=== PATIENT | male | born 1960 | race Caucasian/White ===

== ENCOUNTER 2022-07-14 12:38 | Inpatient (IN) | payer MEDICAID, SELFPAY ==
[2022-07-14] VITALS (8 sets, daily range): BP systolic 160–200; BP diastolic 90–100; PULSE 78–85; RESP 14–22; TEMP 36.6–37; O2SAT 95–99; BMI 20.5; BMI 20.4
--- NOTE | 2022-07-14 13:25 | ECG_ITS ---
APPROVED REPORT Exam: Resting ECG HR:82 bpm ECG Measurements Heart Rate 82 AXES IN 143 P 62 QRSd 93 QRS 63 QT 387 T 64 QTc 425 Conclusion SINUS RHYTHM WITH OCCASIONAL SUPRAVENTRICULAR PREMATURE COMPLEXES POSSIBLE RIGHT VENTRICULAR CONDUCTION DELAY [RSR (QR) IN V1/V2] BORDERLINE ECG UNCONFIRMED REPORT Electronically signed by : Jarett Nguyen MD 07/16/2022 19:59:10
--- NOTE | 2022-07-14 13:25 | ECG_ITS ---
APPROVED REPORT Exam: Resting ECG HR:67 bpm ECG Measurements Heart Rate 67 AXES KS 132 P 18 QRSd 93 QRS 76 QT 414 T 75 QTc 430 Conclusion SINUS RHYTHM NORMAL ECG UNCONFIRMED REPORT Electronically signed by : Jarett Nguyen MD 07/15/2022 20:05:04
--- NOTE | 2022-07-14 13:37 | CT_ITS ---
PROCEDURE INFORMATION: Exam: CTA Abdominal Aorta and Bilateral Lower Extremities (Run-off) With Contrast Exam date and time: 07/14/2022 2:10 PM Age: 61 years old Clinical indication: Edema and swelling, leg or foot; Location not specified; Patient HX: PT has right lower leg ischemia and swelling-- [facility] and he was without it for 8-10 days -- has pain swelling and discoloration of right lower leg calf area down; Additional info: Right lower extremity ischemia TECHNIQUE: Imaging protocol: Computed tomographic angiography of the of the abdominal aorta, pelvis and bilateral lower extremities with contrast. 3D rendering (Not supervised by radiologist): MIP and/or 3D reconstructed images were created by the technologist. Radiation optimization: All CT scans at this facility use at least one of these dose optimization techniques: automated exposure control; mA and/or kV adjustment per patient size (includes targeted exams where dose is matched to clinical indication); or iterative reconstruction. Contrast material: ISOVUE; Contrast volume: 120 ml; Contrast route: IV; COMPARISON: No relevant prior studies available. FINDINGS: Aorta: No aortic aneurysm. No aortic dissection. Celiac trunk and mesenteric arteries: No occlusion or significant stenosis. Renal arteries: No occlusion or significant stenosis. 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 Vascular stent noted in the right femoral artery. No flow evident within the right popliteal artery or three-vessel below the knee runoff. Right infrapopliteal arteries: See Right femoral/popliteal arteries finding. Left iliac arteries: Short-segment stenoses within the left common iliac artery and distal external iliac artery. Left femoral/popliteal arteries: Intermittent flow noted within the left common femoral and femoral arteries, with multiple segments of dense calcification noted. Flow noted in the left popliteal artery, with 3 vessel below the knee runoff to the level of the ankle. Left infrapopliteal arteries: No occlusion or significant stenosis. Liver: No mass. Gallbladder and bile ducts: Unremarkable. No calcified stones. No ductal dilation. Pancreas: Unremarkable. No mass. No ductal dilation. Spleen: Normal. No splenomegaly. Adrenal glands: Normal. No mass. Kidneys and ureters: Normal. No mass. Stomach and bowel: Unremarkable. No obstruction. No mucosal thickening. Appendix: No evidence of appendicitis. Urinary bladder: Unremarkable. No mass. Reproductive: Unremarkable as visualized. Intraperitoneal space: Unremarkable. No free air. No significant fluid collection. Lymph nodes: No lymphadenopathy. Bones/joints: No acute fracture. No dislocation. Soft tissues: Subcutaneous edema within the right lower leg and foot. Other findings: Extensive vascular calcification within the abdomen. IMPRESSION: 1. 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 2. Short-segment stenoses within the left common iliac artery and distal external iliac artery. 3. 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 Vascular stent noted in the right femoral artery. No flow evident within the right popliteal artery or three-vessel below the knee runoff. 4. Subcutaneous edema within the right lower leg and foot. 5. Intermittent flow noted within the left common femoral and femoral arteries, with multiple segments of dense calcification noted. Flow noted in the left
--- NOTE | 2022-07-14 13:45 | PC.NURSE ---
spoke with raj in pharmacy for heparin drip
[2022-07-14 13:48] LABS: Chloride 94 mmol/L (98-107)
[2022-07-14 13:49] LABS: Potassium 3.3 mmoL/L (3.5-5.1); Sodium 132 mmol/L (136-145)
[2022-07-14 13:51] LABS: Alanine Aminotransferase 113 U/L (12-78); Aspartate Amino Transferase 169 U/L (17-59); Blood Urea Nitrogen 11 mg/dl (9-20); Creatinine Clearance Estimated 64 mL/min (50-200); Estimated Glomerular Filt Rate 168 ml/min (>60); GFR (African American) 203 ML/MIN (>60)
--- NOTE | 2022-07-14 13:51 | HMH.EDGENADL ---
Discharge Plan Disposition Patient Disposition: Xfer Other Condition: Serious Clinical Impressions Clinical Impression: Critical limb ischemia of right lower extremity Discharge ED Provider: Lisa Sandoval Adult HPI General Chief complaint: PAIN Stated complaint: pain in Rt leg Time Seen by Provider: 07/14/22 12:43 Mode of Arrival: Wheelchair Source of Information: Patient Limitations: No Limitations Description of Symptoms (Recalled from ER Triage Doc. by RN): to ed per pvt car with c/o pain, swelling rt lower leg and foot. pt states hx of pvd with graft taking coumadin states was off meds x 7 days around lab[place] currently taking now. states seen at ct for same and they told me it needs to come off pt rt foot cold to touch, unable to obtain a pedal pulse with doppler on fritz extremities. swelling to rt lower leg c/o increasing pain unable to sleep at night. History of Present Illness HPI narrative: 61-year-old male presenting to the emergency department with right foot and leg pain. Symptoms started about 1 week ago, progressively getting worse. His right foot is painful, swollen, cool to the touch. Pain is constant, crampy, achy. The pain radiates into the calf and the upper leg. He has a history of vascular disease, has a stent that he calls, a cadaver graft in his thigh. He takes warfarin. Unfortunately, was out of his medication for about 1 week. Goal INR between 2 and 3. Says he has bad circulation, but has never been told that he has a DVT or PE. Current tobacco smoker Related Data Home Medications Medication Instructions Recorded Confirmed aspirin 81 mg chewable tablet 81 mg PO DAILY Heart disease 07/14/22 07/14/22 atorvastatin 80 mg tablet 80 mg PO DAILY Cholesterol 07/14/22 07/14/22 warfarin 10 mg tablet 10 mg PO DIRECTED Blood thinner 07/14/22 07/14/22 warfarin 7.5 mg tablet 7.5 mg PO DIRECTED Blood thinner 07/14/22 07/14/22 Allergies Allergy/AdvReac Type Severity Reaction Status Date / Time No Known Allergies Allergy Unverified 09/30/17 14:33 PFSH PFS Social History Smoking Status: Current every day smoker alcohol intake: never current occupational status: unemployed Travel in the last 8 weeks: None ROS Obtained: Yes All systems reviewed & no additional complaints except as documented Constitutional Constitutional: Reports body ache, Denies chills, Denies fever(s), Denies headache(s) and Reports weakness Eyes Eyes: Denies blurry vision and Denies loss of vision ENT Ears, Nose, Mouth, and Throat: Denies headache(s) Cardiovascular Cardiovascular: Reports acrocyanosis, Denies chest pain, Reports edema (right foot), Denies irregular heart rhythm, Denies palpitations and Reports pedal edema Respiratory Respiratory: Denies chest congestion, Denies cough and Denies pain with breathing Gastrointestinal Gastrointestingal: Denies abdominal pain, nausea or vomiting Musculoskeletal Musculoskeletal: Reports atrophy, Denies back pain, Denies joint swelling, Reports muscle cramps, Reports muscle weakness, Reports myalgias, Reports numbness and Denies tingling Integumentary/Breasts Skin/Breast: Reports change in pigmentation, Denies redness and Reports skin pain Neurologic Neurologic: Denies headache(s), Denies loss of vision, Reports numbness, Denies tingling and Reports weakness Endocrine Endocrine: Denies palpitations Hematologic/Lymphatic Henatologic/Lymphatic: Denies easy bleeding and Denies easy bruising Physical Exam General General appearance: alert and in no apparent distress Head Head exam: atraumatic and normocephalic Eye Eye exam: Present normal appearance and EOMI; Absent scleral icterus ENT ENT exam: Present normal exam and normal oropharynx Neck Neck exam: Present normal inspection Respiratory Respiratory exam: Present normal lung sounds bilaterally; Absent respiratory distress or wheezes Cardiovascular Cardiovascular exam: Present regular rate, normal rhythm
[2022-07-14 13:52] LABS: Albumin Level 3.9 g/dl (3.5-5.0); Albumin/Globulin Ratio 1.6 (1.1-1.8); Alkaline Phosphatase 151 U/L (38-126); Anion Gap 10.3 mEq/L (5-15); Bilirubin,Total 0.4 mg/dl (0.2-1.3); Calcium 8.8 mg/dl (8.4-10.2); Carbon Dioxide 31 mmol/L (22.0-30.0); Globulin 2.5 g/dL (1.3-3.2); Glucose 103 mg/dl (74-100); Total Protein,Serum 6.4 g/dl (6.3-8.2)
[2022-07-14 13:54] LABS: Activated Partial Thrombo Time 37.4 seconds (22.8-30.6); INR 3.23 (0.9-1.1); Prothrombin Time 32.6 seconds (10.1-12.5)
[2022-07-14 14:03] LABS: Basophils # 0.1 K/mm3 (0-0.2); Basophils % 0.4 % (0.1-2.0); Eosinophils # 0.1 K/mm3 (0.0-0.4); Eosinophils % 0.6 % (0.1-12.0); Hemoglobin 15.2 g/dL (14.1-18.0); Lymphocytes # 1.4 K/mm3 (0.7-4.5); Mean Corpuscular Hemoglobin 30.9 pg (27.0-31.2); Mean Corpuscular Volume 93.7 fl (80-94); Mean Platelet Volume 8.1 fl (7.4-10.4); Monocytes % 6.4 % (1.7-9.3); Neutrophils % 83.7 % (37.0-80.0); Platelet Count 336 K/mm3 (142-424); Red Cell Distribution Width 13.9 % (11.5-17.5); White Blood Count 15.5 K/mm3 (4.8-10.8)
[2022-07-14 14:06] LABS: MANUAL DIFFERENTIAL MANUAL DIFFERENTIAL (MANUAL DIFF)
--- NOTE | 2022-07-14 14:11 | PC.NURSE ---
pt to ct at this time
[2022-07-14 14:19] LABS: Lymphocytes % 11 % (10-50); Monocytes % 11 % (2-9); Neutrophils % 78 % (42-76); Platelet Estimate Normal; RBC Morphology Normal; Total Cells Counted 100
[2022-07-14 15:28] LABS: Coronavirus 19, PCR Not Detected (NotDetected); Influenza A, PCR Not Detected (NotDetected); Influenza B, PCR Not Detected (NotDetected)
--- NOTE | 2022-07-14 16:11 | PC.NURSE ---
placed call to [facility], Dr Marie speaking with Dr Jauregui
--- NOTE | 2022-07-14 16:18 | PC.NURSE ---
Dr Sandoval spoke with Dr aguayo, pt accepted awaiting call from hospitalist and transfer knitter
--- NOTE | 2022-07-14 17:11 | PC.NURSE ---
pt talking with on phone
--- NOTE | 2022-07-14 17:17 | PC.NURSE ---
[facility] was called for follow up, pt agrees to go to [facility], they will call hospitalist and to be advised that there are no immediate beds at this time but they will work on it.
--- NOTE | 2022-07-14 17:38 | PC.NURSE ---
urine output 1500cc
--- NOTE | 2022-07-14 18:01 | PC.NURSE ---
DR BOURNE SPEAKING WITH [facility]
--- NOTE | 2022-07-14 18:04 | PC.NURSE ---
Admitted per dr villa, still awaiting a bed
--- NOTE | 2022-07-14 18:12 | PC.NURSE ---
paged service doc
--- NOTE | 2022-07-14 18:12 | PC.NURSE ---
DR CANTOR SPOKE WITH DR SHARPE SAID IF WE ADMIT HERE HE WILL CONSULT
--- NOTE | 2022-07-14 18:40 | PC.NURSE ---
report called to floor
--- NOTE | 2022-07-14 20:21 | PC.NURSE ---
pt arrived to floor via stretcher at 20:10
[2022-07-14 20:51] LABS: PTT Heparin (inpatient only) 74.9 Seconds (23.6-34.0)
--- NOTE | 2022-07-14 20:55 | PC.NURSE ---
Spoke with Hellen at nightwatch. Notified of ptt 74.9. States to keep Heparin drip at 20ml/hr.
[2022-07-15] VITALS (23 sets, daily range): BP systolic 133–203; BP diastolic 71–113; PULSE 60–83; RESP 16–20; TEMP 36.6–37.3; O2SAT 90–99
--- NOTE | 2022-07-15 | IR_ITS ---
APPROVED REPORT Patient Location: Inpatient PROCEDURES Attempted left femoral artery access INDICATION Peripheral artery disease with limb threatening ischemia Informed consent was obtained prior to the procedure. COMPLICATIONS None Estimated Blood Loss: Less than 10 mls TECHNIQUE 1% lidocaine used to anesthetize the left femoral groin. Multiple attempts were made to cannulate the left femoral artery. The left femoral artery was small calcified and after several attempts it was decided even with cannulation the small vessel would probably not except a 6 Lebanese interventional sheath. It was decided the risk of the procedure outweighed the potential benefits as it was unlikely the right leg could be percutaneously revascularized and cannulating the small left femoral artery with a large sheath could potentially create limb threat ischemia to the left leg IMPRESSION Attempted left femoral artery access which was aborted PLAN 1. Transfer patient to vascular surgery for consideration of amputation in [place] Electronically signed by : Jenaro Alcala MD 07/25/2022 14:30:17
--- NOTE | 2022-07-15 00:11 | PC.NURSE ---
Pt bed scale does not work, pt is nonweight bearing, pt verbalized weight
--- NOTE | 2022-07-15 00:12 | PC.NURSE ---
Updated [facility] on pt status and care. No beds available at this time.
[2022-07-15 03:16] LABS: Basophils # 0.1 K/mm3 (0-0.2); Basophils % 0.5 % (0.1-2.0); Eosinophils # 0.1 K/mm3 (0.0-0.4); Eosinophils % 0.7 % (0.1-12.0); Hematocrit 47.2 % (42.0-52.0); Hemoglobin 15.1 g/dL (14.1-18.0); Lymphocytes # 1.3 K/mm3 (0.7-4.5); Lymphocytes % 8.4 % (10-50); Mean Corpuscular HGB Conc 32.1 g/dL (31.8-35.4); Mean Corpuscular Hemoglobin 29.8 pg (27.0-31.2); Mean Corpuscular Volume 93.1 fl (80-94); Mean Platelet Volume 8.3 fl (7.4-10.4); Monocytes # 0.9 K/mm3 (0.1-1.0); Monocytes % 5.4 % (1.7-9.3); Neutrophils # 13.5 K/mm3 (1.8-7.8); Neutrophils % 85.1 % (37.0-80.0); Platelet Count 323 K/mm3 (142-424); Red Blood Count 5.07 M/mm3 (4.60-6.20); Red Cell Distribution Width 13.8 % (11.5-17.5); White Blood Count 15.9 K/mm3 (4.8-10.8)
[2022-07-15 03:17] LABS: MANUAL DIFFERENTIAL MANUAL DIFFERENTIAL (MANUAL DIFF)
[2022-07-15 03:25] LABS: Anion Gap 10.2 mEq/L (5-15); Blood Urea Nitrogen 10 mg/dl (9-20); Calcium 8.5 mg/dl (8.4-10.2); Carbon Dioxide 31 mmol/L (22.0-30.0); Chloride 94 mmol/L (98-107); Creatinine Clearance Estimated 63 mL/min (50-200); Estimated Glomerular Filt Rate 168 ml/min (>60); GFR (African American) 203 ML/MIN (>60); Glucose 106 mg/dl (74-100); Potassium 3.2 mmoL/L (3.5-5.1); Sodium 132 mmol/L (136-145)
[2022-07-15 03:34] LABS: Lymphocytes % 10 % (10-50); Monocytes % 3 % (2-9); Neutrophils % 82 % (42-76); Platelet Estimate Normal; RBC Morphology Normal; Total Cells Counted 100
[2022-07-15 03:55] LABS: PTT Heparin (inpatient only) 72.8 Seconds (23.6-34.0)
--- NOTE | 2022-07-15 03:55 | PC.NURSE ---
Lab called with PTT 72.8 results given to patient nurse Yumiko.
--- NOTE | 2022-07-15 04:00 | PC.NURSE ---
Spoke with Hellen at night watch results 72.8 given. Stated no change in rate, next PTT 07/16/22 at 6 am. Repeated and Verified. Information relayed to Mary Carmen REICH.
--- NOTE | 2022-07-15 04:35 | PC.WOUNDNOTE ---
Line drawn where leg starts to feel cooler. No pulse felt in right foot (MD aware). Pallor and cyanosis noted below right calf.
--- NOTE | 2022-07-15 04:48 | PC.NURSE ---
Updated [facility] on pt status and care. No beds available at this time.
--- NOTE | 2022-07-15 04:53 | PC.NURSE ---
Pt drinks taken away at 0300. Pt notified of NPO status. Has been NPO since 299. Will pass along in report.
--- NOTE | 2022-07-15 04:56 | PC.NURSE ---
Shift summary: Pt AOx4. Pt has c/o pain in RLE multiple times t/o shift. PRN Morphine administered per MAR with favorable results. Pt BP was elevated at beginning of shift. MD production foreman made aware. Pt BP now WNL after pain management, Metoprolol tartrate 50mg once and Amlodipine 10mg once. Pt RLE swollen, pallor, cyanotic, pulseless, cool to the touch. Leg has became warmer through the night but it still cool compared to left. Photo consent obtained, see nurse wound note. Heparin drip is running at 20ml/hr. NPO since 07/15 300. No other c/o voiced to staff. Call light within reach.
--- NOTE | 2022-07-15 05:18 | INFXCTL.NOTE ---
Shift summary: Pt AOx4. Pt has c/o pain in RLE multiple times t/o shift. PRN Morphine administered per MAR with favorable results. Pt BP was elevated at beginning of shift. MD market research consultant made aware. Pt BP now WNL after pain management, Lisinopril 10mg once and Amlodipine 10mg once. Pt RLE swollen, pallor, cyanotic, pulseless, cool to the touch. Leg has became warmer through the night but it still cool compared to left. Photo consent obtained, see nurse wound note. Heparin drip is running at 20ml/hr. NPO since 07/15 300. No other c/o voiced to staff. Call light within reach.
--- NOTE | 2022-07-15 05:33 | PC.NURSE ---
Shift summary: Pt AOx4. Pt has c/o pain in RLE multiple times t/o shift. PRN Morphine administered per MAR with favorable results. Pt BP was elevated at beginning of shift. MD senior receptionist made aware. Pt BP now WNL after pain management, lisinopril 10mg PO once and Amlodipine 10mg once. Pt RLE swollen, pallor, cyanotic, pulseless, cool to the touch. Leg has became warmer through the night but it still cool compared to left. Photo consent obtained, see nurse wound note. Heparin drip is running at 20ml/hr. NPO since 07/15 300. No other c/o voiced to staff. Call light within reach.
--- NOTE | 2022-07-15 06:46 | PC.NURSE ---
Pt states it is ok to update friend, Kael Tolbert, on pt status.
--- NOTE | 2022-07-15 07:19 | EXP.PHA.VTE ---
[facility] Pharmacy VTE Monitoring Patient Demographics Admission date: 07/14/22 Report Date: 07/15/22 Time: 07:19 Patient Allergies No Known Allergies Allergy (Unverified 09/30/17 14:33) Height: 1.7 m Weight: 58.967 kg Current Active Problems (Updated 07/14/22 @ 20:31 by Mary Carmen Lam RN) Critical limb ischemia of right lower extremity (Acute) VTE Risk Labs: VTE Related Lab Results Hgb 15.1 g/dL (14.1-18.0) 07/15/22 03:10 Hct 47.2 % (42.0-52.0) 07/15/22 03:10 Plt Count 323 K/mm3 (142-424) 07/15/22 03:10 PT 32.6 seconds (10.1-12.5) H 07/14/22 13:35 INR 3.23 (0.9-1.1) H 07/14/22 13:35 APTT 72.8 Seconds (23.6-34.0) H* 07/15/22 03:10 BUN 10 mg/dl (9-20) 07/15/22 03:10 Creatinine 0.50 mg/dl (0.66-1.25) L 07/15/22 03:10 Estimated Creat Clear 63 mL/min (50-200) 07/15/22 03:10 Prophylaxis VTE Prophylaxis Ordered?: Yes Types of VTE Prophylaxis: Pharmacological Pharmacologic Type: Heparin
--- NOTE | 2022-07-15 07:42 | HMH.PHAHEP ---
[facility] Pharmacy Heparin Dosing Demographic Data Admission date:: 07/14/22 Date: 07/15/22 Time: 07:42 Allergies Allergy/AdvReac Type Severity Reaction Status Date / Time No Known Allergies Allergy Unverified 09/30/17 14:33 Height: 1.7 m Weight: 59.4 kg Indication Medication therapy:: Heparin Current Active Problems (Updated 07/20/22 @ 00:00 by Background Daemon) HTN (hypertension) (Acute) Current smoker (Acute) PAD (peripheral artery disease) (Acute) Critical limb ischemia of right lower extremity (Acute) CVA?: No Bleeding problem?: No Kidney disease?: No SD?: No Desired PTT range:: 50-75 seconds Labs Anticoagulation Lab Results:: 07/14/22 07/15/22 13:35 03:10 Hgb 15.2 15.1 Hct 46.0 47.2 Plt Count 336 323 Monitoring Dose Monitor 1: Date: 07/14/22 Time: 14:00 PTT Result:: 37.4 Infusion Rate:: 1,000 UNITS/HR Comment:: 4,700 UNIT BOLUS Dose Monitor 2: Date: 07/14/22 Time: 20:15 PTT Result:: 74.9 Infusion Rate:: 1,000 UNITS/HR Dose Monitor 3: Date: 07/15/22 Time: 03:10 PTT Result:: 72.8 Infusion Rate:: 1,000 UNITS/HR Dose Monitor 4: Date: 07/15/22 Time: 08:45 PTT Result:: 65.1 Infusion Rate:: 1,000 UNITS/HR Dose Monitor 5: Date: 07/15/22 Time: 14:53 PTT Result:: 54.9 Infusion Rate:: 1,000 UNITS/HR Dose Monitor 6: Date: 07/16/22 Time: 06:04 PTT Result:: 48.1 Infusion Rate:: INCREASE RATE TO 1,100 UNITS/HR Comment:: 3,000 UNIT BOLUS Dose Monitor 7: Date: 07/16/22 Time: 12:01 PTT Result:: 61.5 Infusion Rate:: 1,100 UNITS/HR Dose Monitor 8: Date: 07/16/22 Time: 18:00 Comment:: HEPARIN DRIP STOPPED Core Measures Is INR > or = 2 at discharge?: No Most Recent Labs:: Laboratory Results - last 24 hr 07/14/22 13:35: WBC 15.5 H, RBC 4.90, Hgb 15.2, Hct 46.0, MCV 93.7, MCH 30.9, MCHC 33.0, RDW 13.9, Plt Count 336, MPV 8.1, Neut % (Auto) 83.7 H, Lymph % (Auto) 9.0 L, [place] % (Auto) 6.4, Eos % (Auto) 0.6, Baso % (Auto) 0.4, Neut # (Auto) 13.0 H, Lymph # (Auto) 1.4, [place] # (Auto) 1.0, Eos # (Auto) 0.1, Baso # (Auto) 0.1, Total Counted 100, Neutrophils % (Manual) 78 H, Lymphocytes % (Manual) 11, Monocytes % (Manual) 11 H, Platelet Estimate Normal, RBC Morphology Normal 07/14/22 13:35: PT 32.6 H, INR 3.23 H, APTT 37.4 H 07/14/22 13:35: Sodium 132 L, Potassium 3.3 L, Chloride 94 L, Carbon Dioxide 31 H, Anion Gap 10.3, BUN 11, Creatinine 0.50 L, Estimated Creat Clear 64, Estimated GFR 168, Est GFR ( Amer) 203, Glucose 103 H, Calcium 8.8, Total Bilirubin 0.4, AST 169 H, ALT 113 H, Alkaline Phosphatase 151 H, Total Protein 6.4, Albumin 3.9, Globulin 2.5, Albumin/Globulin Ratio 1.6 07/14/22 15:21: SARS-CoV-2 (PCR) Not detected, Influenza A Untype (PCR) Not detected, Influenza Type B (PCR) Not detected 07/14/22 20:15: APTT 74.9 H* 07/15/22 03:10: APTT 72.8 H* 07/15/22 03:10: WBC 15.9 H, RBC 5.07, Hgb 15.1, Hct 47.2, MCV 93.1, MCH 29.8, MCHC 32.1, RDW 13.8, Plt Count 323, MPV 8.3, Neut % (Auto) 85.1 H, Lymph % (Auto) 8.4 L, [place] % (Auto) 5.4, Eos % (Auto) 0.7, Baso % (Auto) 0.5, Neut # (Auto) 13.5 H, Lymph # (Auto) 1.3, [place] # (Auto) 0.9, Eos # (Auto) 0.1, Baso # (Auto) 0.1, Total Counted 100, Neutrophils % (Manual) 82 H, Band Neutrophils % 5.0, Lymphocytes % (Manual) 10, Monocytes % (Manual) 3, Platelet Estimate Normal, RBC Morphology Normal 07/15/22 03:10: Sodium 132 L, Potassium 3.2 L, Chloride 94 L, Carbon Dioxide 31 H, Anion Gap 10.2, BUN 10, Creatinine 0.50 L, Estimated Creat Clear 63, Estimated GFR 168, Est GFR ( Amer) 203, Glucose 106 H, Calcium 8.5 Were Heparin and Warfarin started on the same day?: No If not, why?: TRANSITION FROM HEPARIN BACK TO WARFARIN
--- NOTE | 2022-07-15 09:12 | EXP.CARD.CON ---
History of Present Illness History of Present Illness Consult date: 07/15/22 Requesting physician: Bjorn Flor Chief complaint: Leg pain, ischemic limb Additional Medical History:: PAD s/p vascular intervention to right leg at [place] Coumadin use HLD Former drinker Current 2 ppd smoker History of present illness: 61 year old white male presented to ED with complaint of right leg/foot pain x 1 week. Reports prior vascular procedure done at [facility] with cadaver graft placed but is unsure of timeline. Patient takes Coumadin but states around day he missed about 8 doses because [facility]. Pain started then but got significantly worse the past week. Upon presentation to ER no DP pulses were palpable or dopplerable on the right side. A CTA of the abdomen with run off showed complete occlusion to the right common femoral artery with no three vessel flow and interittent flow within the left common femoral and femoral arteries with flow noted to the left popliteal aretery with 3 vessel below the knee run off to the level of the ankles. Labs showed slight leukocytosis, renal function was adequate and PT/INR was 3.2. Patient was counseled on need for urgent vascular intervention and was placed on transfer [facility] but no beds were available. Patient was started on Heparin drip and admitted for cardiology consult. This morning, patient is resting, reports has numbness to right leg. still smokes 2 ppd. Denies chest pain or soa. [facility] Medical History (Updated 07/15/22 @ 09:44 by Lisa Horan APRN) Hyperlipidemia Social History (Updated 07/14/22 @ 20:33 by Mary Carmen Lam RN) Smoking Status: Current every day smoker years smoked: 40 alcohol intake: never current occupational status: unemployed Travel in the last 8 weeks: None Review of Systems Constitutional Constitutional: Denies headache(s) and Reports weakness Eyes Eyes: Denies loss of vision ENT Ears, Nose, Mouth, and Throat: Denies headache(s) *Cardiovascular Cardiovascular: Denies chest pain *Musculoskeletal Musculoskeletal: Reports numbness and Denies tingling *Neurologic Neurologic: Denies headache(s), Denies loss of vision, Reports numbness, Denies tingling and Reports weakness Exam Data for Last 24 hours Vital signs and Labs for Last 24 Hours: Temp Pulse Resp BP Pulse Ox 98.9 F 72 67 H 154/80 H 98 07/15/22 08:00 07/15/22 04:00 07/15/22 08:00 07/15/22 08:00 07/15/22 08:00 Laboratory Results - last 24 hr 07/14/22 13:35: WBC 15.5 H, RBC 4.90, Hgb 15.2, Hct 46.0, MCV 93.7, MCH 30.9, MCHC 33.0, RDW 13.9, Plt Count 336, MPV 8.1, Neut % (Auto) 83.7 H, Lymph % (Auto) 9.0 L, [place] % (Auto) 6.4, Eos % (Auto) 0.6, Baso % (Auto) 0.4, Neut # (Auto) 13.0 H, Lymph # (Auto) 1.4, [place] # (Auto) 1.0, Eos # (Auto) 0.1, Baso # (Auto) 0.1, Total Counted 100, Neutrophils % (Manual) 78 H, Lymphocytes % (Manual) 11, Monocytes % (Manual) 11 H, Platelet Estimate Normal, RBC Morphology Normal 07/14/22 13:35: PT 32.6 H, INR 3.23 H, APTT 37.4 H 07/14/22 13:35: Sodium 132 L, Potassium 3.3 L, Chloride 94 L, Carbon Dioxide 31 H, Anion Gap 10.3, BUN 11, Creatinine 0.50 L, Estimated Creat Clear 64, Estimated GFR 168, Est GFR ( Amer) 203, Glucose 103 H, Calcium 8.8, Total Bilirubin 0.4, AST 169 H, ALT 113 H, Alkaline Phosphatase 151 H, Total Protein 6.4, Albumin 3.9, Globulin 2.5, Albumin/Globulin Ratio 1.6 07/14/22 15:21: SARS-CoV-2 (PCR) Not detected, Influenza A Untype (PCR) Not detected, Influenza Type B (PCR) Not detected 07/14/22 20:15: APTT 74.9 H* 07/15/22 03:10: APTT 72.8 H* 07/15/22 03:10: WBC 15.9 H, RBC 5.07, Hgb 15.1, Hct 47.2, MCV 93.1, MCH 29.8, MCHC 32.1, RDW 13.8, Plt Count 323, MPV 8.3, Neut % (Auto) 85.1 H, Lymph % (Auto) 8.4 L, [place] % (Auto) 5.4, Eos % (Auto) 0.7, Baso % (Auto) 0.5, Neut # (Auto) 13.5 H, Lymph # (Auto) 1.3, [place] # (Auto) 0.9, Eos # (Auto) 0.1, Baso # (Auto) 0.1, Total Counted 100, Neutrophils % (Manual) 82
[2022-07-15 09:30] LABS: Prothrombin Time 22.7 seconds (10.1-12.5)
[2022-07-15 09:34] LABS: PTT Heparin (inpatient only) 65.1 Seconds (23.6-34.0)
--- NOTE | 2022-07-15 09:42 | PC.NURSE ---
[facility] called, update given; no beds available at this time
--- NOTE | 2022-07-15 09:45 | PC.NURSE ---
pt off floor with manufacturing lab technician rn's
--- NOTE | 2022-07-15 09:48 | PC.NURSE ---
Notified pharmacy of critical ppt
--- NOTE | 2022-07-15 10:53 | PC.NURSE ---
pt arrived back to the floor via Selena Bernstein RN; left femoral bandage is clean, dry and intact
--- NOTE | 2022-07-15 12:54 | EXP.HP ---
History of Present Illness *Admission Date: 07/14/22 *Reason for visit:: Right leg pain *History of present illness: 61-year-old white male, normally attends the [facility] for his health care, who has a long history of vascular disease and has been on warfarin therapy-compliant with this-but remains a heavy smoker. Came to the emergency department with a 3-day history of pain in his right foot. Foot was found to have significant evidence of vascular compromise with pain, pallor, pulselessness, and CTA showed evidence of blockage without runoff visible in the femoral-popliteal area near where the patient had a bypass previously. Patient declined transfer to the [facility], and patient was placed on the wait list at [facility] for transfer for vascular surgery however admitted to our hospital for pain control and fluids and cardiology evaluation for possible percutaneous intervention if amenable. This morning patient feels much better after IV fluids, heparinization and pain control. His main concern seems to be when he can eat breakfast this morning [facility] Medical History (Updated 07/15/22 @ 09:44 by Lisa Horan APRN) Hyperlipidemia Social History (Updated 07/14/22 @ 20:33 by Mary Carmen Lam RN) Smoking Status: Current every day smoker years smoked: 40 alcohol intake: never current occupational status: unemployed Travel in the last 8 weeks: None Review of Systems Review of Systems Review of systems (narrative): Other than his leg pain patient's really without complaints, during the exam he fixates on when he can eat breakfast. Constitutional Constitutional: Denies headache(s) and Reports weakness Eyes Eyes: Denies loss of vision ENT Ears, Nose, Mouth, and Throat: Denies headache(s) *Musculoskeletal Musculoskeletal: Reports numbness and Denies tingling *Neurologic Neurologic: Denies headache(s), Denies loss of vision, Reports numbness, Denies tingling and Reports weakness Meds Home Medications and Allergies Home Medications Medication Instructions Recorded Confirmed Type aspirin 81 mg chewable tablet 81 mg PO DAILY Heart disease 07/14/22 07/14/22 History atorvastatin 80 mg tablet 80 mg PO DAILY Cholesterol 07/14/22 07/14/22 History warfarin 10 mg tablet 10 mg PO DIRECTED Blood thinner 07/14/22 07/14/22 History warfarin 7.5 mg tablet 7.5 mg PO DIRECTED Blood thinner 07/14/22 07/14/22 History New Prescriptions to Start Prescriptions: Allergies Allergy/AdvReac Type Severity Reaction Status Date / Time No Known Allergies Allergy Unverified 09/30/17 14:33 Exam Data for Last 24 hours Vital signs and Labs for Last 24 Hours: Temp Pulse Resp BP Pulse Ox 99.1 F 71 16 158/84 H 98 07/15/22 10:55 07/15/22 12:10 07/15/22 12:10 07/15/22 12:10 07/15/22 12:10 Laboratory Results - last 24 hr 07/14/22 13:35: WBC 15.5 H, RBC 4.90, Hgb 15.2, Hct 46.0, MCV 93.7, MCH 30.9, MCHC 33.0, RDW 13.9, Plt Count 336, MPV 8.1, Neut % (Auto) 83.7 H, Lymph % (Auto) 9.0 L, [place] % (Auto) 6.4, Eos % (Auto) 0.6, Baso % (Auto) 0.4, Neut # (Auto) 13.0 H, Lymph # (Auto) 1.4, [place] # (Auto) 1.0, Eos # (Auto) 0.1, Baso # (Auto) 0.1, Total Counted 100, Neutrophils % (Manual) 78 H, Lymphocytes % (Manual) 11, Monocytes % (Manual) 11 H, Platelet Estimate Normal, RBC Morphology Normal 07/14/22 13:35: PT 32.6 H, INR 3.23 H, APTT 37.4 H 07/14/22 13:35: Sodium 132 L, Potassium 3.3 L, Chloride 94 L, Carbon Dioxide 31 H, Anion Gap 10.3, BUN 11, Creatinine 0.50 L, Estimated Creat Clear 64, Estimated GFR 168, Est GFR ( Amer) 203, Glucose 103 H, Calcium 8.8, Total Bilirubin 0.4, AST 169 H, ALT 113 H, Alkaline Phosphatase 151 H, Total Protein 6.4, Albumin 3.9, Globulin 2.5, Albumin/Globulin Ratio 1.6 07/14/22 15:21: SARS-CoV-2 (PCR) Not detected, Influenza A Untype (PCR) Not detected, Influenza Type B (PCR) Not detected 07/14/22 20:15: APTT 74.9 H* 07/15/22 03:10: APTT 72.8 H* 07/15/22 03:10: WBC 15.9
--- NOTE | 2022-07-15 13:01 | HMH.PHAINT1 ---
Pharmacy Intervention Comments: Home medication reconciliation complete using [facility] pharmacy list ([facility]) and patient interview.
[2022-07-15 15:14] LABS: PTT Heparin (inpatient only) 54.9 Seconds (23.6-34.0)
--- NOTE | 2022-07-15 15:24 | PC.NURSE ---
notified pharmacy of pt's ptt result
--- NOTE | 2022-07-15 15:27 | PC.NURSE ---
Pt is alert and oriented x4. RLE is pale and cool to the touch. Pulses are not palpable or able to be dopplered. He has complained of pain in the right foot that's been treated with prn pain meds. Some relief noted on reassessment but he still reported pain. A SASKIA Horan notified and new order of 1mg dilaudid IV q4-6hrs prn ordered. 1 dose has been administered at this time and will reassess effectiveness. Dressing to left femoral site has gauze and tegaderm in place. It is clean, dry and intact. Appetite has been good. Pt's only complaint has been pain in the rle. Bed is locked and in the lowest position, call light is within reach.
--- NOTE | 2022-07-15 18:24 | PC.NURSE ---
[facility] called for update, no beds available at this time
--- NOTE | 2022-07-15 23:42 | PC.NURSE ---
karen with pt access at [facility] called for updated vital signs and status, states no bed available at this time but will update us when available
[2022-07-16] VITALS: BP 169/91; PULSE 62; PULSE 80; RESP 16; TEMP 37.2; O2SAT 98
[2022-07-16 04:00] VITALS: BP 197/93; PULSE 75; PULSE 76; RESP 16; TEMP 36.9; O2SAT 95
[2022-07-16 04:09] VITALS: BMI 20.5
[2022-07-16 04:35] VITALS: BP 176/86
--- NOTE | 2022-07-16 05:02 | PC.NURSE ---
no changes in previous assessment, no acute distress, V/S noted with elevated b/p SBP 149-197; maps have trended over 100, edema noted to RLE, redness and absent pedal pulse noted, pt with pain rated 10, pt is requiring dilaudid as prescribed every 4 hours, and soft non-tender, active bowel sounds, but states last BM was friday, hep gtt remains at 1000units/hr, pt is alert and oriented x4, skin dry and scaly, still awaiting bed at [facility], telemetry reveals NSR with occasional PVC's, no other issues noted at this time.
--- NOTE | 2022-07-16 05:17 | PC.NURSE ---
[facility] called with update on pt, states they should have a bed today for him and is working on getting one available and will keep us updated.
[2022-07-16 06:14] LABS: Basophils # 0.2 K/mm3 (0-0.2); Basophils % 1.6 % (0.1-2.0); Eosinophils # 0.1 K/mm3 (0.0-0.4); Eosinophils % 1.1 % (0.1-12.0); Hemoglobin 15.8 g/dL (14.1-18.0); Lymphocytes # 1.2 K/mm3 (0.7-4.5); Lymphocytes % 9.8 % (10-50); Mean Corpuscular HGB Conc 32.9 g/dL (31.8-35.4); Mean Corpuscular Volume 94.2 fl (80-94); Mean Platelet Volume 7.3 fl (7.4-10.4); Monocytes # 0.7 K/mm3 (0.1-1.0); Monocytes % 5.3 % (1.7-9.3); Neutrophils # 10.3 K/mm3 (1.8-7.8); Neutrophils % 82.1 % (37.0-80.0); Platelet Count 325 K/mm3 (142-424); White Blood Count 12.6 K/mm3 (4.8-10.8)
[2022-07-16 06:24] LABS: PTT Heparin (inpatient only) 48.1 Seconds (23.6-34.0)
--- NOTE | 2022-07-16 06:37 | HMH.PHAINT ---
0637 ptt called to fam maki, 48.1, note new orders to give 3000 unit bolus, increase hep gtt to 1100 units/hr, verified with tatyana barnes rn
[2022-07-16 07:56] VITALS: BP 189/79; PULSE 74; RESP 18; TEMP 37; O2SAT 96
--- NOTE | 2022-07-16 07:59 | PC.NURSE ---
RN aware of elevated bp.
[2022-07-16 08:00] VITALS: PULSE 80
--- NOTE | 2022-07-16 08:42 | EXP.PN ---
Subjective *Date: 07/16/22 *Time: 08:42 Interval history: Patient feels pretty good, his leg is painless unless he moves it around and put stress on the musculature and then he has fairly significant pain. Unfortunately interventional cardiology procedure was unsuccessful secondary to access problems given patient's significant vascular disease. Exam Data for Last 24 hours Vital signs and Labs for Last 24 Hours: Temp Pulse Resp BP Pulse Ox 98.6 F 74 18 189/79 H 96 07/16/22 07:56 07/16/22 07:56 07/16/22 07:56 07/16/22 07:56 07/16/22 07:56 Laboratory Results - last 24 hr 07/15/22 08:59: APTT 65.1 H* 07/15/22 08:59: PT 22.7 H, INR 2.20 H 07/15/22 14:53: APTT 54.9 H* 07/16/22 06:04: WBC 12.6 H, RBC 5.10, Hgb 15.8, Hct 48.0, MCV 94.2 H, MCH 31.0, MCHC 32.9, RDW 14.0, Plt Count 325, MPV 7.3 L, Neut % (Auto) 82.1 H, Lymph % (Auto) 9.8 L, [place] % (Auto) 5.3, Eos % (Auto) 1.1, Baso % (Auto) 1.6, Neut # (Auto) 10.3 H, Lymph # (Auto) 1.2, [place] # (Auto) 0.7, Eos # (Auto) 0.1, Baso # (Auto) 0.2 07/16/22 06:04: APTT 48.1 H I & O for Last 24 hours: Intake & Output 07/13/22 07/14/22 07/15/22 07/16/22 11:59 11:59 11:59 11:59 Intake Total 332 / 332 1296 / 1296 Output Total 1450 / 1450 2650 / 2650 Balance -1118 / -1118 -1354 / -1354 Weight 130 lb 15.273 oz 130 lb 11.922 oz Constitutional Comments: Patient's pleasant, chronically ill-appearing, lungs have good air movement with smokers rhonchi, heart rate regular. Abdomen soft, poor circulation as previously noted, pale and cold right foot with significant pain in the calf whenever it is moved. Assessment and Plan *Assessment and plan (1) Critical limb ischemia of right lower extremity: Status: Acute Category: Medical Code(s): I70.221 - Atherosclerosis of [place] arteries of extremities with rest pain, right leg Plan Plan will be to try to have vascular surgery see him, were currently trying to engage multiple facilities to try to find a bed for appropriate transfer.
--- NOTE | 2022-07-16 09:09 | P.PN_ITS ---
Subjective Subjective Date: 07/16/22 Time: 08:00 Principal diagnosis: ischemic RLE Interval history: Patient still waiting on transfer to higher level of care. Remains on Hep drip. BP elevated at 189/79, will plan to increase meds today. Leg remains cool to touch, pale in color. Patient denies leg pain unless moves extremity. Exam Data for Last 24 hours Vital signs and Labs for Last 24 Hours: Temp Pulse Resp BP Pulse Ox 98.6 F 74 18 189/79 H 96 07/16/22 07:56 07/16/22 07:56 07/16/22 07:56 07/16/22 07:56 07/16/22 07:56 Laboratory Results - last 24 hr 07/15/22 08:59: APTT 65.1 H* 07/15/22 08:59: PT 22.7 H, INR 2.20 H 07/15/22 14:53: APTT 54.9 H* 07/16/22 06:04: WBC 12.6 H, RBC 5.10, Hgb 15.8, Hct 48.0, MCV 94.2 H, MCH 31.0, MCHC 32.9, RDW 14.0, Plt Count 325, MPV 7.3 L, Neut % (Auto) 82.1 H, Lymph % (Auto) 9.8 L, [place] % (Auto) 5.3, Eos % (Auto) 1.1, Baso % (Auto) 1.6, Neut # (Auto) 10.3 H, Lymph # (Auto) 1.2, [place] # (Auto) 0.7, Eos # (Auto) 0.1, Baso # ( Auto) 0.2 07/16/22 06:04: APTT 48.1 H I & O for Last 24 hours: Intake & Output 07/13/22 07/14/22 07/15/22 07/16/22 23:59 23:59 23:59 23:59 Intake Total 1383 / 1383 245 / 245 Output Total 200 / 450 2000 / 2300 1900 / 1900 Balance -200 / -450 -617 / -917 -1655 / -1655 Weight 130 lb 130 lb 15.273 oz 130 lb 11.922 oz Constitutional Constitutional: no acute distress *Routine Respiratory Exam Respiratory: Present CTA bilaterally and symmetric chest movement *Routine Cardiovascular Exam Cardiovascular: Present RRR, Normal S1 and Normal S2 *Routine Abdominal Exam Abdominal: Present soft and normoactive bowel sounds; Absent tenderness *Routine Extremities Exam Extremities: Absent edema Comments: Right leg remains pale, cool to touch, no palpable pulses. *Routine Skin Exam Skin: Present intact, dry and warm Detailed Neck Exam: Thyroids Thyroid: Absent bruit Progress Note: A&P Assessment and plan (1) Critical limb ischemia of right lower extremity: Status: Acute Assessment and Plan Assessment and Plan for All Diagnoses:: Critical Limb ischemia-Right -Currently on Hep drip -No beds available for transfer to [facility] at this time. Patient is agreeable to runoff with possible intervention by Dr. Alcala at this facility. Discussed risks vs. benefits with patient. He agrees 07/16- s/p failed attempt at runoff yesterday. Remains on hep drip awaiting transfer to vascular facility Hx of PAD -[facility] -Continue statin. Trend elevated LFTs Tobacco use-Current 2 ppd smoker -Discussed smoking cession with patient HTN -Start Losartan 07/16- Remains elevated. Increased losartan. CV stable: continue hep drip, awaiting transfer to vascular facility.
--- NOTE | 2022-07-16 10:40 | PC.NURSE ---
Spoke with [facility] who states that no beds are available at this time but will notify me if one becomes available
[2022-07-16 11:50] VITALS: BP 154/98; PULSE 77; RESP 16; TEMP 36.9; O2SAT 98
[2022-07-16 12:34] LABS: PTT Heparin (inpatient only) 61.5 Seconds (23.6-34.0)
--- NOTE | 2022-07-16 12:49 | PC.NURSE ---
notified pharmacy of ptt results, no changes to heparin drip
--- NOTE | 2022-07-16 15:35 | EXP.DC.SUM ---
General Admission date:: 07/14/22 Discharge date: 07/16/22 HPI HPI HPI: 61-year-old white male, normally attends the [facility] for his health care, who has a long history of vascular disease and has been on warfarin therapy-compliant with this-but remains a heavy smoker. Came to the emergency department with a 3-day history of pain in his right foot. Foot was found to have significant evidence of vascular compromise with pain, pallor, pulselessness, and CTA showed evidence of blockage without runoff visible in the femoral-popliteal area near where the patient had a bypass previously. Patient declined transfer to the [place], and patient was placed on the wait list at [facility] for transfer for vascular surgery however admitted to our hospital for pain control and fluids and cardiology evaluation for possible percutaneous intervention if amenable. This morning patient feels much better after IV fluids, heparinization and pain control. His main concern seems to be when he can eat breakfast this morning Hospital Course Hospital Course Hospital Course: Patient was admitted, heparinize, felt better, IV fluids and pain control were given because of his critical limb ischemia based on clinical exam as well as the CT finding of occluded femoral-popliteal graft. No bed was available [place] for vascular surgery evaluation, and patient was evaluated by her local cardiology service for possible interventional procedures but unfortunately because of his vascular issues they were unable to have access adequate to assess the situation in the lower extremity circulation. Please see their op notes for details. The patient was continued heparinization and pain control and a bed was available this afternoon at the [facility] so that he can have definitive vascular surgery evaluation for possible bypass revascularization versus other surgical options. He will be transferred there today. Exam Data for Last 24 hours Vital signs and Labs for Last 24 Hours: Temp Pulse Resp BP Pulse Ox 98.4 F 77 16 154/98 H 98 07/16/22 11:50 07/16/22 11:50 07/16/22 11:50 07/16/22 11:50 07/16/22 11:50 Laboratory Results - last 24 hr 07/16/22 06:04: WBC 12.6 H, RBC 5.10, Hgb 15.8, Hct 48.0, MCV 94.2 H, MCH 31.0, MCHC 32.9, RDW 14.0, Plt Count 325, MPV 7.3 L, Neut % (Auto) 82.1 H, Lymph % (Auto) 9.8 L, [place] % (Auto) 5.3, Eos % (Auto) 1.1, Baso % (Auto) 1.6, Neut # (Auto) 10.3 H, Lymph # (Auto) 1.2, [place] # (Auto) 0.7, Eos # (Auto) 0.1, Baso # (Auto) 0.2 07/16/22 06:04: APTT 48.1 H 07/16/22 12:01: APTT 61.5 H* I & O for Last 24 hours: Intake & Output 07/14/22 07/15/22 07/16/22 07/17/22 11:59 11:59 11:59 11:59 Intake Total 332 / 332 1776 / 1776 480 / 480 Output Total 1450 / 1450 3250 / 3250 400 / 400 Balance -1118 / -1118 -1474 / -1474 80 / 80 Weight 130 lb 15.273 oz 130 lb 11.922 oz Constitutional Constitutional: no acute distress, thin, cachectic and chronically ill appearing *Routine HEENT Exam Head: Present normocephalic Eye: Present EOMI and PERRL ENT: Present mucous membranes moist *Routine Neck Exam Neck: Present supple; Absent lymphadenopathy *Routine Respiratory Exam Respiratory: Present CTA bilaterally *Routine Cardiovascular Exam Cardiovascular: Present RRR *Routine Abdominal Exam Abdominal: Present soft and normoactive bowel sounds; Absent tenderness *Routine Extremities Exam Extremities: Absent cyanosis, clubbing or edema Comments: Left lower extremity is noted to have no edema but diminished but present pulses. Right lower extremity is cold, calf swelling, intense pain with movement of the lower extremity musculature. No pulses palpable in the foot. *Routine Skin Exam Skin: Present warm; Absent rash *Routine Neurological Exam Neurological: Present alert and oriented X3 Results Data Completed and Pending Labs on day of discharge: Labs from last 24 hours 07/16/22 07/16/22 07/16/22
--- NOTE | 2022-07-16 15:40 | PC.NURSE ---
attempted to call report to [facility] but got no answer
[2022-07-16 15:54] VITALS: BMI 20.4
== END 2022-07-16 16:32 | disposition short-term general hospital (02) | DRG 301 ==
LOC: ER 17:26 → 2ND 18:28
PROVIDERS: Internal Medicine; Admitting Provider Internal Medicine Adolescent Medicine; Emergency Provider Emergency Medicine; Visit Provider Internal Medicine Adolescent Medicine
DX: I70.221 Atherosclerosis of native arteries of extremities with rest pain, right leg (principal); F17.210 Nicotine dependence, cigarettes, uncomplicated; Z79.01 Long term (current) use of anticoagulants; I10 Essential (primary) hypertension
CPT/HCPCS: 17250; 36415; 73701; 80048; 80053; 85007; 85025; 85610; 85730; 93005; 99152; 99291; C1725; C1769; C1894; C9803; J1644; Q9967; U0003; U0005

== ENCOUNTER 2023-03-21 08:00 | Outpatient (RCR) | payer MEDICAID, SELFPAY | END 2023-03-21 11:05 | disposition home or self-care (01) | LOC: PT 08:00 | PROVIDERS: Visit Provider Surgery Vascular Surgery | DX: Z89.611 Acquired absence of right leg above knee (principal); I99.8 Other disorder of circulatory system; E78.00 Pure hypercholesterolemia, unspecified; F17.210 Nicotine dependence, cigarettes, uncomplicated; I70.221 Atherosclerosis of native arteries of extremities with rest pain, right leg | CPT/HCPCS: 97110; 97112; 97116; 97163; 97164; 97530; 97535 ==

== ENCOUNTER → 2023-06-10 13:32 | Outpatient (CLI) | payer MEDICAID, SELFPAY ==
--- NOTE | 2023-06-10 | CT_ITS ---
FINAL REPORT TECHNIQUE: Axial CT images of the chest were obtained without contrast. Low-dose protocol was utilized. This study was performed with techniques to keep radiation doses as low as reasonably achievable (ALARA). Individualized dose reduction techniques using automated exposure control or adjustment of mA and/or kV according to the patient's size were employed. CLINICAL HISTORY: SMOKER SMOKES 1/2 PK PER DAY X 50 YRS COMPARISON: None FINDINGS: CT CHEST WITHOUT, LOW DOSE SCREENING CT Di Vol: 2.90 mGy DLP: 121.16 mGy*cm There is no axillary, mediastinal, or hilar adenopathy. The heart size is normal. There is no pleural or pericardial effusion. The lung windows show a 2 mm nodule in the periphery of the left upper lobe seen on image 27 of series 4. There is also a pleural-based nodule at the periphery of the right base measuring 5 mm best seen on image 63 of series 4. Limited images of the upper abdomen demonstrate no acute findings. IMPRESSION: LR Category 2: 12 month follow-up low-dose chest CT is recommended. Reviewed, Interpreted and Dictated by Adam Richardson MD Transcribed by Preethi Bowers Authenticated and [facility]
== END ==
PROVIDERS: Visit Provider Nurse Practitioner Family
DX: Z87.891 Personal history of nicotine dependence (principal); Z12.2 Encounter for screening for malignant neoplasm of respiratory organs
CPT/HCPCS: 71271

== ENCOUNTER 2023-08-07 09:00 | Outpatient (RCR) | payer MEDICAID, SELFPAY ==
--- NOTE | 2023-06-05 13:33 | HMH.PTOPEV ---
PT Outpatient Evaluation Rehab PT Outpatient Evaluation Start: 06/05/23 10:54 Freq: Status: Active Protocol: Document 06/05/23 10:55 MENDEZ (Rec: 06/05/23 13:32 MENDEZ [id number]) E-signed By Dolores James, PT Outpatient Therapy Subjective History Subjective History Pt is a 62 y/o male who reports to initial PT evaluation due to a ground- level fall last week. Pt reports he fell while ambulating into the hospital with his quad cane. Pt reports when he advanced his right leg the prosthetic knee folded up on him and he fell straight down. Pt denies injuries from the fall. Pt reports he was able to stand back up with minimal assistance from his and use of his cane. 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 Pt was treated by this PT ~4 months ago for gait training; however, admitted non- compliance with wear time of his prosthetis. Pt reports he was discouraged because he couldn't use his walking stick and had to use his rollator for safe gait so he quit attending PT. Pt reports he still only wears his prosthesis on Sundays to with use of a quad cane and now uses a power wheelchair for his main form of mobility. Pt reports he has not continued performing his HEP. Pt reports he has difficulty swinging the prosthetic limb during swing phase of gait and walks peg legged when he uses his quad cane. Pt reports he has difficulty navigating stairs and ramps with his quad cane as well. Pt reports he had a check-up with his surge
--- NOTE | 2023-07-07 10:58 | HMH.RHREAS ---
Rehab Reassessment Rehab OP Re-assessment Start: 06/05/23 10:54 Freq: Status: Active Protocol: Document 07/07/23 08:55 MENDEZ (Rec: 07/07/23 10:57 MENDEZ [id number]) E-signed By Dolores James PT Rehab Re-assessment Subjective Subjective Pt reports this is this the 5th day in a row he has worn his prosthesis for about an hour or so each day. Pt reports he has been compliant with his HEP with the prosthesis doffed which includes stretching and hip strengthening. Pt denies falls since starting PT. Pt reports his endurance and strength have improved overall. Objective Objective Notes Inspection: no open wounds visible Endurance: able to perform 15 minutes in NuStep with RPE 4/ 10 RLE MMT: 5/5 grossly with exception of hip extension and add 4+/5 R hip AROM: 8 degrees of hip extension Gait: step through pattern with quad cane, left trunk lean noted with increased WB through LUE on quad cane, able to correct with verbal cueing Assessment Progress Assessment Progressing as Expected Assessment Notes Pt has attended 10 PT visits consisting of aerobic exercise , LE stretching/strengthening, balance/proprioception and gait training with good tolerance. Pt demonstrated improved LE strength, endurance and gait this date compared to the initial evaluation. Pt demonstrated improved performance with control during sit to stand transfers and improved ability to shift weight onto the RLE and lock the prosthesis for safety. Pt continues to require maximal encouragement for compliance with prosthesis
--- NOTE | 2023-08-07 11:21 | HMH.RHREAS ---
Rehab Reassessment Rehab OP Re-assessment Start: 06/05/23 10:54 Freq: Status: Active Protocol: Document 08/07/23 08:59 MENDEZ (Rec: 08/07/23 11:21 MENDEZ [id number]) E-signed By Dolores James PT Rehab Re-assessment Subjective Subjective Pt reports he feels 90-100% improved since starting PT. Pt denies residual limb pain, red spots or numbness/tingling . Pt reports only brief phantom limb pain due to trying to wean off of Gabapentin. Pt reports compliance with his HEP and increased wear time of prosthesis within the last couple weeks to 5/7 days of the week. Pt reports he has been practicing ambulating with a SPC at home and is now able to traverse his ramp with his cane and a handrail. Pt denies recent falls. Pt reports he is interested in working with a service trainer at the [facility] wellness center upon discharge. Objective Objective Notes Girth at distal femur: 44 cm Hip extension AROM: 14 RLE MMT: 02/14 Gait: Step through pattern with SPC, requires occasional cues when fatigued for proper trunk alignment to assist with proper prosthesis mechanics Able to traverse a ramp and stairs with SPC and HR Assessment Progress Assessment Progressing as Expected Assessment Notes Pt has attended 18 PT visits consisting of aerobic exercise , LE stretching/strengthening, balance/proprioception and gait training with good tolerance. Pt met all PT goals and is appropriate to discharge to independent [facility]. Pt was encouraged and voiced interest in working with a service trainer at [facility] wellness center following discharge. Patient goals met ST/5
== END 2023-08-07 09:05 | disposition home or self-care (01) ==
LOC: PT 09:00
PROVIDERS: Visit Provider Nurse Practitioner Family
DX: Z89.611 Acquired absence of right leg above knee (principal); W19.XXXA Unspecified fall, initial encounter
CPT/HCPCS: 97110; 97116; 97163; 97164; 97530

== ENCOUNTER 2024-09-16 14:19 | Outpatient (CLI) | payer MEDICAID, SELFPAY ==
--- NOTE | 2024-09-16 | CT_ITS ---
FINAL REPORT TECHNIQUE: Axial images were obtained from the lung apex to the mid abdomen by computed tomography. This study was performed with techniques to keep radiation doses as low as reasonably achievable (ALARA). Individualized dose reduction techniques using automated exposure control or adjustment of mA and/or kV according to the patient's size were employed. CLINICAL HISTORY: HX OF TOBACCO current smoker 1ppd x50 years COMPARISON: 06/10/2023 FINDINGS: CHEST CT LOW DOSE CTDI vol (mGy): 2.90 DLP (mGy-cm): 115.16 There is no axillary adenopathy. There is no hilar or mediastinal adenopathy. There is severe coronary artery calcification. The heart is normal in size. There is no pericardial or pleural effusion. Lung window images demonstrate numerous nodules throughout both lungs measuring up to approximately 15 mm. Differential diagnosis would include metastatic disease or possibly mycobacterial/fungal disease. Limited images of the upper abdomen are unremarkable. IMPRESSION: Numerous nodules throughout both lungs, may represent metastatic disease or possibly mycobacterial/fungal disease. Lung RADS category 4B. Recommend PET/CT and biopsy. Findings were reported to Aliyah Lyles, nurse practitioner on 09/16/2024 at 3:55 PM Reviewed, Interpreted and Dictated by Salinas Stearns III, MD Transcribed by Michelle Almaguer Authenticated and . [facility]
== END 2024-09-16 23:59 | disposition home or self-care (01) ==
LOC: RAD 14:21
PROVIDERS: PCP Nurse Practitioner Family; Visit Provider Nurse Practitioner Family
DX: Z87.891 Personal history of nicotine dependence (principal)
CPT/HCPCS: 71271

== ENCOUNTER 2024-10-25 09:59 | Outpatient (RCR) | payer MEDICARE, MEDICAID, SELFPAY ==
--- NOTE | 2024-10-25 11:00 | HMH.PTOPEV ---
PT Outpatient Evaluation Rehab PT Outpatient Evaluation Start: 10/25/24 10:53 Freq: Status: Active Protocol: Document 10/25/24 10:53 JAHAIRA (Rec: 10/25/24 11:00 JAHAIRA [id number]) E-signed By Burak Figueroa, PT Outpatient Therapy Subjective History Subjective History The pt is a 63 yom who presents to [facility] outpatient Physical Therapy for a wheelchair evaluation. 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 He reports that he does have a prosthetic limb that he does not use and is otherwise non-ambulatory. No other medical conditions noted . New diagnosis of cancer in past 12 No months? Chief Complaint Weakness Symptoms Relieved By Nothing Prior Functional Limitations Lifting,Dressing,Standing, Squatting,Walking,Stairs, Balance,Bending/Stooping Current Functional Limitations Lifting,Housework,Dressing, Desk Work/Reading,Driving, Sleeping,Standing,Squatting, Recreation Activity,Walking, Stairs,Balance Symptom Description Intermittent Level of pain today (0-10) 0 Pain scale - at its best (0-10) 0 Pain scale - at its worst (0-10) 5 Miscellaneous Dx PT Eval Objective Objective LLE Strength: 5/5 globally RLE Strength: 2/5 into hip flexion, hip abd/add and hip extension. UE Strength: 5/5 globally Standing balance: Poor Intact Sensation. Outpatient Therapy Assessment Impairments Problems/Impairmments Impaired Transfers,Impaired Walking,Impaired Dressing Prognosis Rehab Potential Innapropriate for Skilled Therapy Comment The pt would benefit from the use of a power wheelchair. Skilled PT is not indicated for this pt, presently. Outpatient Therapy Plan of Care Frequency Times per week 1 Addendums This patient is a candidate for social No or vocational rehab? Patient/Guardian verbally acknowledges Yes understanding of treatment program and consents to further treatment? Patient/Guardian verbally acknowledges Yes understanding of diagnosis, prognosis and goals for treatment? Eval Complexity PT Charges 59823 - High Complexity Shoulder/Elbow Eval Shoulder Objective Measurements Elbow Objective Measurements PHYSICIAN CERTIFICATION: I certify the specified therapy services for Juventino Gipson are required, authorized, and reviewed every 30 days.
== END 2024-10-25 23:59 | disposition home or self-care (01) ==
LOC: PT 09:59
PROVIDERS: Visit Provider Nurse Practitioner Family
DX: Z89.611 Acquired absence of right leg above knee (principal)
CPT/HCPCS: 97163

== ENCOUNTER 2025-03-17 12:57 | Outpatient (CLI) | payer MEDICARE, MEDICAID, SELFPAY ==
--- NOTE | 2025-03-17 13:01 | CT_ITS ---
FINAL REPORT TECHNIQUE: Thin section axial images were obtained from the thoracic inlet through the upper abdomen after intravenous contrast injection. Reconstruction images were obtained from the axial data. Exam was performed using dose reduction technique. CLINICAL HISTORY: ABNORMAL LUNG CT, LUNG NODULE COMPARISON: 09/15/2024 CT low-dose FINDINGS: There is no axillary lymphadenopathy. Small AP window lymph nodes appear stable. Mildly enlarged subcarinal lymph node has increased in size. There is no right hilar lymphadenopathy. There is no pleural or pericardial effusion. There has been interval increase in size of all pulmonary nodule seen on the previous exam. Many of these are now confluent masses. Large confluent left lower lobe mass measures 7.3 x 6.0 cm. Confluent mass in the right lower lobe on image 61 measures 3.8 x 3.2 cm. These are almost certainly metastatic disease. Limited evaluation of the upper abdomen demonstrates subcentimeter hypodense lesion at the dome of the liver which is indeterminate and too small to accurately characterize. Confluent lymphadenopathy encases the celiac axis, not seen on the previous exam. On axial image 81 this measures 4.0 x 2.9 cm. No acute osseous abnormality. IMPRESSION: Interval increase in size and number of innumerable pulmonary nodules, many of which are now confluent masses. This is considered malignancy until proven otherwise. Recommend biopsy. Confluent soft tissue encasing the celiac axis, also likely metastatic disease. Reviewed, Interpreted and Dictated by Jazz Freedman MD Transcribed by Preethi Bowers Authenticated and [facility]
[2025-03-17 13:25] LABS: Blood Urea Nitrogen 7 mg/dl (9-20); Estimated Glomerular Filt Rate 166 ml/min (>60); GFR (African American) 201 ML/MIN (>60)
[2025-03-17] MEDS: SODIUM CHLORIDE 0.9% 10ML SYR (RAD ONLY) 10 ML IV (13:59)
[2025-03-17] MEDS: IOPAMIDOL-370 (76%);100ML BOTTLE 75 ML IV (13:59)
== END 2025-03-17 23:59 | disposition home or self-care (01) ==
LOC: RAD 12:58
PROVIDERS: PCP Nurse Practitioner Family; Visit Provider Nurse Practitioner Family
DX: C34.90 Malignant neoplasm of unspecified part of unspecified bronchus or lung (principal); R91.8 Other nonspecific abnormal finding of lung field
CPT/HCPCS: 36415; 71260; 82565; 84520; Q9967

== ENCOUNTER 2025-04-05 13:43 | Outpatient (CLI) | payer MEDICARE, MEDICAID, SELFPAY ==
--- NOTE | 2025-04-05 13:49 | CT_ITS ---
FINAL REPORT TECHNIQUE: Multiple axial CT sections were performed from the foramen magnum to the vertex. Coronal reformatted images were also obtained. Precontrast and postcontrast injection images were obtained. This study was performed with technique to keep radiation doses as low as reasonably achievable, (ALARA). Individualized dose reduction techniques using automated exposure control or adjustment of mA and/or kV according to the patient size were employed. CLINICAL HISTORY: lung mass - looking to see if it has spread anywhere else FINDINGS: The ventricles are normal in size. There is no evidence of hemorrhage. No masses are identified. No extra-axial fluid collection is seen. Left maxillary sinusitis is noted. No osseous abnormality is seen on the bone window images. Postcontrast images demonstrate no abnormal enhancement. IMPRESSION: Unremarkable CT of the head with and without contrast. Reviewed, Interpreted and Dictated by Tracy Overton MD Transcribed by Hiwot Stanley Authenticated and [facility]
--- NOTE | 2025-04-05 13:49 | CT_ITS ---
FINAL REPORT TECHNIQUE: Axial CT of the abdomen and pelvis, without and with IV contrast. This study was performed with techniques to keep radiation doses as low as reasonably achievable, (ALARA). Individualized dose reduction techniques using automated exposure control or adjustment of mA and/or kV according to the patient''s size were employed. CLINICAL HISTORY: lung mass - looking to see if it has spread anywhere else COMPARISON: 03/17/2025 FINDINGS: Abdomen: Innumerable pulmonary nodules are seen at the lung bases consistent with widespread metastatic disease. There is left lower lobe consolidation which could be neoplastic or infectious. A small cyst is seen in the central liver without obvious liver metastasis. Remaining solid abdominal organs and gallbladder are unremarkable. There is fluid-filled large and small bowel. Left colon is decompressed. Findings could represent ileus. Although, colonic obstruction at the splenic flexure is not entirely excluded. If further evaluation is needed. Recommend CT with oral contrast and delayed imaging by 3-6 hours or Gastrografin enema. Pelvis: There is fluid-filled borderline distended small bowel. No free fluid is seen. There is no pelvic adenopathy. 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 There is also an occluded femoral bypass graft. IMPRESSION: Extensive pulmonary metastasis at the lung bases. No evidence of metastatic disease to the liver or adrenal glands. Fluid-filled, mildly distended large and small bowel, favor ileus. Although, obstruction of the distal colon not excluded. This can be further evaluated with CT of the abdomen pelvis with oral contrast and delayed imaging or Gastrografin enema. Reviewed, Interpreted and Dictated by Tracy Overton MD Transcribed by Hiwot Stanley Authenticated and . [facility]
--- OUTSIDE RECORDS SUMMARY | 2025-04-05 13:49 | XMS_ITS | Clinical Summary ---
Author Organization [facility] Address [address] [place] [address] Phone Care Team Providers Care Harmonica Maker Name Role Phone En Raines MD [facility] [phone] Conditions or Problems No information available. Medications No information available. Medications Administered No information available. Allergies, Adverse Reactions, Alerts No information available. Results No information available. Plan of Care No information available. Procedures No information available. Vital Signs No information available. Immunizations No information available. Advance Directives No information available.
--- OUTSIDE RECORDS SUMMARY | 2025-04-05 13:50 | XMS_ITS | Clinical Summary ---
Author Organization [facility] Address [address] [place] [address] Care Team Providers Care Animal Rehabilitator Name Role Phone Unavailable Primary Care Provider Unavailabl e Allergies No known active allergies Social History Tobacco Use Types Packs/Day Years Used Date Smoking Tobacco: Never Assessed Interpersonal Safety Answer Date Record ed Family or friends hurt you Not on file 10/23 Family or friends insult you Not on file 08/2024 Family or friends threaten you Not on file 0 10/23/2023 Family or friends scream or curse at you Not on file 10/23/2023 Housing Stability Answer Date Recorded Living situation today Not on file Living situation problems Not on file 2023 Family and Community Support Answer Dimitris e Recorded Help with Day to Day Activities Not on file 10/23/2023 Feeling Lonely or Isolated Not on file 10/23 Educational Attainment Answer Date Yuriy rded Speak language other than Romanian at home Not on file 10/23/2023 Want help with school or training Not on file 10/23/2023 Depression Answer Date Recorded PHQ-2 Risk Not on file 10/23/2023 Disabilities Answer Date Recorded Difficulty concentrating Not on file 024 Difficulty doing errands alone Not on file 0 10/23/2023 Substance Use Answer Date Recorded Used prescription meds for non-medical reasons N ot on file 10/23/2023 Used illegal drugs past 12 months Not on file 10/23/2023 Sex and Gender Information Value Date Recorded Sex Assigned at Not on file Legal Sex Male 4:23 PM CDT Gender Identity Not on file Sexual Orientation Not on file Plan of Treatment Health Maintenance Due Date Last Done Comments CT Colonography 1958 Colonoscopy 1958 Colorectal Cancer Screening 1958 FOBT/FIT 1958 Fit-DNA (Cologuard) 1958 Sigmoidoscopy 1958 Depression Screening (12+) 1970 Tobacco Cessation Counseling and Screening (12+) 12/21 Hepatitis C Screening 1976 DTAP/TDAP/TD VACCINES (1 - Tdap) 1977 Pneumococcal 50+ years (1 of 1 - PCV) 2008 Shingles Vaccine (Zoster) (1 of 2) 2008 COVID-19 VACCINE (1 - season) 2024 Falls Risk Screening 10/13/2024 Influenza Vaccine (Season Ended) 2025 Respiratory Syncytial Virus (RSV) Adult or (1 - 1-dose 75+ series) 2033 Medical Devices Implanted Type Area Flat Knitter Device Identifier Shelf Expiration Date Model / Serial / Lot Grft Eptfe-Heparin Rng [id number] - [id number] Implanted:Qty : 1 on 07/18/2022 by Roly Savage at [facility] IMPLANTS N/A: Aleks YATES GORE & ASSC:MED PRDT 09/17/2025 [id number] / [id number] / Stnt Vbx Blln Endo [id number] - [id number] Implanted:Qty : 1 on 07/18/2022 by Roly Savage at [facility] IMPLANTS N/A: Aleks YATES GORE & ASSC:MED PRDT 01/16/2025 [id number] / [id number] / Cath [id number] - [id number] Implanted:Qty : 1 on 07/18/2022 by Roly Savage at [facility] IMPLANTS N/A: Aleks YATES GORE & ASSC:MED PRDT 05/11/2023 [id number] / [id number] / Insurance [facility] MEDICAID [facility]
--- OUTSIDE RECORDS SUMMARY | 2025-04-05 13:50 | XMS_ITS | Referral Summary ---
Author Organization [facility] Address [address] [place] [address] Care Team Providers Care Business Continuity Specialist Name Role Phone Unavailable Primary Care Provider [...] Date Yuriy rded Speak language other than Chadian at home Not on file 10/23/2023 Want [...] Orientation Not on file Plan of Treatment Not on file Medical Devices Implanted Type Area Fish Farm Manager Device Identifier Shelf Expiration Date Model / Serial / Lot Grft Eptfe-Heparin Rng [id number] - [id number] Implanted:Qty : 1 on 07/18/2022 by Roly Savage at [facility] IMPLANTS N/A: Groin WL GORE & ASSC:MED PRDT 09/17/2025 [id number] / [id number] / Stnt Vbx Blln Endo [id number] - [id number] Implanted:Qty : 1 on 07/18/2022 by Roly Savage at [facility] IMPLANTS N/A: Groin WL GORE & ASSC:MED PRDT 01/16/2025 [id number] / [id number] / Cath [id number] - [id number] Implanted:Qty : 1 on 07/18/2022 by Roly Savage at [facility] IMPLANTS N/A: Groin WL GORE & ASSC:MED PRDT 05/11/2023 [id number] / [id number] / Insurance [facility] MEDICAID [facility]
--- OUTSIDE RECORDS SUMMARY | 2025-04-05 13:50 | XMS_ITS | Clinical Summary ---
Author Organization [facility] Address [address] [place] [address] Care Team Providers Care Medical Underwriter Name Role Phone Unavailable Primary Care Provider Unavailabl e Social History Tobacco Use Types Packs/Day Years Used Date Smoking Tobacco: Never Assessed Sex and Gender Information Value Date Recorded Sex Assigned at Not on file Legal Sex Male 6:21 PM EDT Gender Identity Not on file Sexual Orientation Not on file Plan of Treatment Health Maintenance Due Date Last Done Comments [facility]-Depression Screening 1958 [facility]-/Child/Adol SDOH Screenings 1958 [facility]- SDOH Screenings 1976 [facility]-Adult SDOH Screenings 1976 [facility]-DTaP,Tdap,and Td Vaccine s (1 - Tdap) 1977 CT Colonography 12/22/2003 Colonoscopy 12/22/2003 FIT-DNA 12/22/2003 FIT 12/22/2003 FOBT 12/22/2003 Sigmoidoscopy 12/22/2003 [facility]-Colorectal Cancer Screening 12/22/2003 [facility]-Pneumococcal Vaccine: 50 + Years (1 of 1 - PCV) 2008 [facility]-Zoster Vaccines (1 of 2) 2008 [id number] Vaccine (1 - 20 24-25 season) 2024 [facility]-Influenza Vaccine (Seaso n Ended) 2025 [facility]-RSV Vaccine: 60+ Years o r (1 - 1-dose 75+ series) 2033 HPV Vaccines Aged Out No longer eligi ble based on patient's age to complete this topic [facility]-HIB Vaccines Aged Out No longer e ligible based on patient's age to complete this topic [facility]-Hepatitis A Vaccines Aged Out No longer eligible based on patient's age to complete this topic [facility]-IPV Vaccines Aged Out No longer e ligible based on patient's age to complete this topic [facility]-Rotavirus Vaccines Aged Out No lo nger eligible based on patient's age to complete this topic
[2025-04-05] MEDS: SODIUM CHLORIDE 0.9% 10ML SYR (RAD ONLY) 10 ML IV (14:30)
[2025-04-05] MEDS: IOPAMIDOL-370 (76%);100ML BOTTLE 175 ML IV (14:30)
== END 2025-04-05 23:59 | disposition home or self-care (01) ==
LOC: RAD 13:46
PROVIDERS: PCP Internal Medicine Adolescent Medicine; Visit Provider Internal Medicine Adolescent Medicine
DX: C80.1 Malignant (primary) neoplasm, unspecified (principal); C78.02 Secondary malignant neoplasm of left lung; C78.01 Secondary malignant neoplasm of right lung; K63.89 Other specified diseases of intestine
CPT/HCPCS: 70470; 74178; Q9967

== ENCOUNTER 2025-04-07 13:58 | Outpatient (CLI) | payer MEDICARE, SELFPAY ==
--- OUTSIDE RECORDS SUMMARY | 2025-04-07 14:02 | XMS_ITS | Clinical Summary ---
Author Organization [facility] Address [address] [place] [address] Care Team Providers Care Movie Machine Operator Name Role Phone Unavailable Primary Care Provider [...] Date Yuriy rded Speak language other than Congolese at home Not on file 10/23/2023 Want [...] series) 2033 Medical Devices Implanted Type Area Special Collections Librarian Device Identifier Shelf Expiration Date Model / Serial / Lot Grft Eptfe-Heparin Rng [id number] - [id number] Implanted:Qty : 1 on 07/18/2022 by Roly Savage at [facility] IMPLANTS N/A: Aleks YATES GORE & ASSC:MED PRDT 09/17/2025 [id number] / [id number] / Stnt Vbx Blln Endo [id number] - [id number] Implanted:Qty : 1 on 07/18/2022 by Roly Savage at [facility] IMPLANTS N/A: Aleks YATES GORE & ASSC:MED PRDT 01/16/2025 [id number] / [id number] / Cath [id number] - [id number] Implanted:Qty : 1 on 07/18/2022 by Roly Savage at [facility] IMPLANTS N/A: Aleks YATES GORE & ASSC:MED PRDT 05/11/2023 [id number] / [id number] / Insurance [facility] MEDICAID [facility]
--- OUTSIDE RECORDS SUMMARY | 2025-04-07 14:02 | XMS_ITS | Referral Summary ---
Author Organization [facility] Address [address] [place] [address] Care Team Providers Care Cooker Cleaner Name Role Phone Unavailable Primary Care Provider [...] Date Yuriy rded Speak language other than Togolese at home Not on file 10/23/2023 Want [...] on file Medical Devices Implanted Type Area Cosmetic Assembler Device Identifier Shelf Expiration Date Model / Serial / Lot Grft Eptfe-Heparin Rng [id number] - [id number] Implanted:Qty : 1 on 07/18/2022 by Roly Savage at [facility] IMPLANTS N/A: Groin WL GORE & ASSC:MED PRDT 09/17/2025 [id number] / [id number] 19 / Stnt Vbx Blln Endo [id number] - [id number] Implanted:Qty : 1 on 07/18/2022 by Roly Savage at [facility] IMPLANTS N/A: Groin WL GORE & ASSC:MED PRDT 01/16/2025 [id number] / [id number] / Cath [id number] - [id number] Implanted:Qty : 1 on 07/18/2022 by Roly Savage at [facility] IMPLANTS N/A: Groin WL GORE & ASSC:MED PRDT 05/11/2023 [id number] / [id number] / Insurance [facility] MEDICAID [facility]MIN[facility]
--- OUTSIDE RECORDS SUMMARY | 2025-04-07 14:02 | XMS_ITS | Clinical Summary ---
Author Organization [facility] Address [address] [facility] [address] [place] [address] Phone Care Team Providers Care Sheet Metal Mechanic Name Role Phone En Raines MD [facility] [phone] Conditions or Problems No information available. Medications No information available. Medications Administered No information available. Allergies, Adverse Reactions, Alerts No information available. Results No information available. Plan of Care No information available. Procedures No information available. Vital Signs No information available. Immunizations No information available. Advance Directives No information available.
--- OUTSIDE RECORDS SUMMARY | 2025-04-07 14:02 | XMS_ITS | Clinical Summary ---
Author Organization [facility] Address [address] [place] [address] Care Team Providers Care Telecommunicator Name Role Phone Unavailable Primary Care Provider [...] 2008 UKY-Zoster Vaccines (1 of 2) 2008 [id number] Vaccine (1 - 20 24-25 season) 2024 [...]
[2025-04-10 12:09] LABS: Aspergillus flavus Negative (Neg:<1:1); Aspergillus fumigatus Negative (Neg:<1:1); Aspergillus niger Negative (Neg:<1:1); Blastomyces Antibody Negative (Neg:<1:1)
== END 2025-04-07 23:59 | disposition home or self-care (01) ==
LOC: LAB 14:01
PROVIDERS: PCP Nurse Practitioner Family; Visit Provider Internal Medicine Pulmonary Disease
DX: K63.89 Other specified diseases of intestine (principal); R91.8 Other nonspecific abnormal finding of lung field; J98.4 Other disorders of lung
CPT/HCPCS: 36415; 82378; 86606; 86612

== ENCOUNTER 2025-04-13 13:19 | Outpatient (CLI) | payer MEDICARE, MEDICAID, SELFPAY ==
--- OUTSIDE RECORDS SUMMARY | 2025-04-12 10:20 | XMS_ITS | Encounter Summary ---
Author Organization [employer] ([place], [place], [place], [place]) Address [address] [place] [address] Care Team Providers Care Street Contractor Name Role Phone Unavailable Primary Care Provider Unavailabl e Reason for Referral * CAT Scan (Routine) - Pending Review Specialty Diagnoses / Procedures Referred By Contac t Referred To Contact Radiology Diagnoses Lung nodule Procedures PET/CT Skull Base-Mid Thigh (Whole Body) Maddison Pena MD [address] [place] [employer] [address] [place] [address] Phone: tel: fax: Referral ID Status Reason Start Date Expiration Date V isits Requested Visits Authorized [id number] Pending Review 04/08/2025 04/08/2026 1 1 Reason for Visit * CAT Scan (Routine) - Pending Review Specialty Diagnoses / Procedures Referred By Contac t Referred To Contact Radiology Diagnoses Lung nodule Procedures PET/CT Skull Base-Mid Thigh (Whole Body) Maddison Pena MD [address] [place] [address] Phone: tel: fax: Referral ID Status Reason Start Date Expiration Date V isits Requested Visits Authorized [id number] Pending Review 04/08/2025 04/08/2026 1 1 Encounter Details Date Type Department Care Team (Latest Contact Info) Description 04/12/2025 10:20 AM EDT - 04/12/2025 11:59 PM EDT Hospital Encounter [facility] PET CT - [address] [place] [address] Maddison Pena MD [address] [place] [address] [address] Lung nodule Discharge Disposition: Home or Self Care Social History Tobacco Use Types Packs/Day Years Used Date Smoking Tobacco: Never Assessed Family and Community Support Answer Dimitris e Recorded Help with Day to Day Activities Not on file 10/23/2023 Feeling Lonely or Isolated Not on file 10/23 Educational Attainment Answer Date Yuriy rded Speak language other than Nepali at home Not on file 10/23/2023 Want [...]
--- OUTSIDE RECORDS SUMMARY | 2025-04-13 13:25 | XMS_ITS | Clinical Summary ---
Author Organization [facility] Address [address] [facility] [address] [place] [address] Phone Care Team Providers Care Hydraulic Repairer Name Role Phone En Raines MD [facility] [phone] Conditions or Problems No information available. Medications No information available. Medications Administered No information available. Allergies, Adverse Reactions, Alerts No information available. Results No information available. Plan of Care No information available. Procedures No information available. Vital Signs No information available. Immunizations No information available. Advance Directives No information available.
--- OUTSIDE RECORDS SUMMARY | 2025-04-13 13:27 | XMS_ITS | Clinical Summary ---
Author Organization [employer] ([place], [place], [place], [place]) Address [address] [place] [address] Care Team Providers Care Sports Team Manager Name Role Phone Unavailable Primary Care Provider Unavailabl e Allergies No known active allergies Encounters Date Type Department Care Team Description 04/12/2025 10:20 AM EDT - 04/12/2025 11:59 PM EDT Hospital Encounter [facility] PET CT - [address] [place] [address] Maddison Pena MD Lung nodule Discharge Disposition: Home or Self Care from Last 3 Months Social History Tobacco Use Types Packs/Day Years Used Date Smoking Tobacco: Never Assessed Family and Community Support Answer Dimitris e Recorded Help with Day to Day Activities Not on file 10/23/2023 Feeling Lonely or Isolated Not on file 10/23 Educational Attainment Answer Date Yuriy rded Speak language other than Moroccan at home Not on file 10/23/2023 Want [...] 1976 DTAP/TDAP/TD VACCINES (1 - Tdap) 1977 09/06/20 14 Pneumococcal 50+ years (1 of 2 - PCV) 1977 Shingles Vaccine (Zoster) (1 of 2) 2008 Respiratory Syncytial Virus (RSV) Adult or (1 - Risk 60-74 years 1-dose series) 2018 COVID-19 VACCINE (1 - season) 2024 Falls Risk Screening 10/13/2024 Influenza Vaccine (#1) 2025 Medical Devices Implanted Type Area Spray Maker Device Identifier Shelf Expiration Date Model / Serial / Lot Gr Eptfe-Heparin Rng [id number] - [id number] Implanted:Qty : 1 on 07/18/2022 by Roly Savage at [facility] IMPLANTS N/A: Aleks BONE & ASSC:MED PRDT 09/17/2025 [id number] / [id number] / Stnt Vbx Blln Endo [id number] - [id number] Implanted:Qty : 1 on 07/18/2022 by Roly Savage at [facility] IMPLANTS N/A: Aleks BONE & ASSC:MED PRDT 01/16/2025 [id number] / [id number] / Cath [id number] - [id number] Implanted:Qty : 1 on 07/18/2022 by Roly Savage at [facility] IMPLANTS N/A: Aleks BONE & ASSC:MED PRDT 05/11/2023 [id number] / [id number] / Procedures Procedure Name Priority Date/Time Associated Diagnosis Comments P.E.T./CT SKULL BASE TO MID-THIGH Routine 04/12/2025 12:49 PM EDT Lung nodule from Last 3 Months Results * PET/CT Skull Base-Mid Thigh (Whole [...] MD IMG CT ORDERABLES Final Resul t from Last 3 Months Insurance [employer] MEDICAID [facility]
--- OUTSIDE RECORDS SUMMARY | 2025-04-13 13:27 | XMS_ITS | Clinical Summary ---
Author Organization [facility] Address [address] [place] [address] Care Team Providers Care Tire Installer Name Role Phone Unavailable Primary Care Provider [...] 2008 UKY-Zoster Vaccines (1 of 2) 2008 [id number] Vaccine (1 - 20 24-25 season) 2024 [...]
--- OUTSIDE RECORDS SUMMARY | 2025-04-13 13:27 | XMS_ITS | Referral Summary ---
Author Organization [employer] ([place], [place], [place], [place]) Address [address] [place] [address] Care Team Providers Care Lace Winder Name Role Phone Unavailable Primary Care Provider Unavailabl e Encounters Date Type Department Care Team Description 04/12/2025 10:20 AM EDT - 04/12/2025 11:59 PM EDT Hospital Encounter [facility] PET CT - [address] [place] [address] Maddison Pena MD Lung nodule Discharge Disposition: Home or Self Care from Last 3 Months Allergies No known active allergies Social History Tobacco Use Types Packs/Day Years Used Date Smoking Tobacco: Never Assessed Family and Community Support Answer Dimitris e Recorded Help with Day to Day Activities Not on file 10/23/2023 Feeling Lonely or Isolated Not on file 10/23 Educational Attainment Answer Date Yuriy rded Speak language other than Kittitian at home Not on file 10/23/2023 Want [...] on file Medical Devices Implanted Type Area Criminal Intelligence Analyst Device Identifier Shelf Expiration Date Model / Serial / Lot Grft Eptfe-Heparin Rng [id number] - [id number] Implanted:Qty : 1 on 07/18/2022 by Roly Savage at [facility] IMPLANTS N/A: Aleks BONE & ASSC:MED PRDT 09/17/2025 [id number] / [id number] 19 / Stnt Vbx Blln Endo [id number] - [id number] Implanted:Qty : 1 on 07/18/2022 by Roly Savage at [facility] IMPLANTS N/A: Groin WL GORE & ASSC:MED PRDT 01/16/2025 [id number] / [id number] / Cath [id number] - [id number] Implanted:Qty : 1 on 07/18/2022 by Roly Savage at [facility] IMPLANTS N/A: Groin WL GORE & ASSC:MED PRDT 05/11/2023 [id number] / [id number] / Procedures Procedure Name Priority Date/Time Associated [...] Resul t from Last 3 Months [facility]
[2025-04-13 13:32] VITALS: BMI 17.0
--- NOTE | 2025-04-13 13:37 | ECG_ITS ---
APPROVED REPORT Exam: Resting ECG HR:104 bpm ECG Measurements Heart Rate 104 AXES VA 145 P 66 QRSd 96 QRS 52 QT 329 T 65 QTc 390 Conclusion SINUS TACHYCARDIA POSSIBLE LEFT ATRIAL ENLARGEMENT [-0.1mV P-WAVE IN V1/V2] ABNORMAL RHYTHM ECG UNCONFIRMED REPORT Electronically signed by : Jarett Nguyen MD 04/15/2025 08:14:22
[2025-04-13 14:00] LABS: Hematocrit 44.9 % (42.0-52.0); Hemoglobin 15.0 g/dL (14.1-18.0); Immature Granulocytes % 0.3 %; Mean Corpuscular HGB Conc 33.4 g/dL (31.8-35.4); Mean Corpuscular Hemoglobin 29.0 pg (27.0-31.2); Mean Corpuscular Volume 86.8 fl (80-94); Nucleated Red Blood Cells % 0 %; Platelet Count 293 K/mm3 (142-424); Red Blood Count 5.17 M/mm3 (4.60-6.20); Red Cell Distribution Width-SD 41.1 fL; White Blood Count 8.8 K/mm3 (4.8-10.8)
[2025-04-13 14:02] LABS: Chloride 91 mmol/L (98-107); Sodium 126 mmol/L (136-145)
[2025-04-13 14:03] LABS: Potassium 4.3 mmoL/L (3.5-5.1)
[2025-04-13 14:06] LABS: Anion Gap 14.3 mEq/L (5-15); Blood Urea Nitrogen 5 mg/dl (9-20); Calcium 9.2 mg/dl (8.4-10.2); Carbon Dioxide 25 mmol/L (22.0-30.0); Creatinine Clearance Estimated 51 mL/min (50-200); Creatinine,Serum 0.40 mg/dl (0.66-1.25); Estimated Glomerular Filt Rate 215 ml/min (>60); GFR (African American) 260 ML/MIN (>60); Glucose 97 mg/dl (74-100)
== END 2025-04-13 23:59 | disposition home or self-care (01) ==
LOC: PREOP 13:20
PROVIDERS: PCP Nurse Practitioner Family; Visit Provider Internal Medicine Pulmonary Disease
DX: Z01.810 Encounter for preprocedural cardiovascular examination (principal); Z01.812 Encounter for preprocedural laboratory examination; R00.0 Tachycardia, unspecified; R94.31 Abnormal electrocardiogram [ECG] [EKG]
CPT/HCPCS: 80048; 85025; 93005

== ENCOUNTER 2025-04-18 09:54 | Day surgery (SDC) | payer MEDICARE, MEDICAID, SELFPAY ==
--- NOTE | 2025-04-14 13:11 | SUR.PREOP ---
Spoke w/ Tamiko Lyles on 04/13/25. Determined ok for pt to hold Eliquis and Plavix and restart after procedure. Pt notified and verbalized understanding.
[2025-04-14 13:15] VITALS: BMI 17.0
[2025-04-18] VITALS (10 sets, daily range): BP systolic 91–137; BP diastolic 66–90; PULSE 94–106; RESP 16–19; TEMP 36.1–36.6; O2SAT 90–95
[2025-04-18] MEDS: LACTATED RINGERS 1000ML 1,000 ML 25 ML IV (10:58)
--- NOTE | 2025-04-18 11:02 | P.PNANES_ITS ---
[facility] Disclaimer: The information contained in this section may have been updated after the patient was seen, as this information can be updated by other users. Medical History Mediastinal lymphadenopathy Dyspnea on exertion Smoking greater than 30 pack years Colonic mass Multiple lung nodules on CT Amputated right leg Hyperlipidemia Surgical History History of arterial bypass of lower limb History of right below knee amputation Family History Father Alcoholism Mother Cancer Alzheimer's dementia Social History Smoking Status: Current every day smoker years smoked: 40 alcohol intake: former substance use type: denies use current occupational status: disabled Travel in the last 8 weeks?: None [facility] Anesthesia Checklist Patient Identification Patient Identification: Arm Band and Verbal (Name & ) Structural Data Admitted From: Home Planned Operative Procedure/s: bronchoscopy Verified Documents: Surgical Consent NPO Status Verified Time NPO: 00:00 Chart Verification Results Verified: ECG Additional verifications Anesthesia Reactions: No Hx Blood Transfusions: Yes Blood Transfusion Reaction: No Airway Assessment Mallampati Score:: Class II C-Spine Mobility Assessed: Yes TMJ Mobility Assessed: Yes Dentition: Poor Dentition (2 teeth on the bottom, not loose) Neurological Assessment Level of Consciousness: Awake, Alert and Appropriate Hx Seizures: No Numbness or tingling in extremities: No Anesthesia Plan Anesthesia Risk discussed: Yes Anesthesia Plan: Verified ASA Class: III Anesthesia Type: General
[2025-04-18 11:17] LABS: Anion Gap 17.1 mEq/L (5-15); Blood Urea Nitrogen 7 mg/dl (9-20); Calcium 9.4 mg/dl (8.4-10.2); Carbon Dioxide 23 mmol/L (22.0-30.0); Chloride 95 mmol/L (98-107); Creatinine Clearance Estimated 51 mL/min (50-200); Creatinine,Serum 0.40 mg/dl (0.66-1.25); Estimated Glomerular Filt Rate 215 ml/min (>60); GFR (African American) 260 ML/MIN (>60); Glucose 90 mg/dl (74-100); Potassium 4.1 mmoL/L (3.5-5.1); Sodium 131 mmol/L (136-145)
--- NOTE | 2025-04-18 12:56 | XR_ITS ---
FINAL REPORT CLINICAL HISTORY: BRONCH 0.7 lukasz 6.36 mGy FINDINGS: FLUOROSCOPY LESS THAN 1 HOUR HISTORY: Fluoroscopy guidance. FINDINGS: Fluoroscopic guidance was provided for bronchoscopy. A single spot film was obtained. A total of 0.7 minutes of fluoroscopy time were used. DAP: 6.36 mGy IMPRESSION: As above. Reviewed, Interpreted and Dictated by Adam Richardson MD Transcribed by Preethi Bowers Authenticated and [facility]
--- NOTE | 2025-04-18 12:59 | EXP.ANES.I ---
[facility] Anesthesia Record Part I Anesthesia Record I Intake, IV Amount: 500 Hydration: Adequate Estimated blood loss (mL): 0 Urine output (mL): 0 Blood Products used (#): none Blood Pressure: 137/82 SaO2: 92 Pulse Rate: 97 Airway Patency: Patent Respiratory Rate: 18 Temperature: 97.0 F Patient is:: Awake and Stable Stable to PACU at:: 12:57
--- NOTE | 2025-04-18 13:26 | XR_ITS ---
FINAL REPORT CLINICAL HISTORY: POST bronchoscopy COMPARISON: None FINDINGS: The heart size is normal. The mediastinum is normal. There are extensive dense nodular opacities throughout both lungs concerning for multiple masses. There are no pleural effusions. There is no definite pneumothorax. There is no osseous abnormality. IMPRESSION: No definite pneumothorax post bronchoscopy. Extensive dense nodular opacities concerning for multiple masses. Reviewed, Interpreted and Dictated by Adam Richardson MD Transcribed by Preethi Bowers Authenticated and . [facility]
--- NOTE | 2025-04-18 13:27 | P.PCN_ITS ---
Procedure: Date: 04/18/25 Patient Date of :: 1960 Procedure Performed:: Bronchoscopy airway examination bronchoalveolar lavage, transbronchial lung biopsy, endobronchial lung biopsy, endobronchial ultrasound-guided fine-needle aspiration of lymph node Indications:: Multiple lung nodules and lymphadenopathy Performing Provider:: Maddison Pena MD Referring Provider:: Dr: Jarett Nguyen MD Sedation:: General anesthesia Procedure:: Bronchoscopy airway examination bronchoalveolar lavage, transbronchial lung biopsy, endobronchial lung biopsy, endobronchial ultrasound-guided fine-needle aspiration of lymph node: A clean EBUS bronchoscopy was advanced the ET tube and lymph node surveillance was performed. Patient noted a lymphadenopathy at station 7, confluence of lymphadenopathy and mass at station 10L, lymphadenopathy at station 10R and 4R. EBUS FNA was performed lymph node station 7, 10L and 10R. Total of 5 passes were performed at each lymph node station and the resultant sample was sent in CytoLyt for cytopathologic. EBUS bronchoscopy was retracted and A clean DIAGNOSTIC bronchoscopy was advanced through the ET tube and airways were examined up to subsegmental bronchi. Large endobronchial lesion with near complete occlusion of the left lower lobe bronchi noted. Rest of the airways appeared grossly normal, no evidence of mucoid secretions, mucous plugging active bleeding/old blood clots noted. Bronchoalveolar lavage was performed in the LEFT LOWER LOBE with instillation of 60 cc normal saline with return of 20 cc back. BAL fluid was sent for cell coun t and differential along with bacterial fungal and AFB stain and cultures. Endobronchial biopsy performed at the noted LEFT LOWER LOBE endobronchial lesion. Total of 5 biopsies were performed and sent in formalin for cytopathologic examination Transbronchial biopsy was performed in the LEFT LOWER LOBEwith a total of 3 biopsies performed and were sent in formalin for cytopathologic examination. Patient tolerated the procedure with no immediate acute complications. We will follow the patient in pulmonary clinic in 7 to 10 days. Findings:: Please see the procedure note Recommendations:: Postoperative bronchoscopy instructions. Follow in pulmonary clinic in 5 to 7 days Complications:: No acute immediate complication Estimated blood obtained (mL): 10
--- NOTE | 2025-04-19 10:01 | EXP.ANES.II ---
[facility] Anesthesia Record Part II Anesthesia Record Part II Discharge Time: 13:27 Destination: Surgical Day Care (OP Surgery) PACU nurse assessment reviewed?: Yes Patient Condition:: Good Anesthesia Complications:: None Swallowing reflex intact?: Yes Airway Patency: Patent Cyanosis?: No Blood Pressure: 114/80 SaO2: 92 Respiratory Rate: 18 Pulse Rate: 96 Temperature: 97 F Mental Status: Alert & Oriented Pain level:: 0 Nausea and/or vomitting:: None Intake, IV Amount: 0 Hydration: Adequate
[2025-04-19 10:02] VITALS: BP 114/80; PULSE 96; RESP 18; TEMP 36.1; O2SAT 92
== END 2025-04-18 14:00 | disposition home or self-care (01) ==
PROVIDERS: Visit Provider Internal Medicine Pulmonary Disease
PROC: BB4BZZZ Ultrasonography of Pleura (ICD-10-PCS; CPT 31624; principal; 2025-04-18 11:15)
DX: C34.32 Malignant neoplasm of lower lobe, left bronchus or lung (principal); C77.1 Secondary and unspecified malignant neoplasm of intrathoracic lymph nodes; F17.210 Nicotine dependence, cigarettes, uncomplicated; E78.5 Hyperlipidemia, unspecified; K63.89 Other specified diseases of intestine; Z79.01 Long term (current) use of anticoagulants; Z79.02 Long term (current) use of antithrombotics/antiplatelets; Z79.899 Other long term (current) drug therapy
CPT/HCPCS: 31624; 31625; 31628; 31653; 36415; 71045; 76000; 80048; 87070; 87101; 87116; 87186; 87205; 88112; 88173; 88305; 88341; 88342; 88360; 89051; J1100; J2003; J2371; J2405; J2704; J3010; J7120

== ENCOUNTER 2025-04-21 12:10 | Outpatient (CLI) | payer MEDICARE, SELFPAY ==
--- OUTSIDE RECORDS SUMMARY | 2025-04-12 10:20 | XMS_ITS | Encounter Summary ---
Author Organization [employer] ([place], [place], [place], [place]) Address [address] [place] [address] Care Team Providers Care Skein Yarn Dyer Helper Name Role Phone Unavailable Primary Care Provider Unavailabl e Reason for Referral * CAT Scan (Routine) - Pending Review Specialty Diagnoses / Procedures Referred By Contac t Referred To Contact Radiology Diagnoses Lung nodule Procedures PET/CT Skull Base-Mid Thigh (Whole Body) Maddison Pena MD [facility] [place] [employer] [address] [place] [address] Phone: tel: fax: Referral ID Status Reason Start Date Expiration Date V isits Requested Visits Authorized [id number] Pending Review 04/08/2025 04/08/2026 1 1 Reason for Visit * CAT Scan (Routine) - Pending Review Specialty Diagnoses / Procedures Referred By Contac t Referred To Contact Radiology Diagnoses Lung nodule Procedures PET/CT Skull Base-Mid Thigh (Whole Body) Maddison Pena MD [facility] [address] [place] [address] Phone: tel: fax: Referral ID Status Reason Start Date Expiration Date V isits Requested Visits Authorized [id number] Pending Review 04/08/2025 04/08/2026 1 1 Encounter Details Date Type Department Care Team (Latest Contact Info) Description 04/12/2025 10:20 AM EDT - 04/12/2025 11:59 PM EDT Hospital Encounter [facility] PET CT - [address] [employer] [address] [address] [address] Maddison Pena MD [address] [place] [...] Date Yuriy rded Speak language other than Bulgarian at home Not on file 10/23/2023 Want [...]
--- OUTSIDE RECORDS SUMMARY | 2025-04-21 12:13 | XMS_ITS | Clinical Summary ---
Author Organization [facility] Address [address] [facility] [address] [place] [address] Phone Care Team Providers Care Stockbroker Name Role Phone En Raines MD [facility] [phone] Conditions or Problems No information available. Medications No information available. Medications Administered No information available. Allergies, Adverse Reactions, Alerts No information available. Results No information available. Plan of Care No information available. Procedures No information available. Vital Signs No information available. Immunizations No information available. Advance Directives No information available.
--- OUTSIDE RECORDS SUMMARY | 2025-04-21 12:13 | XMS_ITS | Clinical Summary ---
Author Organization [facility] Address [address] [place] [address] Care Team Providers Care Crabber Name Role Phone Unavailable Primary Care Provider [...] 2008 UKY-Zoster Vaccines (1 of 2) 2008 [id number] Vaccine (1 - 20 24-25 season) 2024 UKY-Influenza Vaccine (#1) 2025 UKY-RSV Vaccine: 60+ Years o r [...]
--- OUTSIDE RECORDS SUMMARY | 2025-04-21 12:13 | XMS_ITS | Referral Summary ---
Author Organization [employer] ([place], [place], [place], [place]) Address [address] [place] [address] Care Team Providers Care Shoulder Joiner Name Role Phone Unavailable Primary Care Provider Unavailabl e Encounters Date Type Department Care Team Description 04/12/2025 10:20 AM EDT - 04/12/2025 11:59 PM EDT Hospital Encounter [facility] PET CT - [address] [place] [address] Maddison Pena MD Lung nodule [...] Date Yuriy rded Speak language other than Faroese at home Not on file 10/23/2023 Want [...] on file Medical Devices Implanted Type Area Contract Coordinator Device Identifier Shelf Expiration Date Model / Serial / Lot Grft Eptfe-Heparin Rng [id number] - [id number] Implanted:Qty : 1 on 07/18/2022 by Roly Savage at [facility] IMPLANTS N/A: Aleks NEGROE & ASSC:MED PRDT 09/17/2025 [id number] / [id number] 19 / Stnt Vbx Blln Endo [id number] - [id number] Implanted:Qty : 1 on 07/18/2022 by Roly Savage at [facility] IMPLANTS N/A: Groin WL GORE & ASSC:MED PRDT 01/16/2025 [id number] / [id number] / Cath [id number] - [id number] Implanted:Qty : 1 on 07/18/2022 by Roly Savage at [facility] IMPLANTS N/A: Groin WL GORE & ASSC:MED PRDT 05/11/2023 [id number] / [id number] / Procedures Procedure Name Priority Date/Time Associated [...] Ryan Crowley. Transcribed by Parish Looney PA-C. us Maddison Pena MD IMG CT ORDERABLES Final Resul t from Last 3 Months Insurance [facility] MEDICAID [place] OPT[place]
--- OUTSIDE RECORDS SUMMARY | 2025-04-21 12:13 | XMS_ITS | Clinical Summary ---
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 Name Role Phone Unavailable Primary Care Provider Unavailabl e Allergies No known active allergies Encounters Date Type Department Care Team Description 04/12/2025 10:20 AM EDT - 04/12/2025 11:59 PM EDT Hospital Encounter [facility] PET CT - [address] [place] [address] Maddison Pena MD Lung nodule [...] Date Yuriy rded Speak language other than Setswana at home Not on file 10/23/2023 Want [...] Screening (12+) 12/21 Hepatitis C Screening 1976 Shingles Vaccine (Zoster) (1 of 2) 2008 Pneumococcal 50+ years (2 of 2 - PCV) 09/29/2016 Respiratory Syncytial Virus (RSV) Adult or (1 - Risk 60-74 years 1-dose series) 2018 COVID-19 VACCINE (1 - 2023- season) 2024 DTAP/TDAP/TD VACCINES (2 - Td or Tdap) 09/06/2024 Falls Risk Screening 10/13/2024 Influenza Vaccine (#1) 2025 Medical Devices Implanted Type Area Inventory Checker Device Identifier Shelf Expiration Date Model / Serial / Lot Gr Eptfe-Heparin Rng [id number] - [id number] Implanted:Qty : 1 on 07/18/2022 by Roly Savage at [facility] IMPLANTS N/A: Aleks NEGROE & ASSC:MED PRDT 09/17/2025 [id number] / [id number] 19 / Stnt Vbx Blln Endo [id number] - [id number] Implanted:Qty : 1 on 07/18/2022 by Roly Savage at [facility] IMPLANTS N/A: Aleks NEGROE & ASSC:MED PRDT 01/16/2025 [id number] / [id number] / Cath [id number] - [id number] Implanted:Qty : 1 on 07/18/2022 by Roly Savage at [facility] IMPLANTS N/A: Aleks NEGROE & ASSC:MED PRDT 05/11/2023 [id number] / [id number] / Procedures Procedure Name Priority Date/Time Associated [...] Resul t from Last 3 Months Insurance [facility] MEDICAID [facility] OPTUM
--- NOTE | 2025-04-21 12:18 | PC.NURSE ---
1218-diya man rn collected labs via venipuncture stick in right ac with butterfly needle; pt d/c home
[2025-04-21 12:32] LABS: Albumin Level 4.4 g/dl (3.5-5.0); Chloride 93 mmol/L (98-107); Sodium 129 mmol/L (136-145)
[2025-04-21 12:33] LABS: Potassium 4.2 mmoL/L (3.5-5.1)
[2025-04-21 12:35] LABS: Alanine Aminotransferase 32 U/L (12-78); Anion Gap 14.2 mEq/L (5-15); Aspartate Amino Transferase 32 U/L (17-59); Blood Urea Nitrogen 6 mg/dl (9-20); Carbon Dioxide 26 mmol/L (22.0-30.0); Creatinine,Serum 0.40 mg/dl (0.66-1.25); Estimated Glomerular Filt Rate 215 ml/min (>60); GFR (African American) 260 ML/MIN (>60)
[2025-04-21 12:36] LABS: Albumin/Globulin Ratio 1.5 (1.1-1.8); Alkaline Phosphatase 166 U/L (38-126); Bilirubin,Total 0.5 mg/dl (0.2-1.3); Calcium 9.5 mg/dl (8.4-10.2); Globulin 2.9 g/dL (1.3-3.2); Glucose 107 mg/dl (74-100); Total Protein,Serum 7.3 g/dl (6.3-8.2)
== END 2025-04-21 12:25 | disposition home or self-care (01) ==
LOC: INF 12:11
PROVIDERS: PCP Nurse Practitioner Family; Visit Provider Internal Medicine Medical Oncology
DX: R59.0 Localized enlarged lymph nodes (principal)
CPT/HCPCS: 36415; 80053

== ENCOUNTER 2025-05-05 16:12 | Inpatient (IN) | payer MEDICARE, MEDICAID, SELFPAY ==
--- OUTSIDE RECORDS SUMMARY | 2024-09-27 08:14 | XMS_ITS | Continuity of Care Document ---
Author Name [facility] Organization [facility] Care Team Providers Care Pouncing Lathe Operator Name Role Phone [facility] Unavailable Unavailable Problems Combined list of problems from Department of Defense and [facility] facilities. It does not include entries that were removed or entered in error. Problem Status Onset Date Problem Type Date of Resolution Comments Source Chronic alcoholism in remission Active Condition Jul 09, 2022 Entered By: NAKIA MARY Comment: quit 1990 [facility] Degeneration of lumbar intervertebral disc Active Condition Jul 09, 2022 Entered By: NAKIA MARY Comment: 2008: L4/5 microdiscectomy [facility] Elevated liver enzymes level Active Condition [facility] Family history of disorder Active Condition Jul 10, 2022 Entered By: NAKIA MARY Comment: Mother living diagnosed with breast ca in her 60s [facility] Hypercholesterolemia Active Condition L [facility] Peripheral neuropathy Active Condition [facility] PVD-peripheral vascular disease Active Condition Jul 09 Entered By: NAKIA MARY Comment: 2016: gangrene R great toeSep 2021 Entered By: NAKIA MARY Comment: 2017: R femoral endarterectomy w/ SFA stent; complicated by MSSA infectionS2021 Entered By: NAKIA MARY Comment: 2019: RLE ischemia; s/p angioplasty and fasciotomy for compartment synd [facility] Tobacco abuse [facility] Gastroesophageal reflux disease Inactive Condition 07/09/2022 [facility] Osteoarthritis Inactive Condition 07/09/2022 [facility] Polyp of colon Inactive Condition 08/26/2016 Mar 19, 2016 Entered By: GURPREET ORTIZ Comment: repeat c-scope 5-10 yrs.(2020-2026)hyperp lastic polyp [facility] Vascular graft infection Inactive Condition 07/09/2022 [facility] Medications Combined list of outpatient medications from [facility] and [facility] facilities.Medications provided include 1) outpatient medications from the last 15 months, and 2) patient-reported medications. Medication Details Route Status Patient Instructions Prescription Expires Prescription Number Last Dispense Date Ordering Provider Order Date Order Qty Source NO KNOWN NON-VA MEDS NOT APPLIC ABLE ACTIVE THEODORA MCMILLAN Yahir 2015 [place] [facility] Allergies, Adverse Reactions, Alerts Combined list of allergies from [facility] and [facility] facilities. It does not include entries that were removed or entered in error. Substance Category Reaction Severity Reaction type Status Date Reported Comments Source PRAVASTATIN Propensity to adverse reactions to drug (finding) Muscle pain MODERATE active 2 [facility] Immunizations Combined list of available immunizations from the Department of [facility] and [facility] facilities. Immunization Series Date Given Administered By Site Reaction Lot Number CVX Code Drug Reading Professor Status Comments Source INFLUENZA, INJECTABLE, QUADRIVALENT, PRESERVATIVE FREE 2018 150 complet ed [place] INFLUENZA A & B (HISTORICAL) 2016 88 complet ed [place] FLU,3 YRS (HISTORICAL) 2015 88 complet ed [place] [facility] FLU,3 YRS (HISTORICAL) 2014 88 complet ed [place] [facility] [id number] (HISTORICAL) 2014 33 complet ed [place] [facility] PNEUMOCOCCAL, UNSPECIFIED FORMULATION 2014 109 complet ed [place] [facility] 2013 01 complet ed [place] [facility] FLU,3 YRS (HISTORICAL) 2013 88 complet ed [place] [facility] TDAP 2013 115 complet ed [place] [facility] FLU,3 YRS (HISTORICAL) 2010 88 complet ed [place] [facility] INFLUENZA A & B (HISTORICAL) 2008 88 complet ed [place] TD(ADULT) UNSPECIFIED FORMULATION 2008 NONE 139 complet ed Completed Series, [place] TETANUS TOXOID, UNSPECIFIED FORMULATION 2008 KAVITHA RAMOS 112 complet ed [facility] Encounters Combined list of: 1) Encounters from Department of Veterans Affairs facilities going backup to the last 18 months, not all [place] inpatient encounters are included; 2) Encounters from the Department of [facility] facilities going backup to 280 months. Location Location Details Encounter Type Encounter Number Reason For Visit Attending Provider ADM Date DC Date Status Disposition Source [facility] Outpatient Encounter [id number] 09/27 [facility] Outpatient Encounter [id number] 09/27 [facility] Social History Combined list of available smoking, tobacco, and other social history from [facility] of [facility] and [facility] facilities. Social History Type Response Date Comment Sourc e Tobacco [facility] OF WA[facility]UP 07/10/2022 [facility] of [facility] INTEGRITY ASSESSOR NO 10/11/2019 [facility] History of tobacco use DENIED MEDS TOBACCO USE INPATIENT 01/31/2019 [facility] History of tobacco use V9 CURRENT TOBACCO USER 05/01/2018 [facility] History of tobacco use HEAVY TOBACCO USE INPATIENT 01/14/2017 [facility] History of tobacco use HEAVY TOBACCO USE INPATIENT 11/14/2016 [facility] History of tobacco use HEAVY TOBACCO USE INPATIENT 10/25/2016 [facility] History of tobacco use HEAVY TOBACCO USE INPATIENT 09/24/2016 [facility] History of tobacco use V9 CURRENT TOBACCO USER 08/26/2016 [facility] History of tobacco use V9 CURRENT TOBACCO USER 09/29/2015 [facility] History of tobacco use V9 CURRENT TOBACCO USER 09/06/2014 [facility] History of tobacco use V9 CURRENT TOBACCO USER 07/22/2012 [facility] History of tobacco use V9 CURRENT TOBACCO USER 06/28/2011 [facility] of tobacco use V9 CURRENT TOBACCO USER 07/07/2009 [facility] History of tobacco use V9 CURRENT TOBACCO USER 05/06/2009 [facility]
--- OUTSIDE RECORDS SUMMARY | 2025-04-12 10:20 | XMS_ITS | Encounter Summary ---
Author Organization [employer] ([place], [place], [place], [place]) Address [address] [place] [address] Care Team Providers Care Plate Grinder Name Role Phone Unavailable Primary Care Provider Unavailabl e Reason for Referral * CAT Scan (Routine) - Pending Review Specialty Diagnoses / Procedures Referred By Contac t Referred To Contact Radiology Diagnoses Lung nodule Procedures PET/CT Skull Base-Mid Thigh (Whole Body) Maddison Pena MD [facility] [place] [employer] [address] [place] [address] Phone: tel: fax: Referral ID Status Reason Start Date Expiration Date V isits Requested Visits Authorized [id number] Pending Review 04/08/2025 04/08/2026 1 1 Reason for Visit * CAT Scan (Routine) - Pending Review Specialty Diagnoses / Procedures Referred By Contac t Referred To Contact Radiology Diagnoses Lung nodule Procedures PET/CT Skull Base-Mid Thigh (Whole Body) Maddison Pena MD [facility] [address] [place] [address] Phone: tel: fax: Referral ID Status Reason Start Date Expiration Date V isits Requested Visits Authorized [id number] Pending Review 04/08/2025 04/08/2026 1 1 Encounter Details Date Type Department Care Team (Latest Contact Info) Description 04/12/2025 10:20 AM EDT - 04/12/2025 11:59 PM EDT Hospital Encounter [facility] PET CT - [address] [employer] [address] [address] Maddison Pena MD [address] [place] [address] [address] Lung nodule Discharge Disposition: Home or Self Care Social History Tobacco Use Types Packs/Day Years Used Date Smoking Tobacco: Never Assessed Family and Community Support Answer Dimitris e Recorded Help with Day to Day Activities Not on file 10/23/2023 Feeling Lonely or Isolated Not on file 10/23 Educational Attainment Answer Date Yuriy rded Speak language other than [place] Islander at home Not on file 10/23/2023 Want help with school or training Not on file 10/23/2023 Substance Use Answer Date Recorded Used prescription meds for non-medical reasons N ot on file 10/23/2023 Used illegal drugs past 12 months Not on file 10/23/2023 Sex and Gender Information Value Date Recorded Sex Assigned at Not on file Legal Sex Male 4:23 PM CDT Gender Identity Not on file Sexual Orientation Not on file documented as of this encounter Plan of Treatment Not on file documented as of this encounter Procedures Procedure Name Priority Date/Time Associated Diagnosis Comments P.E.T./CT SKULL BASE TO MID-THIGH Routine 04/12/2025 12:49 PM EDT Lung nodule documented in this encounter Results * PET/CT Skull Base-Mid Thigh (Whole Body) (04/12/2025 12:49 PM EDT) Anatomical Region Laterality Modality Positron Emissio n Tomography (PET) 04/12/2025 2:59 PM EDT Impressions 04/12/2025 3:39 PM EDT Innumerable pulmonary nodules and more discrete hypermetabolic mass in left infrahilar region. Consider bronchoscopy if a primary diagnosis has not been obtained. Images reviewed, interpreted, and dictated by Dr. Ryan Crowley. Transcribed by Parish Looney PA-C. Narrative 04/12/2025 3:39 PM EDT PROCEDURE: PET/CT IMAGING, SKULL BASE TO MID THIGH INDICATION: Pulmonary nodule, restaging. TECHNIQUE: 15.4 mCi of 18-FDG was injected intravenously with a fasting blood glucose of 93 mg/dl. PET/CT images were obtained from skull base to mid thigh. COMPARISON: CT from 09/20/2022 and more recent outside CT report. FINDINGS: There is no FDG avid cervical lymphadenopathy. There are innumerable lung nodules measuring up to 15 mm and 5 SUV. There is a more discrete, 35 mm left infrahilar mass with a maximum SUV of 17. The liver, spleen, renal collecting systems, and bladder demonstrate expected FDG uptake. There is no suprarenal hypermetabolism to suggest adrenal metastasis. GI uptake is normal. There is no hypermetabolic abdominal or pelvic lymphadenopathy. A femorofemoral bypass graft is noted in the pelvis. No hypermetabolic bone lesions are identified. The patient is status post right femoral amputation. Procedure Note Gerson Crowley MD - 04/12/2025 PROCEDURE: PET/CT IMAGING, SKULL BASE TO MID THIGH INDICATION: Pulmonary nodule, restaging. TECHNIQUE: 15.4 mCi of 18-FDG was injected intravenously with a fasting blood glucose of 93 mg/dl. PET/CT images were obtained from skull base to mid thigh. COMPARISON: CT from 09/20/2022 and more recent outside CT report. FINDINGS: There is no FDG avid cervical lymphadenopathy. There are innumerable lung nodules measuring up to 15 mm and 5 SUV. There is a more discrete, 35 mm left infrahilar mass with a maximum SUV of 17. The liver, spleen, renal collecting systems, and bladder demonstrate expected FDG uptake. There is no suprarenal hypermetabolism to suggest adrenal metastasis. GI uptake is normal. There is no hypermetabolic abdominal or pelvic lymphadenopathy. A femorofemoral bypass graft is noted in the pelvis. No hypermetabolic bone lesions are identified. The patient is status post right femoral amputation. IMPRESSION: Innumerable pulmonary nodules and more discrete hypermetabolic mass in left infrahilar region. Consider bronchoscopy if a primary diagnosis has not been obtained. Images reviewed, interpreted, and dictated by Dr. Ryan Crowley. Transcribed by Parish Looney PA-C. Maddison Pena MD IMG CT ORDERABLES Final Resul t documented in this encounter Visit Diagnoses Diagnosis Lung nodule Other diseases of lung, not elsewhere classified documented in this encounter
[2025-05-03 09:58] VITALS: BMI 17.0
[2025-05-05] VITALS (45 sets, daily range): BP systolic 62–126; BP diastolic 34–87; PULSE 69–125; RESP 13–115; TEMP 36.1–36.4; O2SAT 86–100; BMI 16.7
[2025-05-05] MEDS: LACTATED RINGERS 1000ML 1,000 ML 50 ML IV (13:54)
--- NOTE | 2025-05-05 13:55 | P.PNANES_ITS ---
[facility] Disclaimer: The information contained in this section may have been updated after the patient was seen, as this information can be updated by other users. Medical History Mediastinal lymphadenopathy Dyspnea on exertion Smoking greater than 30 pack years Colonic mass Multiple lung nodules on CT Amputated right leg Hyperlipidemia Surgical History History of arterial bypass of lower limb History of right below knee amputation Family History Father Alcoholism Mother Cancer Breast Alzheimer's dementia Social History Smoking Status: Former smoker years smoked: 40 alcohol intake: former substance use type: denies use current occupational status: disabled Travel in the last 8 weeks?: None Have you lived/traveled outside US in past 30 days?: No Contact w/someone who lives/traveled outside US past 30 days?: No Exposure to someone with infectious disease in past 14 days?: No Do you have a fever (greater than 100.4 F or 38 C)?: No Have you tested positive for COVID-19?: No Exposed to someone with COVID-19 in past 14 days?: No Do you have a sore throat?: No Do you have a cough?: No Do you have any weakness?: No Do you have any diarrhea?: No Are you experiencing any unusual bleeding?: No Do you have any muscle aches/pain?: No Do you have any abdominal pain?: No Are you experiencing loss of taste or smell?: No [facility] Anesthesia Checklist Patient Identification Patient Identification: Arm Band Structural Data Admitted From: Home Planned Operative Procedure/s: Colonoscopy Consent for Planned Operative Procedure(s) Verified: Yes Verified Documents: Surgical Consent and History and Physical NPO Status Verified Time NPO: 00:00 Additional verifications Anesthesia Reactions: No Hx Blood Transfusions: Yes Blood Transfusion Reaction: No Airway Assessment Mallampati Score:: Class II C-Spine Mobility Assessed: Yes TMJ Mobility Assessed: Yes Dentition: Poor Dentition Neurological Assessment Level of Consciousness: Awake, Alert and Appropriate Anesthesia Plan Anesthesia Risk discussed: Yes Anesthesia Plan: Verified ASA Class: III Anesthesia Type: MAC
--- NOTE | 2025-05-05 14:01 | EXP.HP ---
History of Present Illness *Admission Date: 05/05/25 *History of present illness: Mr. Gipson is a 64-year-old gentleman who is here for diagnostic colonoscopy. 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 Her CEA was elevated at 458. Her CAT scan has shown compression on the left side of the bowel with fluid-filled large and small bowel concerning for ileus versus colonic obstruction at the splenic flexure. She had developed constipation about 2 years ago which has gradually worsened. She does get intermittent abdominal discomfort. She has had a 35 pound weight loss over the last 6 months. Her last colonoscopy was many years ago. The examination is deemed medically necessary for diagnostic colonoscopy. The patient has been seen, interviewed and examined prior to the procedure by both myself and the anesthesia provider. [facility] Disclaimer: The information contained in this section may have been updated after the patient was seen, as this information can be updated by other users. Medical History Mediastinal lymphadenopathy Dyspnea on exertion Smoking greater than 30 pack years Colonic mass Multiple lung nodules on CT Amputated right leg Hyperlipidemia Surgical History History of arterial bypass of lower limb History of right below knee amputation Family History Father Alcoholism Mother Cancer Breast Alzheimer's dementia Social History Smoking Status: Former smoker years smoked: 40 alcohol intake: former substance use type: denies use current occupational status: disabled Travel in the last 8 weeks?: None Have you lived/traveled outside US in past 30 days?: No Contact w/someone who lives/traveled outside US past 30 days?: No Exposure to someone with infectious disease in past 14 days?: No Do you have a fever (greater than 100.4 F or 38 C)?: No Have you tested positive for COVID-19?: No Exposed to someone with COVID-19 in past 14 days?: No Do you have a sore throat?: No Do you have a cough?: No Do you have any weakness?: No Do you have any diarrhea?: No Are you experiencing any unusual bleeding?: No Do you have any muscle aches/pain?: No Do you have any abdominal pain?: No Are you experiencing loss of taste or smell?: No Other Medical History Have you received the Flu Vaccine for this season: No Have you received the Pneumonia Vaccine: Yes Review of Systems Review of Systems Review of systems (narrative): Negative *Cardiovascular Comments: Negative *Gastrointestinal Comments: Negative *Genitourinary Comments: Negative *Musculoskeletal Comments: Negative *Neurologic Comments: Negative Meds Home Medications and Allergies Home Medications ?Medication ?Instructions ?Recorded ?Confirmed ?Type atorvastatin 80 mg tablet 80 mg PO DAILY Cholesterol 07/14/22 05/05/25 History albuterol sulfate 90 mcg/actuation 2 puff inhalation DAILY 04/07/25 05/05/25 History aerosol inhaler apixaban 5 mg tablet (Eliquis) 5 mg PO BID 04/07/25 05/05/25 History clopidogrel 75 mg tablet 75 mg PO DAILY 04/07/25 05/05/25 History diltiazem HCl 180 mg 180 mg PO DAILY 04/07/25 05/05/25 History capsule,extended release 24 hr ipratropium 0.5 mg-albuterol 3 mg 3 ml inhalation DAILY 04/07/25 05/05/25 History (2.5 mg base)/3 mL nebulization soln nicotine 14 mg/24 hr daily 1 patch transdermal DAILY #28 ea 04/07/25 05/05/25 Rx transdermal patch diazepam 5 mg tablet 5 mg PO BID 04/21/25 05/05/25 History tiotropium 2.5 mcg-olodaterol 2.5 2 puff inhalation DAILY 04/21/25 05/05/25 History mcg/actuation mist for inhalation (Stiolto Respimat) magnesium hydroxide 400 mg/5 mL 5 ml PO DAILY PRN Abdominal 04/26/25 05/05/25 History oral suspension (Dulcolax Discomfort (magnesium hydroxide)) sodium,potassium,mag sulfates 17.5 See Rx Instructions PO .COMPLEX 04/26/25 04/26/25 Rx gram-3.13 gram-1.6 gram oral soln #354 mL (Suprep Bowel Prep Kit) New Prescriptions to Start Prescriptions: Allergies Allergy/AdvReac Type Severity Reaction Status Date / Time No Known Allergies Allergy Verified 05/05/25 13:37 Exam Data for Last 24 hours Vital signs and Labs for Last 24 Hours: Temp Pulse Resp BP Pulse Ox O2 Del Method 97.1 F L 114 H 18 126/79 92 L Room Air 05/05/25 13:44 05/05/25 13:44 05/05/25 13:44 05/05/25 13:44 05/05/25 13:44 05/05/25 13:44 I & O for Last 24 hours: Intake & Output 05/02/25 05/03/25 05/04/25 05/05/25 23:59 23:59 23:59 23:59 Weight 109 lb *Routine HEENT Exam Head: Present normocephalic Eye: Present EOMI and PERRL ENT: Present mucous membranes moist *Routine Neck Exam Neck: Present supple *Routine Respiratory Exam Respiratory: Present CTA bilaterally *Routine Cardiovascular Exam Cardiovascular: Present RRR *Routine Abdominal Exam Abdominal: Present soft and normoactive bowel sounds; Absent tenderness *Routine Rectal Exam Rectal:: deferred *Routine Genitalia Exam Genitalia:: deferred *Routine Extremities Exam Extremities: Absent cyanosis, clubbing or edema *Routine Skin Exam Skin: Present warm; Absent rash *Routine Neurological Exam Neurological: Present alert and oriented X3 Assessment and Plan *Assessment and plan (1) Elevated CEA: Status: Acute Category: Medical Code(s): R97.0 - Elevated carcinoembryonic antigen [CEA] (2) Weight loss: Status: Acute Category: Medical Code(s): R63.4 - Abnormal weight loss (3) Metastatic cancer: Status: Acute Category: Medical Code(s): C79.9 - Secondary malignant neoplasm of unspecified site (4) Colonic mass: Status: Acute Category: Medical Code(s): K63.89 - Other specified diseases of intestine (5) Change in bowel habits: Status: Acute Category: Medical Code(s): R19.4 - Change in bowel habit Plan A/P: 1. Elevated CEA with a CAT scan showing possible obstruction at the splenic flexure is the preprocedural diagnosis. The patient does have widely metastatic cancer presumably secondary to lung cancer. He has had a change in bowel habits and weight loss. The patient will be anesthetized/sedated using MAC sedation. The patient has been seen and examined. Cardiac and lung assessment prior to the examination is stable. Proceed with planned diagnostic colonoscopy.
--- NOTE | 2025-05-05 14:04 | P.PCN_ITS ---
[facility] Procedure Note Date: 05/05/25 Time: 14:37 Procedure Note:: Colonoscopy Procedure Report: Colonoscopy with cold snare polypectomy Endoscopist: Nelson Cary II, MD Referring physician: Tomi Pena M.D./ALYCE Mast Date of Procedure: May 05, 2025 Equipment: Olympus [id number] adult colonoscope Sedation: MAC sedation Indication: Mr. Gipson is a 64-year-old gentleman who is here for diagnostic colonoscopy. The patient was referred by Dr. Tomi Pena M.D. because of an abnormal CAT scan that showed compression of the left side of the bowel with fluid-filled large and small bowel with possible obstruction at the splenic flexure. The patient did have a CEA level that was elevated at 458. 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 He did not have any liver metastasis. The patient has had moderate weight loss. He also has had some left upper abdominal discomfort and change in bowel habits with constipation. The constipation began a couple of years ago but has gradually worsened. He reports no bright red rectal bleeding or family history of colon cancer. His last colonoscopy was many years ago. Procedure: Prior to the procedure, a history and physical exam was performed, and patient's medications and allergies were reviewed. The risks, benefits and alternatives of the sedation and procedure were discussed with the patient. All questions were answered and informed consent was obtained. The patient was brought to the procedure room. Patient identification and proposed procedure were verified by the physician and the nurse. The patient was placed in a left lateral decubitus position and the scope was passed under direct vision. Throughout the procedure, the patient's blood pressure, pulse, and oxygen saturations were mo nitored continuously. The colonoscopy was accomplished without difficulty. The patient tolerated the procedure well. Findings: On digital rectal examination there was normal rectal tone. There were no external hemorrhoids. The colonoscope was introduced through the anal canal to the rectum and advanced to the splenic flexure. There appeared to be some partial twisting/torsion at the splenic flexure with partial volvulus. With some aided abdominal compression/pressure, the colonoscope was advanced through this area of torsion into the transverse colon and onto the cecum. The ileocecal valve and appendiceal orifice were identified. The scope was advanced a short distance into the ileum which appeared grossly normal. The scope was then withdrawn into the colon. The cecum and ascending colon were normal. There were 4 polyps (transverse x 2 (4 and 7 mm) and descending x 2 (4 and 5 mm)). These were all removed via cold snare polypectomy. The remaining transverse, descending, sigmoid and rectum were normal and there were no mass lesions. Upon retroflexion within the rectum there were grade 2 internal hemorrhoids. The preparation was excellent throughout with [place] Preparation Score of 9. The cecal time was 15 minutes. Impression: 1. Torsion/possible volvulus near splenic flexure 2. Diminutive colonic polyps x 4 3. Grade 2 internal hemorrhoids Plan: I have reviewed the CAT scan and given the torsion/possible volvulus at splenic flexure, I do feel that this is playing a role with his symptoms and CT findings. Splenic flexure volvulus is a rare form of large bowel obstruction and accounts for less than 3% of all colonic volvulus cases. This can be congenital or acquired and is often related to a redundant colon. However, with his comorbidities, metastatic cancer and clinical symptomatology, I do not feel that this is clinically significant enough to warrant surgical repair. I would recommend dietary measures (reduction of gas-forming foods) and treatment of his constipation (senna laxatives).
[2025-05-05] MEDS: LACTATED RINGERS 1000ML 1,000 ML 999 ML IV (15:13)
--- NOTE | 2025-05-05 15:48 | ECG_ITS ---
APPROVED REPORT Exam: Resting ECG HR:90 bpm ECG Measurements Heart Rate 90 AXES FL 134 P 67 QRSd 89 QRS 72 QT 351 T 68 QTc 398 Conclusion SINUS RHYTHM POSSIBLE LEFT ATRIAL ENLARGEMENT [-0.1mV P-WAVE IN V1/V2] BORDERLINE ECG UNCONFIRMED REPORT Electronically signed by : Jarett Nguyen MD 05/06/2025 07:55:04
--- NOTE | 2025-05-05 16:06 | XR_ITS ---
FINAL REPORT CLINICAL HISTORY: SOB COMPARISON: 04/18/2025 FINDINGS: A single frontal view of the chest was obtained. Extensive nodularity throughout both lungs appears more confluent from the previous exam suggesting further mild progression of pulmonary metastases. No obvious infiltrate seen, although this would be difficult to appreciate given the background of pulmonary lesions. No pneumothorax. No significant effusion seen. Mediastinum is unremarkable. Heart size is normal. IMPRESSION: Extensive pulmonary metastases appears mildly worse. No evidence of pneumothorax. Reviewed, Interpreted and Dictated by Tracy Overton MD Transcribed by Preethi Bowers Authenticated and . [facility]
[2025-05-05 16:21] LABS: POC Glucose,Bedside 89 (70-110)
[2025-05-05] MEDS: NOREPINEPHRINE BITARTRATE/D5W 8 MG/250 ML PLAST..BAG 15 MG IV (16:27)
--- NOTE | 2025-05-05 16:27 | PC.NURSE ---
called Dr. Barbosa and notifed him of persistent hypotension with a current BP of 62/35. MD gave emergent order for Levophd drip at this time
[2025-05-05 16:30] LABS: Hematocrit 26.6 % (42.0-52.0); Hemoglobin 8.9 g/dL (14.1-18.0); Immature Granulocytes % 1.0 %; Mean Corpuscular HGB Conc 33.5 g/dL (31.8-35.4); Mean Corpuscular Hemoglobin 30.3 pg (27.0-31.2); Mean Corpuscular Volume 90.5 fl (80-94); Nucleated Red Blood Cells % 0 %; Platelet Count 327 K/mm3 (142-424); Red Blood Count 2.94 M/mm3 (4.60-6.20); Red Cell Distribution Width-SD 45.4 fL; White Blood Count 19.8 K/mm3 (4.8-10.8)
--- NOTE | 2025-05-05 16:38 | EXP.HP ---
History of Present Illness *Admission Date: 05/05/25 *History of present illness: Mr. Gipson is a 64-year-old gentleman who is here for diagnostic colonoscopy. 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 Her CEA was elevated at 458. Her CAT scan has shown compression on the left side of the bowel with fluid-filled large and small bowel concerning for ileus versus colonic obstruction at the splenic flexure. She had developed constipation about 2 years ago which has gradually worsened. She does get intermittent abdominal discomfort. She has had a 35 pound weight loss over the last 6 months. Her last colonoscopy was many years ago. The examination is deemed medically necessary for diagnostic colonoscopy. The patient has been seen, interviewed and examined prior to the procedure by both myself and the anesthesia provider. [facility] Disclaimer: The information contained in this section may have been updated after the patient was seen, as this information can be updated by other users. Medical History Mediastinal lymphadenopathy Dyspnea on exertion Smoking greater than 30 pack years Colonic mass Multiple lung nodules on CT Amputated right leg Hyperlipidemia Surgical History History of arterial bypass of lower limb History of right below knee amputation Family History Father Alcoholism Mother Cancer Breast Alzheimer's dementia Social History Smoking Status: Former smoker years smoked: 40 alcohol intake: former substance use type: denies use current occupational status: disabled Travel in the last 8 weeks?: None Have you lived/traveled outside US in past 30 days?: No Contact w/someone who lives/traveled outside US past 30 days?: No Exposure to someone with infectious disease in past 14 days?: No Do you have a fever (greater than 100.4 F or 38 C)?: No Have you tested positive for COVID-19?: No Exposed to someone with COVID-19 in past 14 days?: No Do you have a sore throat?: No Do you have a cough?: No Do you have any weakness?: No Do you have any diarrhea?: No Are you experiencing any unusual bleeding?: No Do you have any muscle aches/pain?: No Do you have any abdominal pain?: No Are you experiencing loss of taste or smell?: No Other Medical History Have you received the Flu Vaccine for this season: No Have you received the Pneumonia Vaccine: Yes Review of Systems Review of Systems Review of systems:: pertinent systems reviewed and negative unless documented below Meds Home Medications and Allergies Home Medications ?Medication ?Instructions ?Recorded ?Confirmed ?Type atorvastatin 80 mg tablet 80 mg PO DAILY Cholesterol 07/14/22 05/05/25 History albuterol sulfate 90 mcg/actuation 2 puff inhalation DAILY 04/07/25 05/05/25 History aerosol inhaler apixaban 5 mg tablet (Eliquis) 5 mg PO BID 04/07/25 05/05/25 History clopidogrel 75 mg tablet 75 mg PO DAILY 04/07/25 05/05/25 History diltiazem HCl 180 mg 180 mg PO DAILY 04/07/25 05/05/25 History capsule,extended release 24 hr ipratropium 0.5 mg-albuterol 3 mg 3 ml inhalation DAILY 04/07/25 05/05/25 History (2.5 mg base)/3 mL nebulization soln nicotine 14 mg/24 hr daily 1 patch transdermal DAILY #28 ea 04/07/25 05/05/25 Rx transdermal patch diazepam 5 mg tablet 5 mg PO BID 04/21/25 05/05/25 History tiotropium 2.5 mcg-olodaterol 2.5 2 puff inhalation DAILY 04/21/25 05/05/25 History mcg/actuation mist for inhalation (Stiolto Respimat) magnesium hydroxide 400 mg/5 mL 5 ml PO DAILY PRN Abdominal 04/26/25 05/05/25 History oral suspension (Dulcolax Discomfort (magnesium hydroxide)) sodium,potassium,mag sulfates 17.5 See Rx Instructions PO .COMPLEX 04/26/25 04/26/25 Rx gram-3.13 gram-1.6 gram oral soln #354 mL (Suprep Bowel Prep Kit) New Prescriptions to Start Prescriptions: Allergies Allergy/AdvReac Type Severity Reaction Status Date / Time No Known Allergies Allergy Verified 05/05/25 13:37 Exam Data for Last 24 hours Vital signs and Labs for Last 24 Hours: Temp Pulse Resp BP Pulse Ox O2 Del Method O2 Flow Rate 97.0 F L 109 H 17 85/50 L 93 L Nasal Cannula 3 05/05/25 15:13 05/05/25 15:13 05/05/25 15:13 05/05/25 15:13 05/05/25 15:13 05/05/25 15:13 05/05/25 15:13 Laboratory Results - last 24 hr 05/05/25 15:54: POC Glucose 89 05/05/25 16:12: WBC 19.8 H, RBC 2.94 L, Hgb 8.9 L, Hct 26.6 L, MCV 90.5, MCH 30.3, MCHC 33.5, RDW 13.9, Plt Count 327, MPV 9.6, Neut % (Auto) 89.0 H, Lymph % (Auto) 3.9 L, [place] % (Auto) 5.6, Eos % (Auto) 0.2, Baso % (Auto) 0.3, Neut # (Auto) 17.7 H, Lymph # (Auto) 0.8, [place] # (Auto) 1.1 H, Eos # (Auto) 0.0, Baso # (Auto) 0.1 I & O for Last 24 hours: Intake & Output 05/02/25 05/03/25 05/04/25 05/05/25 23:59 23:59 23:59 23:59 Intake Total / Balance 2 / Weight 49.442 kg Constitutional Comments: appears cachectic *Routine HEENT Exam Head: Present normocephalic Eye: Present EOMI and PERRL ENT: Present mucous membranes moist *Routine Neck Exam Neck: Present supple; Absent lymphadenopathy *Routine Respiratory Exam Respiratory: Present CTA bilaterally *Routine Cardiovascular Exam Cardiovascular: Present RRR *Routine Abdominal Exam Abdominal: Present soft and normoactive bowel sounds; Absent tenderness *Routine Rectal Exam Rectal:: deferred *Routine Genitalia Exam Genitalia:: deferred *Routine Extremities Exam Extremities: Absent cyanosis, clubbing or edema *Routine Skin Exam Skin: Present warm; Absent rash *Routine Neurological Exam Neurological: Present alert and oriented X3 Assessment and Plan *Assessment and plan (1) Primary cancer of left lower lobe of lung: Status: Acute Category: Medical Code(s): C34.32 - Malignant neoplasm of lower lobe, left bronchus or lung (2) PAD (peripheral artery disease): Status: Acute Category: Medical Code(s): I73.9 - Peripheral vascular disease, unspecified (3) Amputated right leg: Status: Acute Category: Medical Code(s): S88.911A - Complete traumatic amputation of right lower leg, level unspecified, initial encounter (4) Hypotension: Status: Acute Category: Medical Code(s): I95.9 - Hypotension, unspecified (5) Shock: Status: Acute Category: Medical Code(s): R57.9 - Shock, unspecified Plan Patient is a 64-year-old male with past medical history of colonic mass, lung cancer, right leg amputation, hyperlipidemia who presents to the hospital for elective colonoscopy. Patient was admitted because postop patient had low BP and did not improve after 2 L of normal saline bolus. Patient was then called a rapid response, at time of my evaluation during rapid response patient was alert oriented to time place and person, patient denied feeling dizziness. Patient denied chest pain nausea vomiting diarrhea constipation dysuria fevers and chills. Patient was found to have polyps during the procedure. Assessment and plan Hypotension likely secondary to hypovolemia Patient is a status post 2 L normal saline bolus BP 71/54, started Levophed given patient has crackles on lung exam Check proBNP Check CBC, CMP Consult critical care Check blood cultures Check UA Lung cancer Metastasis to colon Status post colonoscopy Discussed with GI Patient likely had polyps which were removed Patient also did have obstruction at the splenic flexure which was likely due to the metastasis Chest x-ray did show extensive pulmonary metastasis Chronic medical conditions Hypertension Peripheral artery disease - Resume home Eliquis, atorvastatin, Plavix Hold antihypertensives DVT prophylaxis-Home Eliquis
[2025-05-05 16:40] LABS: Albumin Level 2.5 g/dl (3.5-5.0); Chloride 100 mmol/L (98-107); Potassium 4.1 mmoL/L (3.5-5.1); Sodium 130 mmol/L (136-145)
[2025-05-05 16:42] LABS: Alanine Aminotransferase 14 U/L (12-78); Alkaline Phosphatase 97 U/L (38-126); Aspartate Amino Transferase 24 U/L (17-59); Blood Urea Nitrogen 13 mg/dl (9-20); Creatinine Clearance Estimated 51 mL/min (50-200); Creatinine,Serum 0.60 mg/dl (0.66-1.25); Estimated Glomerular Filt Rate 135 ml/min (>60); GFR (African American) 163 ML/MIN (>60)
[2025-05-05 16:43] LABS: Albumin/Globulin Ratio 1.3 (1.1-1.8); Anion Gap 8.1 mEq/L (5-15); Bilirubin,Total < 0.1 mg/dl (0.2-1.3); Calcium 8.4 mg/dl (8.4-10.2); Carbon Dioxide 26 mmol/L (22.0-30.0); Creatine Kinase 26 U/L (55-170); Globulin 1.9 g/dL (1.3-3.2); Glucose 98 mg/dl (74-100); Total Protein,Serum 4.4 g/dl (6.3-8.2)
[2025-05-05 17:00] LABS: Troponin I < 0.01 ng/ml (0.00-0.034)
--- NOTE | 2025-05-05 17:00 | PC.NURSE ---
pt transferred to ICU via stretcher by DAMIR Mc and DAMIR Abreu
[2025-05-05 18:09] LABS: INR 1.08 (0.9-1.1); Prothrombin Time 11.9 seconds (10.1-12.5)
[2025-05-05 18:20] LABS: NT Pro Brain Natriuretic Pep. 57.3 pg/mL (0-125)
[2025-05-05 18:37] LABS: Troponin I 0.01 ng/ml (0.00-0.034)
[2025-05-05] MEDS: diazePAM 5MG TABLET 5 MG PO (19:59)
[2025-05-05] MEDS: ONDANSETRON 4MG/2ML VIAL 4 MG IV (20:26)
[2025-05-05 21:08] LABS: Microscopic, Urine URINE MICROSCOPIC (MICROSCOPIC)
[2025-05-05 21:16] LABS: Color,Urine YELLOW (Yellow); Glucose,Urine (UA) Negative (Negative); Ketones,Urine 1+ (Negative); Leukocyte Esterase,Urine Negative (Negative); PH,Urine 6.0 (5.0-8.5); Protein,Urine 1+ (Negative); Specific Gravity, Urine >= 1.030 (1.005-1.030); Urobilinogen,Urine 0.2 EU/dl (0.2)
[2025-05-05 21:19] LABS: Bilirubin,Urine Negative (Negative)
[2025-05-05 21:47] LABS: Bacteria,Urine 1+ /lpf; Mucus,Urine 1+ /lpf; Sperm,Urine 1+ /lpf
[2025-05-05 21:50] LABS: Reflex Lactic Add Lactic Reflex
[2025-05-05 22:40] LABS: Lactic Acid Follow Up (RFLX 1) 6.3 mmol/L (0.7-2.1)
--- NOTE | 2025-05-05 22:42 | PC.NURSE ---
Notified MD Shanti Farmer about patients lactate its now 6.3. MD Shanti Farmer is going to start lactacted ringers at 150mls an hour.
[2025-05-05] MEDS: NOREPINEPHRINE BITARTRATE/D5W 8 MG/250 ML PLAST..BAG 45 MG IV (22:51)
[2025-05-05] MEDS: LACTATED RINGERS 1000ML 1,000 ML 150 ML IV (23:25)
[2025-05-06] VITALS (59 sets, daily range): BP systolic 73–133; BP diastolic 43–87; PULSE 74–125; RESP 17–38; TEMP 36.4–37.1; O2SAT 86–98; BMI 16.8
[2025-05-06 00:02] LABS: Troponin I 1.21 ng/ml (0.00-0.034)
--- NOTE | 2025-05-06 00:04 | PC.NURSE ---
Called MD Tracy Farmer about patients troponin level it is 1.21. MD ratliff wants to get a EKG and will consult cardiology in the am.
--- NOTE | 2025-05-06 00:13 | ECG_ITS ---
APPROVED REPORT Exam: Resting ECG HR:119 bpm ECG Measurements Heart Rate 119 AXES TN 131 P 64 QRSd 86 QRS 64 QT 291 T 70 QTc 361 Conclusion SINUS TACHYCARDIA ABNORMAL RHYTHM ECG UNCONFIRMED REPORT Electronically signed by : Jarett Nguyen MD 05/06/2025 07:54:57
[2025-05-06 00:39] LABS: Reflex Lactic (2 hrs) Add Lactic Reflex
[2025-05-06 00:39] LABS: Chloride 98 mmol/L (98-107); Potassium 4.8 mmoL/L (3.5-5.1); Sodium 130 mmol/L (136-145)
[2025-05-06 00:42] LABS: Anion Gap 20.8 mEq/L (5-15); Blood Urea Nitrogen 21 mg/dl (9-20); Calcium 9.1 mg/dl (8.4-10.2); Carbon Dioxide 16 mmol/L (22.0-30.0); Creatinine Clearance Estimated 50 mL/min (50-200); Creatinine,Serum 1.00 mg/dl (0.66-1.25); Estimated Glomerular Filt Rate 75 ml/min (>60); GFR (African American) 90 ML/MIN (>60); Glucose 111 mg/dl (74-100)
[2025-05-06 01:41] LABS: Lactic Acid Follow up (RFLX 2) 5.7 mmol/L (0.7-2.1)
[2025-05-06] MEDS: ONDANSETRON 4MG/2ML VIAL 4 MG IV ×2 (02:20→10:39)
[2025-05-06] MEDS: NOREPINEPHRINE BITARTRATE/D5W 8 MG/250 ML PLAST..BAG 30 MG IV (02:49)
--- NOTE | 2025-05-06 03:19 | PC.NURSE ---
patient has a small skin tear on the right arm near the elbow from where he can't get comfortable in the bed so he keeps moving around. It was covered with a 4x4 and koban
[2025-05-06 05:43] LABS: Magnesium 1.7 mg/dl (1.6-2.3)
[2025-05-06 05:55] LABS: Troponin I 1.09 ng/ml (0.00-0.034)
--- NOTE | 2025-05-06 05:56 | PC.NURSE ---
Lab called with critical Troponin. 10.21. Md Shanti Farmer made aware.
--- NOTE | 2025-05-06 06:00 | CA_ITS ---
APPROVED REPORT EXAM: Comprehensive 2D, Doppler, and color-flow Echocardiogram Oxyacetylene Cutter: Noni Marino CRT Ht: 5 ft 6 in Wt: 107lbs BSA: 1.53 BP: 85/50 mmHg Indications: post-op colonoscopy hypotension, lung ca, mets colon recent dx, smoker, r leg amputee Pt refused to roll due to discomfort. pt flat on back. 2D Dimensions LA Volume 17.10 mL LA Volume Index 11.18 mL/m2 (M/F) 16-34 M-Mode Dimensions RVDd 2.09 cm (0.9-2.6) LA Diam 2.30 cm (1.9-4.0) LVDd 3.20 cm (3.5-5.7) LVDs 2.56 cm (3.5-5.7) IVSd 1.25 cm (0.6-1.1) PWd 1.16 cm (0.6-1.1) EF (Teich) 42.20% FS 20.00% EDV (Teich) 41.00 mL ESV (Teich) 23.70 mL Aortic Valve AO Peak GR. 9.00 mmHg Tricuspid Valve TR P. Velocity 314.00 cm/s RAP Estimate 10.00 mmHg RVSP 49.40 mmHg Left Ventricle The left ventricle is normal size. The left ventricular systolic function is low-normal. There is increased LV wall thickness. There is moderate hypokinesis of the LV apical wall. Transmitral Doppler flow pattern suggests impaired LV relaxation. LVEF is 50%. Right Ventricle The right ventricle is normal size. The right ventricular systolic function is normal. Atria The left atrium size is normal. The right atrium size is normal. There is no Doppler evidence of interatrial shunt. Aortic Valve The aortic valve is mildly thickened. There is no hemodynamically significant aortic valvular stenosis. Trace aortic regurgitation. Mitral Valve The mitral valve is normal in structure. No evidence of mitral valve stenosis. Mild mitral regurgitation. Tricuspid Valve Tricuspid valve is grossly normal in structure and function. Mild tricuspid regurgitation. RVSP is 35-40 mmHg. Pulmonic Valve The pulmonary valve is normal in structure. Trace pulmonic regurgitation. Great Vessels The aortic root is normal in size. IVC is normal in size and collapses >50% with inspiration. Pericardium There is no pericardial effusion. Other Information Study Quality: Fair Conclusion Low-normal LV systolic function (LVEF 50%). Moderate hypokinesis of the LV apical wall. Mild MR, mild TR. Electronically signed by : Indu Hoang MD 05/06/2025 12:34:59
--- NOTE | 2025-05-06 06:00 | PC.NURSE ---
Patients oxygen turned from 6 liters per minute down to 4 liters per minute at 0510. Patient oxygen still staying 98 on 4 liters, patient is now turned down to 2 liters per minute. Patient oxygen is staying 93-94%
[2025-05-06 06:02] LABS: Hematocrit 25.2 % (42.0-52.0); Hemoglobin 8.6 g/dL (14.1-18.0); Immature Granulocytes % 0.8 %; Mean Corpuscular HGB Conc 34.1 g/dL (31.8-35.4); Mean Corpuscular Hemoglobin 30.5 pg (27.0-31.2); Mean Corpuscular Volume 89.4 fl (80-94); Nucleated Red Blood Cells % 0 %; Platelet Count 367 K/mm3 (142-424); Red Blood Count 2.82 M/mm3 (4.60-6.20); Red Cell Distribution Width-SD 45.4 fL; White Blood Count 18.1 K/mm3 (4.8-10.8)
[2025-05-06] MEDS: IPRATROPIUM/ALBUTEROL 3 ML NEB IH ×2 (06:10→18:34)
[2025-05-06 06:20] LABS: Total Cells Counted 100
[2025-05-06] MEDS: diazePAM 5MG TABLET 5 MG PO (08:36)
[2025-05-06] MEDS: NICOTINE 14MG/24HRS PATCH 14 MG TD (08:36)
[2025-05-06] MEDS: APIXABAN 5MG TABLET 5 MG PO (08:36)
[2025-05-06] MEDS: CLOPIDOGREL 75MG TAB 75 MG PO (08:36)
--- NOTE | 2025-05-06 09:39 | EXP.PULM.CON ---
History of Present Illness History of present illness: Mr. Rajan is a 64-year-old male current smoker greater than [id number] smoking history multiple pulmonary nodules lymphadenopathy status post EBUS FNA metastatic squamous cell carcinoma establish care with oncology at [facility] presented for outpatient elective colonoscopy found to have concerning ileus versus colonic obstruction and admitted to the hospital for further evaluation and management. Patient admits worsening respiratory distress. Slurred speech. [facility] Disclaimer: The information contained in this section may have been updated after the patient was seen, as this information can be updated by other users. Medical History (Updated 05/06/25 @ 11:42 by Maddison Pena MD) Disseminated malignancy of unknown primary Sepsis Pneumonia Mediastinal lymphadenopathy Dyspnea on exertion Smoking greater than 30 pack years Colonic mass Multiple lung nodules on CT Amputated right leg Hyperlipidemia Surgical History History of arterial bypass of lower limb History of right below knee amputation Family History Father Alcoholism Mother Cancer Breast Alzheimer's dementia Social History (Updated 05/05/25 @ 19:39 by Valerie Agarwal RN) Smoking Status: Former smoker years smoked: 40 alcohol intake: former substance use type: denies use current occupational status: disabled Travel in the last 8 weeks?: None Have you lived/traveled outside US in past 30 days?: No Contact w/someone who lives/traveled outside US past 30 days?: No Exposure to someone with infectious disease in past 14 days?: No Do you have a fever (greater than 100.4 F or 38 C)?: No Have you tested positive for COVID-19?: No Exposed to someone with COVID-19 in past 14 days?: No Do you have a sore throat?: No Do you have a cough?: No Do you have any weakness?: No Are you experiencing any nausea/vomitting?: No Do you have any diarrhea?: No Are you experiencing any unusual bleeding?: No Do you have any muscle aches/pain?: No Do you have any abdominal pain?: No Are you experiencing loss of taste or smell?: No Review of Systems Constitutional Constitutional: Reports anorexia, Reports body ache(s), Reports fatigue, Reports poor appetite, Reports lethargy and Reports weakness Eyes Eyes: Denies eye discharge, Denies dry eyes, Denies irritation and Denies itchy eyes ENT Ears, Nose, Mouth, and Throat: Denies epistaxis, Denies facial pain, Denies lip swelling and Denies throat swelling *Cardiovascular Cardiovascular: Reports dyspnea and Reports dyspnea on exertion *Respiratory Respiratory: Denies change in phlegm color, Reports chest congestion, Reports cough, Reports dyspnea, Reports dyspnea on exertion, Reports excessive phlegm production, Denies hemoptysis, Denies pain on inspiration, Denies pain with cough and Reports wheezing *Gastrointestinal Gastrointestinal: Denies abdominal pain, Denies belching and Denies cramping *Musculoskeletal Musculoskeletal: Reports back pain, Reports myalgias and Reports other (No small joint swelling or Pain) *Neurologic Neurologic: Reports weakness Psychiatric Psychiatric: Denies homicidal ideation and Denies suicidal ideation Endocrine Endocrine: Reports fatigue and Denies heat intolerance Hematologic/Lymphatic Hematologic/Lymphatic: Denies easy bleeding and Denies lymphadenopathy Allergic/Immunologic Allergic/Immunologic: Denies itchy eyes, Denies lip swelling, Denies throat swelling and Reports wheezing Pulmonology Exam Inpatient Vital signs and Labs for Last 24 Hours: Temp Pulse Resp BP Pulse Ox O2 Del Method O2 Flow Rate 97.6 F 115 H 32 H 92/60 L 92 L Nasal Cannula 2 05/06/25 08:09 05/06/25 09:00 05/06/25 09:00 05/06/25 09:00 05/06/25 09:00 05/06/25 09:00 05/06/25 09:00 Laboratory Results - last 24 hr 05/05/25 15:54: POC Glucose 89 05/05/25 16:03: Urine Color Yellow, Urine Appearance Clear, Urine pH 6.0, Ur Specific [place] >= 1.030, Urine Protein 1+ A, Urine Glucose (UA) Negative, Urine Ketones 1+, Urine Blood Negative, Urine Nitrate Negative, Urine Bilirubin Negative, Urine Urobilinogen 0.2, Ur Leukocyte Esterase Negative, Urine RBC 3-5, Urine WBC 3-5, Ur Squamous Epith Cells 3-5, Urine Bacteria 1+, Hyaline Casts 5-10, Urine Mucus 1+, Urine Sperm 1+ 05/05/25 16:12: WBC 19.8 H, RBC 2.94 L, Hgb 8.9 L, Hct 26.6 L, MCV 90.5, MCH 30.3, MCHC 33.5, RDW 13.9, Plt Count 327, MPV 9.6, Neut % (Auto) 89.0 H, Lymph % (Auto) 3.9 L, [place] % (Auto) 5.6, Eos % (Auto) 0.2, Baso % (Auto) 0.3, Neut # (Auto) 17.7 H, Lymph # (Auto) 0.8, [place] # (Auto) 1.1 H, Eos # (Auto) 0.0, Baso # (Auto) 0.1, Sodium 130 L, Potassium 4.1, Chloride 100, Carbon Dioxide 26, Anion Gap 8.1, BUN 13, Creatinine 0.60 L, Estimated Creat Clear 51, Estimated GFR 135, Est GFR ( Amer) 163, Glucose 98, Calcium 8.4, Total Bilirubin < 0.1 L, AST 24, ALT 14, Alkaline Phosphatase 97, Total Creatine Kinase 26 L, Troponin I < 0.01, Total Protein 4.4 L D, Albumin 2.5 L, Globulin 1.9, Albumin/Globulin Ratio 1.3 05/05/25 17:40: PT 11.9, INR 1.08, Lactate 5.0 H, Troponin I 0.01, NT-Pro-B Natriuret Pep 57.3 05/05/25 22:30: Lactate 6.3 H 05/05/25 23:21: Troponin I 1.21 H 05/06/25 00:00: Sodium 130 L, Potassium 4.8, Chloride 98, Carbon Dioxide 16 L, Anion Gap 20.8 H, BUN 21 H D, Creatinine 1.00 D, Estimated Creat Clear 50, Estimated GFR 75, Est GFR ( Amer) 90 D, Glucose 111 H, Calcium 9.1 05/06/25 01:09: Lactate 5.7 H 05/06/25 03:53: WBC 18.1 H, RBC 2.82 L, Hgb 8.6 L, Hct 25.2 L, MCV 89.4, MCH 30.5, MCHC 34.1, RDW 14.1, Plt Count 367, MPV 10.0, Neut % (Auto) 84.8 H, Lymph % (Auto) 5.1 L, [place] % (Auto) 9.1, Eos % (Auto) 0.0 L, Baso % (Auto) 0.2, Neut # (Auto) 15.4 H, Lymph # (Auto) 0.9, [place] # (Auto) 1.7 H, Eos # (Auto) 0.0, Baso # (Auto) 0.0, Total Counted 100, Neutrophils % (Manual) 87 H, Lymphocytes % (Manual) 2 L, Monocytes % (Manual) 11 H, Magnesium 1.7, Troponin I 1.09 H I & O for Labs for Last 24 Hours: Intake & Output 05/03/25 05/04/25 05/05/25 05/06/25 23:59 23:59 23:59 23:59 Intake Total 713.658 / 7208.995 2943.704 / 1665.704 Output Total 100 / 100 300 / 300 Balance 613.658 / 1974.421 4023.704 / 1365.704 Weight 109 lb 107 lb 1 oz 107 lb 6.4 oz Constitutional: Present severe distress Head: Present normocephalic and atraumatic ENT: Present normal exam, normal oropharynx and mucous membranes moist Neck: Present normal inspection and full ROM Respiratory: Present respiratory distress, rhonchi, wheezes, diminished air movement and able to speak in complete sentences Cardiac: Present S1/S2, Tachycardia and radial pulses present GI: Present soft and distention; Absent tenderness or guarding Skin: Present intact; Absent cyanosis or jaundice Neuro: Present alert, awake and oriented x 3 Comment:: Slurred speech Extremities: Present normal inspection; Absent clubbing or cyanosis Psychiatric: Present normal affect and cooperative Meds Home Medications and Allergies Home Medications ?Medication ?Instructions ?Recorded ?Confirmed ?Type atorvastatin 80 mg tablet 80 mg PO DAILY 07/14/22 05/05/25 History albuterol sulfate 90 mcg/actuation 2 puff inhalation Q4HP PRN 04/07/25 05/06/25 History aerosol inhaler Shortness Of Breath apixaban 5 mg tablet (Eliquis) 5 mg PO BID 04/07/25 05/05/25 History clopidogrel 75 mg tablet 75 mg PO DAILY 04/07/25 05/05/25 History diltiazem HCl 180 mg 180 mg PO DAILY 04/07/25 05/05/25 History capsule,extended release 24 hr nicotine 14 mg/24 hr daily 1 patch transdermal DAILY #28 ea 04/07/25 05/05/25 Rx transdermal patch diazepam 5 mg tablet 5 mg PO BIDP PRN Anxiety 04/21/25 05/06/25 History tiotropium 2.5 mcg-olodaterol 2.5 2 puff inhalation DAILY 04/21/25 05/05/25 History mcg/actuation mist for inhalation (Stiolto Respimat) magnesium hydroxide 400 mg/5 mL 5 ml PO DAILY PRN Abdominal 04/26/25 05/05/25 History oral suspension (Dulcolax Discomfort (magnesium hydroxide)) New Prescriptions to Start Prescriptions: Allergies Allergy/AdvReac Type Severity Reaction Status Date / Time No Known Allergies Allergy Verified 05/05/25 13:37 Results Laboratory Findings 05/06/25 03:53 05/06/25 00:00 PT/INR, D-dimer PT 11.9 seconds (10.1-12.5) 05/05/25 17:40 INR 1.08 (0.9-1.1) 05/05/25 17:40 Abnormal lab findings: Abnormal Labs 05/05/25 05/05/25 05/05/25 16:03 16:12 17:40 WBC 19.8 H RBC 2.94 L Hgb 8.9 L Hct 26.6 L Neut % (Auto) 89.0 H Lymph % (Auto) 3.9 L Eos % (Auto) Neut # (Auto) 17.7 H [place] # (Auto) 1.1 H Neutrophils % (Manual) Lymphocytes % (Manual) Monocytes % (Manual) Sodium 130 L Carbon Dioxide Anion Gap BUN Creatinine 0.60 L Glucose Lactate 5.0 H Total Bilirubin < 0.1 L Total Creatine Kinase 26 L Troponin I Total Protein 4.4 L D Albumin 2.5 L Urine Protein 1+ A 05/05/25 05/05/25 05/06/25 22:30 23:21 00:00 WBC RBC Hgb Hct Neut % (Auto) Lymph % (Auto) Eos % (Auto) Neut # (Auto) [place] # (Auto) Neutrophils % (Manual) Lymphocytes % (Manual) Monocytes % (Manual) Sodium 130 L Carbon Dioxide 16 L Anion Gap 20.8 H BUN 21 H D Creatinine Glucose 111 H Lactate 6.3 H Total Bilirubin Total Creatine Kinase Troponin I 1.21 H Total Protein Albumin Urine Protein 05/06/25 05/06/25 01:09 03:53 WBC 18.1 H RBC 2.82 L Hgb 8.6 L Hct 25.2 L Neut % (Auto) 84.8 H Lymph % (Auto) 5.1 L Eos % (Auto) 0.0 L Neut # (Auto) 15.4 H [place] # (Auto) 1.7 H Neutrophils % (Manual) 87 H Lymphocytes % (Manual) 2 L Monocytes % (Manual) 11 H Sodium Carbon Dioxide Anion Gap BUN Creatinine Glucose Lactate 5.7 H Total Bilirubin Total Creatine Kinase Troponin I 1.09 H Total Protein Albumin Urine Protein Assessment and Plan *Assessment and plan (1) Pneumonia: Status: Acute Category: Medical Code(s): J18.9 - Pneumonia, unspecified organism (2) Sepsis: Status: Acute Category: Medical Code(s): A41.9 - Sepsis, unspecified organism (3) Disseminated malignancy of unknown primary: Status: Acute Category: Medical Code(s): C80.0 - Disseminated malignant neoplasm, unspecified; C80.1 - Malignant (primary) neoplasm, unspecified Plan Mr. Rajan is a 64-year-old male current smoker greater than [id number] smoking history multiple pulmonary nodules lymphadenopathy status post EBUS FNA metastatic squamous cell carcinoma establish care with oncology at [facility] presented for outpatient elective colonoscopy found to have concerning ileus versus colonic obstruction and admitted to the hospital for further evaluation and management. Patient admits worsening respiratory distress. Slurred speech. Patient examination severe distress. Slurred speech. Needing new oxygen requirements. Hemodynamically unstable with maps around 60. Chest x-ray on admission slight worsening infiltrates from prior. Infectious workup from bronchoscopy within normal limits ABG from this morning did not reveal any evidence of severe hypercarbic respiratory failure. Plan: Continue vasopressor support as needed to maintain MAP goal of 65 and above. Additional 1 L LR bolus Change antibiotics to Zosyn pending sputum culture results and blood culture results Recommend CT head W/WO contrast stat CTA PE protocol DuoNebs every 6 hours on a scheduled basis Oxygen supplementation to maintain O2 saturation goal of 90% and above Respiratory viral PCR, nasal MRSA PCR and sputum cultures with iduction
--- NOTE | 2025-05-06 11:06 | CT_ITS ---
FINAL REPORT TECHNIQUE: Multiple axial CT sections were performed from the foramen magnum to the vertex. Coronal reformatted images were also obtained. Precontrast and postcontrast injection images were obtained. This study was performed with technique to keep radiation doses as low as reasonably achievable, (ALARA). Individualized dose reduction techniques using automated exposure control or adjustment of mA and/or kV according to the patient size were employed. CLINICAL HISTORY: Slurred speech COMPARISON: 04/05/2025 FINDINGS: The ventricles are normal in size. There is no evidence of hemorrhage. No masses are identified. No extra-axial fluid collection is seen. The sinuses are normal. No osseous abnormality is seen on the bone window images. Postcontrast images demonstrate no abnormal enhancement. IMPRESSION: Unremarkable CT of the head with and without contrast. Reviewed, Interpreted and Dictated by Tracy Overton MD Transcribed by Margaret Patino Authenticated and [facility]
--- NOTE | 2025-05-06 11:13 | CT_ITS ---
FINAL REPORT TECHNIQUE: Thin section axial CT with contrast with multiplanar reconstruction. This study was performed with techniques to keep radiation doses as low as reasonably achievable, (ALARA). Individualized dose reduction techniques using automated exposure control or adjustment of mA and/or kV according to the patient's size were employed. CLINICAL HISTORY: Hypoxia COMPARISON: CT chest dated 03/17/2025 FINDINGS: Pulmonary vessels enhance in normal fashion without evidence of embolism. Thoracic aorta shows no dissection or aneurysm. There are innumerable pulmonary nodules compatible with metastatic disease, worse from prior exam. Much of the nodularity is confluent in the periphery of the lungs. In addition, there is near complete consolidation of the left lower lobe, which has progressed from prior exam. There is a soft tissue mass obstructing the left lower lobe bronchus. There is no significant pleural effusion. There is mild subcarinal adenopathy, which appears stable. Upper abdomen shows new ascites. In addition, there is complex fluid surrounding the spleen which could represent hemorrhage. IMPRESSION: Extensive pulmonary metastases, worse from prior exam. Increasing dense consolidation left lower lobe attributed to mass obstructing the left lower lobe bronchus. No significant pleural effusion. New ascites in the upper abdomen with complex fluid surrounding the spleen. This could represent hemorrhage or infected ascites. Reviewed, Interpreted and Dictated by Tracy Overton MD Transcribed by Margaret Patino Authenticated and [facility]
[2025-05-06 11:46] LABS: Adenovirus,PCR Not Detected (NotDetected); Chlamydophila Pneumoniae, PCR Not Detected (NotDetected); Coronavirus 19, PCR Not Detected (NotDetected); Coronovirus HKU1,PCR Not Detected (NotDetected); Influenza A, PCR Not Detected (NotDetected); Influenza AH1, 2009 Not Detected (NotDetected); Influenza AH1, PCR Not Detected (NotDetected); Influenza AH3,PCR Not Detected (NotDetected); Influenza B, PCR Not Detected (NotDetected); Mycoplasma Pneumoniae, PCR Not Detected (NotDetected); Parainfluenza 1, PCR Not Detected (NotDetected); Parainfluenza 2, PCR Not Detected (NotDetected); Parainfluenza 3, PCR Not Detected (NotDetected); Parainfluenza 4, PCR Not Detected (NotDetected)
[2025-05-06 11:47] LABS: ABG HCO3 22.2 mmhg (22.0-26.0); ABG PCO2 31.7 mmhg (35.0-45.0); ABG PH 7.46 mmol/L (7.35-7.45); ABG PO2 60.1 mmhg (80-100)
[2025-05-06 11:48] LABS: ABG TCO2 23.2 mmhg (23-27); Source Right Brachial
--- NOTE | 2025-05-06 11:52 | HMH.PTEV ---
Physical Therapy Evaluation Rehab PT IP Evaluation Start: 05/05/25 19:25 Freq: ONCE Status: Active Protocol: Document 05/06/25 11:46 AMPARO (Rec: 05/06/25 11:52 PHOSUSAN [id number]) Subjective/History History History 64 yowm adm to [facility] after difficulty recovering from colonoscopy. Pt has PMH of R AKA, lung cancer. He reports he feels weaker than normal overall and has for several weeks. He reports he lives with his , ramp to enter the home and he is generally independent with slide transfers to/from his w/c which is his primary mode of mobility. Subjective Subjective Currently pt remains weak this morning per his report. He does agree to sit at EOB. [facility] How much help from another person do you currently need... Turning from your None back to your side while in a flat bed without using bedrails? Moving from lying on None back to sitting on the side of a flat bed without using bedrails? Moving to and from a A little bed to a chair ( including a wheelchair)? Standing up from a A lot chair using your arms? (e.g., wheelchair, bedside chair) Walking in hospital A lot room? Climbing 3-5 steps A lot with a railing? Mobility Score 17 Mobility Level [facility] Mobility 5 Stand (1 or more minutes) Mobility Calculator Rehab PT IP Eval Objective Appearance Patient Behavior Appropriate Patient Orientation Person,Place,Time Difficulty following none instructions Speech Pattern Clear Ambulation Patient Able to No Ambulate Balance Ability to Arise Able, uses arms to help Sitting Balance Steady, safe Dynamic Sitting Good Balance Ability Transfers Bed Transfer Ability Independent Rehab PT IP prob,goals,plan Problems Date of Evaluation: 05/06/25 Discharge Plan PT Discharge Plan Pt is currently appropriate to return home with family support once medically stable for d/c. No current needs for acute skilled therapy services. recommend home health services as needed after d/c home. Eval Complexity Eval Charge Codes 61889 - High Complexity PHYSICIAN CERTIFICATION: I certify the specified therapy services for Juventino Gipson are required, authorized, and reviewed every 30 days.
[2025-05-06] MEDS: SODIUM CHLORIDE 0.9% 10ML SYR (RAD ONLY) 10 ML IV (11:55)
[2025-05-06] MEDS: IOPAMIDOL-370 (76%);100ML BOTTLE 150 ML IV (11:55)
[2025-05-06] MEDS: 0.9 % SODIUM CHLORIDE 50 ML VIAL IV (11:55)
--- NOTE | 2025-05-06 12:02 | SW/DCPLANNER ---
PT/OT state patient is at functional baseline. Spoke with patient and they deny any needs at home.
[2025-05-06] MEDS: PIPERCILLIN/TAZO 3.375 GM in 0.9 % SODIUM CHLORIDE 50 ML IV ×2 (12:24→18:18)
--- NOTE | 2025-05-06 12:26 | EXP.CARD.CON ---
History of Present Illness History of Present Illness Consult date: 05/06/25 Requesting physician: Santino Barbosa Consult reason: hypotension Chief complaint: Hypotension History of present illness: This is a 64-year-old white gentleman who presented to the hospital for diagnostic colonoscopy. 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 The patient had his colonoscopy yesterday and then became hypotensive following the procedure. He received 2 L of fluid without improvement in his blood pressure. His blood pressure remained in the 70s/50s so he was started on a Levophed drip and subsequently admitted to the hospital. Cardiology was consulted due to an elevated troponin. This morning he remains on Levophed. He denies any chest pain or pressure. He states that he does have some shortness of breath intermittently and uses oxygen at home. He was recently diagnosed with lung cancer so he states that he feels like he is using the oxygen a little more than normal but this is not unusual for him to do it at times. He denies any lower extremity edema. He is status post right leg amputation because of having blood clots in his leg. He denies any fever, chills, nausea, vomiting, diarrhea, PND or orthopnea. [facility] Disclaimer: The information contained in this section may have been updated after the patient was seen, as this information can be updated by other users. Medical History (Updated 05/06/25 @ 12:31 by Joanie Rodríguez APRN) Elevated troponin Metastatic squamous cell carcinoma involving lung with unknown primary site Disseminated malignancy of unknown primary Sepsis Pneumonia Mediastinal lymphadenopathy Dyspnea on exertion Smoking greater than 30 pack years Colonic mass Multiple lung nodules on CT Amputated right leg Hyperlipidemia Surgical History History of arterial bypass of lower limb History of right below knee amputation Family History Father Alcoholism Mother Cancer Breast Alzheimer's dementia Social History (Updated 05/05/25 @ 19:39 by Valerie Agarwal RN) Smoking Status: Former smoker years smoked: 40 alcohol intake: former substance use type: denies use current occupational status: disabled Travel in the last 8 weeks?: None Have you lived/traveled outside US in past 30 days?: No Contact w/someone who lives/traveled outside US past 30 days?: No Exposure to someone with infectious disease in past 14 days?: No Do you have a fever (greater than 100.4 F or 38 C)?: No Have you tested positive for COVID-19?: No Exposed to someone with COVID-19 in past 14 days?: No Do you have a sore throat?: No Do you have a cough?: No Do you have any weakness?: No Are you experiencing any nausea/vomitting?: No Do you have any diarrhea?: No Are you experiencing any unusual bleeding?: No Do you have any muscle aches/pain?: No Do you have any abdominal pain?: No Are you experiencing loss of taste or smell?: No Review of Systems Review of Systems Review of systems:: pertinent systems reviewed and negative unless documented below Constitutional Constitutional: Reports system reviewed and no additional complaints, except as documented and Reports weakness Eyes Eyes: Reports system reviewed and no additional complaints, except as documented ENT Ears, Nose, Mouth, and Throat: Reports system reviewed and no additional complaints, except as documented *Cardiovascular Cardiovascular: Reports system reviewed and no additional complaints, except as documented and Reports dyspnea on exertion *Respiratory Respiratory: Reports system reviewed and no additional complaints, except as documented, Reports cough and Reports dyspnea on exertion *Gastrointestinal Gastrointestinal: Reports system reviewed and no additional complaints, except as documented *Genitourinary Genitourinary: Reports system reviewed and no additional complaints, except as documented *Musculoskeletal Musculoskeletal: Reports system reviewed and no additional complaints, except as documented Integumentary/Breasts Skin/Breast: Reports system reviewed and no additional complaints, except as documented *Neurologic Neurologic: Reports system reviewed and no additional complaints, except as documented and Reports weakness Psychiatric Psychiatric: Reports system reviewed and no additional complaints, except as documented Endocrine Endocrine: Reports system reviewed and no additional complaints, except as documented Hematologic/Lymphatic Hematologic/Lymphatic: Reports system reviewed and no additional complaints, except as documented Allergic/Immunologic Allergic/Immunologic: Reports system reviewed and no additional complaints, except as documented Exam Data for Last 24 hours Vital signs and Labs for Last 24 Hours: Temp Pulse Resp BP Pulse Ox O2 Del Method O2 Flow Rate 97.6 F 89 37 H 87/55 L 89 L Nasal Cannula 2 05/06/25 08:09 05/06/25 12:15 05/06/25 12:15 05/06/25 12:15 05/06/25 12:15 05/06/25 12:15 05/06/25 12:15 Laboratory Results - last 24 hr 05/05/25 15:54: POC Glucose 89 05/05/25 16:03: Urine Color Yellow, Urine Appearance Clear, Urine pH 6.0, Ur Specific [place] >= 1.030, Urine Protein 1+ A, Urine Glucose (UA) Negative, Urine Ketones 1+, Urine Blood Negative, Urine Nitrate Negative, Urine Bilirubin Negative, Urine Urobilinogen 0.2, Ur Leukocyte Esterase Negative, Urine RBC 3-5, Urine WBC 3-5, Ur Squamous Epith Cells 3-5, Urine Bacteria 1+, Hyaline Casts 5-10, Urine Mucus 1+, Urine Sperm 1+ 05/05/25 16:12: WBC 19.8 H, RBC 2.94 L, Hgb 8.9 L, Hct 26.6 L, MCV 90.5, MCH 30.3, MCHC 33.5, RDW 13.9, Plt Count 327, MPV 9.6, Neut % (Auto) 89.0 H, Lymph % (Auto) 3.9 L, Payne % (Auto) 5.6, Eos % (Auto) 0.2, Baso % (Auto) 0.3, Neut # (Auto) 17.7 H, Lymph # (Auto) 0.8, Payne # (Auto) 1.1 H, Eos # (Auto) 0.0, Baso # (Auto) 0.1, Sodium 130 L, Potassium 4.1, Chloride 100, Carbon Dioxide 26, Anion Gap 8.1, BUN 13, Creatinine 0.60 L, Estimated Creat Clear 51, Estimated GFR 135, Est GFR ( Amer) 163, Glucose 98, Calcium 8.4, Total Bilirubin < 0.1 L, AST 24, ALT 14, Alkaline Phosphatase 97, Total Creatine Kinase 26 L, Troponin I < 0.01, Total Protein 4.4 L D, Albumin 2.5 L, Globulin 1.9, Albumin/Globulin Ratio 1.3 05/05/25 17:40: PT 11.9, INR 1.08, Lactate 5.0 H, Troponin I 0.01, NT-Pro-B Natriuret Pep 57.3 05/05/25 22:30: Lactate 6.3 H 05/05/25 23:21: Troponin I 1.21 H 05/06/25 00:00: Sodium 130 L, Potassium 4.8, Chloride 98, Carbon Dioxide 16 L, Anion Gap 20.8 H, BUN 21 H D, Creatinine 1.00 D, Estimated Creat Clear 50, Estimated GFR 75, Est GFR ( Amer) 90 D, Glucose 111 H, Calcium 9.1 05/06/25 01:09: Lactate 5.7 H 05/06/25 03:53: WBC 18.1 H, RBC 2.82 L, Hgb 8.6 L, Hct 25.2 L, MCV 89.4, MCH 30.5, MCHC 34.1, RDW 14.1, Plt Count 367, MPV 10.0, Neut % (Auto) 84.8 H, Lymph % (Auto) 5.1 L, Payne % (Auto) 9.1, Eos % (Auto) 0.0 L, Baso % (Auto) 0.2, Neut # (Auto) 15.4 H, Lymph # (Auto) 0.9, Payne # (Auto) 1.7 H, Eos # (Auto) 0.0, Baso # (Auto) 0.0, Total Counted 100, Neutrophils % (Manual) 87 H, Lymphocytes % (Manual) 2 L, Monocytes % (Manual) 11 H, Magnesium 1.7, Troponin I 1.09 H 05/06/25 11:13: Specimen Source Right brachial, O2 % 2 lpm, ABG pH 7.46 H, ABG pCO2 31.7 L, ABG pO2 60.1 L, ABG HCO3 22.2, ABG Total CO2 23.2, ABG O2 Saturation 89 L, ABG Base Excess -1.2, Rudy Test N/a I & O for Last 24 hours: Intake & Output 05/03/25 05/04/25 05/05/25 05/06/25 23:59 23:59 23:59 23:59 Intake Total 713.658 / 5014.917 1461.991 / 1679.991 Output Total 100 / 100 400 / 400 Balance 613.658 / 7118.559 7562.991 / 1279.991 Weight 109 lb 107 lb 1 oz 107 lb 6.4 oz Constitutional Constitutional: no acute distress, average body habitus and chronically ill appearing *Routine HEENT Exam Head: Present normocephalic and atraumatic ENT: Present mucous membranes moist *Routine Neck Exam Neck: Present supple, full ROM and normal carotid upstroke; Absent JVD, carotid bruit or lymphadenopathy *Routine Respiratory Exam Respiratory: Present CTA bilaterally, normal respiratory effort, able to speak in complete sentences and symmetric chest movement *Routine Cardiovascular Exam Cardiovascular: Present RRR, Normal S1 and Normal S2; Absent murmur or gallop *Routine Abdominal Exam Abdominal: Present soft and normoactive bowel sounds; Absent tenderness, distended or organomegaly *Routine Extremities Exam Extremities: Present full ROM, pulses intact, normal capillary refill and amputation (Right lower extremity); Absent cyanosis, clubbing or edema *Routine Skin Exam Skin: Present intact and warm; Absent erythema *Routine Neurological Exam Neurological: Present alert, oriented X3 and CN II-XII intact; Absent sensory deficit or motor deficit Routine Psychiatric Exam Psychiatric: Present normal affect Meds Home Medications and Allergies Home Medications ?Medication ?Instructions ?Recorded ?Confirmed ?Type atorvastatin 80 mg tablet 80 mg PO DAILY 07/14/22 05/05/25 History albuterol sulfate 90 mcg/actuation 2 puff inhalation Q4HP PRN 04/07/25 05/06/25 History aerosol inhaler Shortness Of Breath apixaban 5 mg tablet (Eliquis) 5 mg PO BID 04/07/25 05/05/25 History clopidogrel 75 mg tablet 75 mg PO DAILY 04/07/25 05/05/25 History diltiazem HCl 180 mg 180 mg PO DAILY 04/07/25 05/05/25 History capsule,extended release 24 hr nicotine 14 mg/24 hr daily 1 patch transdermal DAILY #28 ea 04/07/25 05/05/25 Rx transdermal patch diazepam 5 mg tablet 5 mg PO BIDP PRN Anxiety 04/21/25 05/06/25 History tiotropium 2.5 mcg-olodaterol 2.5 2 puff inhalation DAILY 04/21/25 05/05/25 History mcg/actuation mist for inhalation (Stiolto Respimat) magnesium hydroxide 400 mg/5 mL 5 ml PO DAILY PRN Abdominal 04/26/25 05/05/25 History oral suspension (Dulcolax Discomfort (magnesium hydroxide)) New Prescriptions to Start Prescriptions: Allergies Allergy/AdvReac Type Severity Reaction Status Date / Time No Known Allergies Allergy Verified 05/05/25 13:37 Assessment and Plan *Assessment and plan (1) Hypotension: Status: Acute Qualifiers: Hypotension type: postprocedural hypotension Qualified Code(s): I95.81 - Postprocedural hypotension Category: Medical Code(s): I95.9 - Hypotension, unspecified (2) Metastatic squamous cell carcinoma involving lung with unknown primary site: Status: Acute Qualifiers: Laterality: left Qualified Code(s): C78.02 - Secondary malignant neoplasm of left lung; C80.1 - Malignant (primary) neoplasm, unspecified Category: Medical Code(s): C78.00 - Secondary malignant neoplasm of unspecified lung; C80.1 - Malignant (primary) neoplasm, unspecified (3) Elevated troponin: Status: Acute Category: Medical Code(s): R79.89 - Other specified abnormal findings of blood chemistry (4) PAD (peripheral artery disease): Status: Acute Category: Medical Code(s): I73.9 - Peripheral vascular disease, unspecified (5) Current smoker: Status: Acute Category: Social Hx Code(s): F17.200 - Nicotine dependence, unspecified, uncomplicated (6) Shock: Status: Acute Category: Medical Code(s): R57.9 - Shock, unspecified (7) Sepsis: Status: Acute Qualifiers: Sepsis acute organ dysfunction status: unspecified Sepsis type: sepsis due to unspecified organism Qualified Code(s): A41.9 - Sepsis, unspecified organism Category: Medical Code(s): A41.9 - Sepsis, unspecified organism Plan Plan: 1. The patient was admitted to the hospital following a colonoscopy yesterday due to profound hypotension. He was started on a Levophed drip and remains on the Levophed drip this morning with good control of his blood pressure. 2. The patient did have an elevated troponin consistent with a non-STEMI. This is most likely a type II non-STEMI from demand ischemia from hypovolemia. No plans for invasive left cardiac catheterization at this time unless his ejection fraction is low. 3. Will obtain an echocardiogram to evaluate his LV function. If his EF is normal then the patient would benefit from an ischemic evaluation as an outpatient once he is discharged. If he does have cardiomyopathy then we may proceed with ischemic evaluation while he is hospitalized. 4. The patient does have metastatic squamous cell carcinoma of the left lung. He is currently being worked up for treatment of this and they are considering chemotherapy versus immunotherapy per the patient's . 5. His LDL goal is less than 55. Will get a lipid panel in the morning. He is on a statin. 6. Colonoscopy did show splenic flexure will volvulus which is a form of a bowel obstruction and rare. Dietary modifications have been recommended at this time versus surgery due to his metastatic lung cancer. 7. Tobacco cessation is highly advised and counseled. He states he stopped smoking 11 days ago. 8. The patient does have a history of amputation to the right lower extremity. It appears that he has a history of PAD in the right lower extremity but he states his leg was amputated due to blood clots. On Plavix. 9. The patient is on Eliquis for a history of blood clots. 10. Further recommendations will be made pending the patient's response to treatment and the results of his echocardiogram today. Thank you for the opportunity to help participate in the care of this patient. All recommendations and orders are per Dr. Hoang. Echocardiogram shows: Low-normal LV systolic function (LVEF 50%). Moderate hypokinesis of the LV apical wall. Mild MR, mild TR. The patient does have an abnormal echocardiogram showing moderate hypokinesis in the LV apical wall. This is concerning for ischemia. This could be a stress cardiomyopathy from the event yesterday. However, it is highly concerning for ischemia in the setting of his elevated troponin. The patient will need to have an inpatient ischemic evaluation once he is off of Levophed. In 2021 the patient had an ischemic limb and Dr. Alcala was unable to obtain vascular access to proceed with an angiogram of his lower extremity. He is very concerned with vascular access in this patient. He is also very thin and only weighs 107 pounds which also complicates being able to gain vascular access. Before proceeding with left cardiac catheterization, Dr. Alcala wants to proceed with CCTA on Friday to evaluate his coronary artery disease non-invasively first as long as the patient is stable on Friday and off of the Levophed drip. Will reevaluate on Friday. Continue Plavix and statin.
[2025-05-06] MEDS: LACTATED RINGERS 1000ML 1,000 ML 999 ML IV (13:04)
--- NOTE | 2025-05-06 13:14 | PC.NURSE ---
patient went down for ct around noon. tolerated trip down without levophed drip. levophed had been titrated off right before going down. bp currently on lower side but per patient family he has a systolic usually about 91-92. bolus of lr going per md order. turns self in bed well. titrated oxygen back up to 6l at this time. maintained a sat of 86 on 2l this afternoon. has been awake and alert visiting with family this shift. does have work of breathing noted.
--- NOTE | 2025-05-06 14:34 | PC.NURSE ---
spoke with dr vieira about patient consult and cta
--- OUTSIDE RECORDS SUMMARY | 2025-05-06 15:29 | XMS_ITS | Clinical Summary ---
Author Organization [facility] Address [address] [place] [address] Phone Care Team Providers Care Teacher Home Therapy Name Role Phone En Raines MD [facility] [phone] Conditions or Problems No information available. Medications No information available. Medications Administered No information available. Allergies, Adverse Reactions, Alerts No information available. Results No information available. Plan of Care No information available. Procedures No information available. Vital Signs No information available. Immunizations No information available. Advance Directives No information available.
--- OUTSIDE RECORDS SUMMARY | 2025-05-06 15:30 | XMS_ITS | Referral Summary ---
Author Organization [facility] ([place], [place], [place], [place]) Address [address] [place] [address] Care Team Providers Care Front Desk Receptionist Name Role Phone Unavailable Primary Care Provider Unavailabl e Encounters Date Type Department Care Team Description 04/12/2025 10:20 AM EDT - 04/12/2025 11:59 PM EDT Hospital Encounter [facility] PET CT - [address] [place] [employer] [address] [place] [address] Maddison Pena MD Lung nodule [...] Date Yuriy rded Speak language other than Spanish at home Not on file 10/23/2023 Want [...] on file Medical Devices Implanted Type Area Shoe Cleaner Device Identifier Shelf Expiration Date Model / Serial / Lot Grft Eptfe-Heparin Rng [id number] - [id number] Implanted:Qty : 1 on 07/18/2022 by Roly Savage at [facility] IMPLANTS N/A: Aleks NEGROE [employer] ASSC:MED PRDT 09/17/2025 [id number] / [id number] / Stnt Vbx Blln Endo [id number] - [id number] Implanted:Qty : 1 on 07/18/2022 by Roly Savage at [facility] IMPLANTS N/A: Groin WL GORE [employer] ASSC:MED PRDT 01/16/2025 [id number] / [id number] / Cath [id number] - [id number] Implanted:Qty : 1 on 07/18/2022 by Roly Savage at [facility] IMPLANTS N/A: Groin [employer] GORE [employer] ASSC:MED PRDT 05/11/2023 [id number] / [id number] / Procedures Procedure Name Priority Date/Time Associated [...] Resul t from Last 3 Months Insurance [facility] [place]ICA[place] CC[place] [employer]
--- OUTSIDE RECORDS SUMMARY | 2025-05-06 15:30 | XMS_ITS | Clinical Summary ---
Author Organization [facility] Address [address] [place] [address] Care Team Providers Care Special Investigator Name Role Phone Unavailable Primary Care Provider [...] 2008 UKY-Zoster Vaccines (1 of 2) 2008 [id number] Vaccine (1 - 20 24-25 season) 2024 [...]
--- NOTE | 2025-05-06 15:36 | P.CONS_ITS ---
History of Present Illness *Admission Date: 05/05/25 *Reason for visit:: Abnormal CT (cornelius-splenic): abnormal splenic flexure per c- scope *History of present illness: This is a 64-year-old gentleman seen in consultation for evaluation regarding abnormal radiographic finding. See admission H&P HPI forwarded below. Colonoscopy performed yesterday by Dr. Nelson Cary reviewed. Questionable torsion at splenic flexure noted. CT scan performed earlier today reviewed. Worsening pulmonary metastatic burden. Fluid in/around the spleen concerning for possible hematoma or possible infected ascites. Forwarded from admission H&P: Mr. Gipson is a 64-year-old gentleman who is here for diagnostic colonoscopy. 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 Her CEA was elevated at 458. Her CAT scan has shown compression on the left side of the bowel with fluid-filled large and small bowel concerning for ileus versus colonic obstruction at the splenic flexure. She had developed constipation about 2 years ago which has gradually worsened. She does get intermittent abdominal discomfort. She has had a 35 pound weight loss over the last 6 months. Her last colonoscopy was many years ago. The examination is deemed medically necessary for diagnostic colonoscopy. The patient has been seen, interviewed and examined prior to the procedure by both myself and the anesthesia provider. [facility] Disclaimer: The information contained in this section may have been updated after the patient was seen, as this information can be updated by other users. Medical History (Updated 05/06/25 @ 15:41 by John Del Angel MD) Elevated troponin Metastatic squamous cell carcinoma involving lung with unknown primary site Disseminated malignancy of unknown primary Sepsis Pneumonia Mediastinal lymphadenopathy Dyspnea on exertion Smoking greater than 30 pack years Colonic mass Multiple lung nodules on CT Amputated right leg Hyperlipidemia Surgical History History of arterial bypass of lower limb History of right below knee amputation Family History Father Alcoholism Mother Cancer Breast Alzheimer's dementia Social History (Updated 05/05/25 @ 19:39 by Valerie Agarwal RN) Smoking Status: Former smoker years smoked: 40 alcohol intake: former substance use type: denies use current occupational status: disabled Travel in the last 8 weeks?: None Have you lived/traveled outside [place] in past 30 days?: No Contact w/someone who lives/traveled outside [place] past 30 days?: No Exposure to someone with infectious disease in past 14 days?: No Do you have a fever (greater than 100.4 F or 38 C)?: No Have you tested positive for COVID-19?: No Exposed to someone with COVID-19 in past 14 days?: No Do you have a sore throat?: No Do you have a cough?: No Do you have any weakness?: No Are you experiencing any nausea/vomitting?: No Do you have any diarrhea?: No Are you experiencing any unusual bleeding?: No Do you have any muscle aches/pain?: No Do you have any abdominal pain?: No Are you experiencing loss of taste or smell?: No Review of Systems Constitutional Constitutional: Reports weakness *Neurologic Neurologic: Reports system reviewed and no additional complaints, except as documented and Reports weakness Meds Home Medications and Allergies Home Medications ?Medication ?Instructions ?Recorded ?Confirmed ?Type atorvastatin 80 mg tablet 80 mg PO DAILY 07/14/2204/13 History albuterol sulfate 90 mcg/actuation 2 puff inhalation Q 4HP PRN 04/07/25 05/06/25 History aerosol inhaler Shortness Of Breath apixaban 5 mg tablet (Eliquis) 5 mg PO BID 04/07/25 History clopidogrel 75 mg tablet 75 mg PO DAILY 04/07/2504/13 History diltiazem HCl 180 mg 180 mg PO DAILY 04/07/25 History capsule,extended release 24 hr nicotine 14 mg/24 hr daily 1 patch transdermal DAILY # 28 ea 04/07/25 05/05/25 Rx transdermal patch diazepam 5 mg tablet 5 mg PO BIDP PRN Anxiety 08/0605/06/25 History tiotropium 2.5 mcg-olodaterol 2.5 2 puff inhalation DA GWEN 04/21/25 05/05/25 History mcg/actuation mist for inhalation (Stiolto Respimat) magnesium hydroxide 400 mg/5 mL 5 ml PO DAILY PRN Abdo maurisio 04/26/25 05/05/25 History oral suspension (Dulcolax Discomfort (magnesium hydroxide)) New Prescriptions to Start Prescriptions: Allergies Allergy/AdvReac Type Severity Reaction Status Date / Time No Known Allergies Allergy Verified 05/05/25 13:37 Exam (Inpt) Vital signs and Labs for Last 24 Hours: Temp Pulse Resp BP Pulse Ox O2 Del Method O2 Flow Rate 97.6 F 121 H 36 H 111/62 89 L Nasal Cannula 5 05/06/25 08:09 05/06/25 15:02 05/06/25 15:02 05/06/25 15:02 05/06/25 15:02 05/06/25 15:00 05/06/25 15:00 Laboratory Results - last 24 hr 05/05/25 15:54: POC Glucose 89 05/05/25 16:03: Urine Color Yellow, Urine Appearance Clear, Urine pH 6.0, Ur Specific Likely >= 1.030, Urine Protein 1+ A, Urine Glucose (UA) Negative, Urine Ketones 1+, Urine Blood Negative, Urine Nitrate Negative, Urine Bilirubin Negative, Urine Urobilinogen 0.2, Ur Leukocyte Esterase Negative, Urine RBC 3-5, Urine WBC 3-5, Ur Squamous Epith Cells 3-5, Urine Bacteria 1+, Hyaline Casts 5- 10, Urine Mucus 1+, Urine Sperm 1+ 05/05/25 16:12: WBC 19.8 H, RBC 2.94 L, Hgb 8.9 L, Hct 26.6 L, MCV 90.5, MCH 30.3, MCHC 33.5, RDW 13.9, Plt Count 327, MPV 9.6, Neut % (Auto) 89.0 H, Lymph % (Auto) 3.9 L, [place] % (Auto) 5.6, Eos % (Auto) 0.2, Baso % (Auto) 0.3, Neut # (Auto) 17.7 H, Lymph # (Auto) 0.8, [place] # (Auto) 1.1 H, Eos # (Auto) 0.0, Baso # (Auto) 0.1, Sodium 130 L, Potassium 4.1, Chloride 100, Carbon Dioxide 26, Anion Gap 8.1, BUN 13, Creatinine 0.60 L, Estimated Creat Clear 51, Estimated GFR 135, Est GFR ( Amer) 163, Glucose 98, Calcium 8.4, Total Bilirubin < 0.1 L, AST 24, ALT 14, Alkaline Phosphatase 97, Total Creatine Kinase 26 L, Troponin I < 0.01, Total Protein 4.4 L D, Albumin 2.5 L, Globulin 1.9, Albumin/Globulin Ratio 1.3 05/05/25 17:40: PT 11.9, INR 1.08, Lactate 5.0 H, Troponin I 0.01, NT-Pro-B Natriuret Pep 57.3 05/05/25 22:30: Lactate 6.3 H 05/05/25 23:21: Troponin I 1.21 H 05/06/25 00:00: Sodium 130 L, Potassium 4.8, Chloride 98, Carbon Dioxide 16 L, A nion Gap 20.8 H, BUN 21 H D, Creatinine 1.00 D, Estimated Creat Clear 50, Estimated GFR 75, Est GFR ( Amer) 90 D, Glucose 111 H, Calcium 9.1 05/06/25 01:09: Lactate 5.7 H 05/06/25 03:53: WBC 18.1 H, RBC 2.82 L, Hgb 8.6 L, Hct 25.2 L, MCV 89.4, MCH 30.5, MCHC 34.1, RDW 14.1, Plt Count 367, MPV 10.0, Neut % (Auto) 84.8 H, Lymph % (Auto) 5.1 L, [place] % (Auto) 9.1, Eos % (Auto) 0.0 L, Baso % (Auto) 0.2, Neut # (Auto) 15.4 H, Lymph # (Auto) 0.9, [place] # (Auto) 1.7 H, Eos # (Auto) 0.0, Baso # (Auto) 0.0, Total Counted 100, Neutrophils % (Manual) 87 H, Lymphocytes % (Manual) 2 L, Monocytes % (Manual) 11 H, Magnesium 1.7, Troponin I 1.09 H 05/06/25 11:13: Specimen Source Right brachial, O2 % 2 lpm, ABG pH 7.46 H, ABG pCO2 31.7 L, ABG pO2 60.1 L, ABG HCO3 22.2, ABG Total CO2 23.2, ABG O2 Saturation 89 L, ABG Base Excess -1.2, Rudy Test N/a 05/06/25 11:22: Chlamy pneumoniae PCR Not detected, Adenovirus (PCR) Not detected, B. pertussis DNA (PCR) Not detected, Coronavirus OC43 (PCR) Not detected, Coronavirus HKU1 (PCR) Not detected, Coronavirus 229E (PCR) Not detected, SARS-CoV-2 (PCR) Not detected, Coronavirus NL63 (PCR) Not detected, Human Metapneumovir PCR Not detected, Influenza A (H1) PCR Not detected, Influ A (H1N1/09) PCR Not detected, Influenza A (H3) PCR Not detected, Influenza Type A (PCR) Not detected, Influenza Type B (PCR) Not detected, M. pneumoniae (PCR) Not detected, Parainfluenza 1 (PCR) Not detected, Parainfluenza 2 (PCR) Not detected, Parainfluenza 3 (PCR) Not detected, Parainfluenza 4 (PCR) Not detected, RSV (PCR) Not detected, Entero/Rhino (PCR) Not detected I & O for Labs for Last 24 Hours: Intake & Output 05/04/25 05/05/25 05/06/25 05/07/25 11:59 11:59 11:59 11:59 Intake Total 2385.274 / 2418.649 1123.375 / 1123.375 Output Total 400 / 500 450 / 450 Balance 1985.274 / 1918.649 673.375 / 673.375 Weight 107 lb 6.4 oz 107 lb 6.4 oz Constitutional: no acute distress and chronically ill appearing Cardiac: Present Tachycardia GI: Present tenderness; Absent distention, guarding or rebound Results Labs 05/06/25 03:53 05/06/25 00:00 Labs: Laboratory Results - last 24 hr 05/05/25 15:54: POC Glucose 89 05/05/25 16:03: Urine Color Yellow, Urine Appearance Clear, Urine pH 6.0, Ur Specific Likely >= 1.030, Urine Protein 1+ A, Urine Glucose (UA) Negative, Urine Ketones 1+, Urine Blood Negative, Urine Nitrate Negative, Urine Bilirubin Negative, Urine Urobilinogen 0.2, Ur Leukocyte Esterase Negative, Urine RBC 3-5, Urine WBC 3-5, Ur Squamous Epith Cells 3-5, Urine Bacteria 1+, Hyaline Casts 5- 10, Urine Mucus 1+, Urine Sperm 1+ 05/05/25 16:12: WBC 19.8 H, RBC 2.94 L, Hgb 8.9 L, Hct 26.6 L, MCV 90.5, MCH 30.3, MCHC 33.5, RDW 13.9, Plt Count 327, MPV 9.6, Neut % (Auto) 89.0 H, Lymph % (Auto) 3.9 L, [place] % (Auto) 5.6, Eos % (Auto) 0.2, Baso % (Auto) 0.3, Neut # (Auto) 17.7 H, Lymph # (Auto) 0.8, [place] # (Auto) 1.1 H, Eos # (Auto) 0.0, Baso # (Auto) 0.1, Sodium 130 L, Potassium 4.1, Chloride 100, Carbon Dioxide 26, Anion Gap 8.1, BUN 13, Creatinine 0.60 L, Estimated Creat Clear 51, Estimated GFR 135, Est GFR ( Amer) 163, Glucose 98, Calcium 8.4, Total Bilirubin < 0.1 L, AST 24, ALT 14, Alkaline Phosphatase 97, Total Creatine Kinase 26 L, Troponin I < 0.01, Total Protein 4.4 L D, Albumin 2.5 L, Globulin 1.9, Albumin/Globulin Ratio 1.3 05/05/25 17:40: PT 11.9, INR 1.08, Lactate 5.0 H, Troponin I 0.01, NT-Pro-B Natriuret Pep 57.3 05/05/25 22:30: Lactate 6.3 H 05/05/25 23:21: Troponin I 1.21 H 05/06/25 00:00: Sodium 130 L, Potassium 4.8, Chloride 98, Carbon Dioxide 16 L, A nion Gap 20.8 H, BUN 21 H D, Creatinine 1.00 D, Estimated Creat Clear 50, Estimated GFR 75, Est GFR ( Amer) 90 D, Glucose 111 H, Calcium 9.1 05/06/25 01:09: Lactate 5.7 H 05/06/25 03:53: WBC 18.1 H, RBC 2.82 L, Hgb 8.6 L, Hct 25.2 L, MCV 89.4, MCH 30.5, MCHC 34.1, RDW 14.1, Plt Count 367, MPV 10.0, Neut % (Auto) 84.8 H, Lymph % (Auto) 5.1 L, [place] % (Auto) 9.1, Eos % (Auto) 0.0 L, Baso % (Auto) 0.2, Neut # (Auto) 15.4 H, Lymph # (Auto) 0.9, [place] # (Auto) 1.7 H, Eos # (Auto) 0.0, Baso # (Auto) 0.0, Total Counted 100, Neutrophils % (Manual) 87 H, Lymphocytes % (Manual) 2 L, Monocytes % (Manual) 11 H, Magnesium 1.7, Troponin I 1.09 H 05/06/25 11:13: Specimen Source Right brachial, O2 % 2 lpm, ABG pH 7.46 H, ABG pCO2 31.7 L, ABG pO2 60.1 L, ABG HCO3 22.2, ABG Total CO2 23.2, ABG O2 Saturation 89 L, ABG Base Excess -1.2, Rudy Test N/a 05/06/25 11:22: Chlamy pneumoniae PCR Not detected, Adenovirus (PCR) Not detected, B. pertussis DNA (PCR) Not detected, Coronavirus OC43 (PCR) Not detected, Coronavirus HKU1 (PCR) Not detected, Coronavirus 229E (PCR) Not detected, SARS-CoV-2 (PCR) Not detected, Coronavirus NL63 (PCR) Not detected, Human Metapneumovir PCR Not detected, Influenza A (H1) PCR Not detected, Influ A (H1N1/09) PCR Not detected, Influenza A (H3) PCR Not detected, Influenza Type A (PCR) Not detected, Influenza Type B (PCR) Not detected, M. pneumoniae (PCR) Not detected, Parainfluenza 1 (PCR) Not detected, Parainfluenza 2 (PCR) Not detected, Parainfluenza 3 (PCR) Not detected, Parainfluenza 4 (PCR) Not detected, RSV (PCR) Not detected, Entero/Rhino (PCR) Not detected Assessment and Plan *Assessment and plan (1) Abnormal CT scan: Problem Comment: Fluid around spleen of uncertain etiology (hematoma, inflammatory, infectious, etc.) Status: Acute Category: Medical Code(s): R93.89 - Abnormal findings on diagnostic imaging of other specified body structures (2) Colonic volvulus: Problem Comment: Questionable torsion at splenic flexure per colonoscopy dated May 05, 2025 Status: Acute Category: Medical Code(s): K56.2 - Volvulus (3) Metastatic squamous cell carcinoma involving lung with unknown primary site: Status: Acute Qualifiers: Laterality: left Qualified Code(s): C78.02 - Secondary malignant neoplasm of left lung; C80.1 - Malignant (primary) neoplasm, unspecified Category: Medical Code(s): C78.00 - Secondary malignant neoplasm of unspecified lung; C80.1 - Malignant (primary) neoplasm, unspecified (4) Disseminated malignancy of unknown primary: Status: Acute Category: Medical Code(s): C80.0 - Disseminated malignant neoplasm, unspecified; C80.1 - Malignant (primary) neoplasm, unspecified (5) Sepsis: Status: Acute Qualifiers: Sepsis type: sepsis due to unspecified organism Sepsis acute organ dysfunction status: unspecified Qualified Code(s): A41.9 - Sepsis, unspecified organism Category: Medical Code(s): A41.9 - Sepsis, unspecified organism (6) Pneumonia: Status: Acute Qualifiers: Aspiration pneumonia type: unspecified Laterality: unspecified laterality Lung location: unspecified part of lung Category: Medical Code(s): J18.9 - Pneumonia, unspecified organism (7) Shock: Status: Acute Category: Medical Code(s): R57.9 - Shock, unspecified (8) Elevated CEA: Status: Acute Category: Medical Code(s): R97.0 - Elevated carcinoembryonic antigen [CEA] Plan The patient does exhibit abdominal tenderness/pain; however, he does not have peritonitis. He has profound comorbid medical conditions precluding any potential major surgical intervention at this facility. Most likely, the risk of any surgical intervention would be greater than potential benefit. Although he does not have definitive need for emergent intervention, immediate transfer to a tertiary facility warranted (as opposed to continued current management with potential decompensation). He has specifically expressed desire to do everything even if it means major surgery . Additional radiographic evaluation and or studies (potential aspiration of fluid collection, etc.) would also be more appropriately obtained at a tertiary facility.
[2025-05-06] MEDS: ACETAMINOPHEN 325MG TAB 650 MG PO (16:02)
--- NOTE | 2025-05-06 16:35 | PC.NURSE ---
remains off levophed gtt at this time. remains alert and oriented. sats fluctuate a lot through out the day and titration of o2 has been up and down currently at 4l. remains tachy on tele.requesting sweet to be removed. has rang out as needed. turns self in bed. visitors have been at bedside and has been updated as requested. encouraged patient to rest and ring out as needed
--- NOTE | 2025-05-06 17:59 | P.DS_ITS ---
General Admission date:: 05/05/25 Discharge date: 05/06/25 HPI HPI HPI: This is a 64-year-old gentleman seen in consultation for evaluation regarding abnormal radiographic finding. See admission H&P HPI forwarded below. Colonoscopy performed yesterday by Dr. Nelson Cary reviewed. Questionable torsion at splenic flexure noted. CT scan performed earlier today reviewed. Worsening pulmonary metastatic burde n. Fluid in/around the spleen concerning for possible hematoma or possible infected ascites. Forwarded from admission H&P: Mr. Gipson is a 64-year-old gentleman who is here for diagnostic colonoscopy. 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 Her CEA was elevated at 458. Her CAT scan has shown compression on the left side of the bowel with fluid-filled large and small bowel concerning for ileus versus colonic obstruction at the splenic flexure. She had developed constipation about 2 years ago which has gradually worsened. She does get intermittent abdominal discomfort. She has had a 35 pound weight loss over the last 6 months. Her last colonoscopy was many years ago. The examination is deemed medically necessary for diagnostic colonoscopy. The patient has been seen, interviewed and examined prior to the procedure by both myself and the anesthesia provider. Hospital Course Hospital Course Hospital Course: This is a 64-year-old gentleman seen in consultation for evaluation regarding abnormal radiographic finding. See admission H&P HPI forwarded below. Colonoscopy performed by Dr. Nelson Cary reviewed. Questionable torsion at splenic flexure noted. CT scan performed earlier today reviewed. Worsening pulmonary metastatic burden. Fluid in/around the spleen concerning for possible hematoma or possible infected ascites. patient was transferred to facilty with IR capability Forwarded from admission H&P: Mr. Gipson is a 64-year-old gentleman who is here for diagnostic colonoscopy. 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 Her CEA was elevated at 458. Her CAT scan has shown compression on the left side of the bowel with fluid-filled large and small bowel concerning for ileus versus colonic obstruction at the splenic flexure. She had developed constipation about 2 years ago which has gradually worsened. She does get intermittent abdominal discomfort. She has had a 35 pound weight loss over the last 6 months. Her last colonoscopy was many years ago. The examination is deemed medically necessary for diagnostic colonoscopy. The patient has been seen, interviewed and examined prior to the procedure by both myself and the anesthesia provider. Exam Data for Last 24 hours Vital signs and Labs for Last 24 Hours: Temp Pulse Resp BP Pulse Ox O2 Del Method O2 Flow Rate 97.6 F 122 H 36 H 82/57 L 86 L Nasal Cannula 4 05/06/25 08:09 05/06/25 17:46 05/06/25 17:46 05/06/25 17:46 05/06/25 17:46 05/06/25 17:00 05/06/25 17:00 Laboratory Results - last 24 hr 05/05/25 16:03: Urine Color Yellow, Urine Appearance Clear, Urine pH 6.0, Ur Specific [place] >= 1.030, Urine Protein 1+ A, Urine Glucose (UA) Negative, Urine Ketones 1+, Urine Blood Negative, Urine Nitrate Negative, Urine Bilirubin Negative, Urine Urobilinogen 0.2, Ur Leukocyte Esterase Negative, Urine RBC 3-5, Urine WBC 3-5, Ur Squamous Epith Cells 3-5, Urine Bacteria 1+, Hyaline Casts 5- 10, Urine Mucus 1+, Urine Sperm 1+ 05/05/25 17:40: PT 11.9, INR 1.08, Lactate 5.0 H, Troponin I 0.01, NT-Pro-B Natriuret Pep 57.3 05/05/25 22:30: Lactate 6.3 H 05/05/25 23:21: Troponin I 1.21 H 05/06/25 00:00: Sodium 130 L, Potassium 4.8, Chloride 98, Carbon Dioxide 16 L, Anion Gap 20.8 H, BUN 21 H D, Creatinine 1.00 D, Estimated Creat Clear 50, Estimated GFR 75, Est GFR ( Amer) 90 D, Glucose 111 H, Calcium 9.1 05/06/25 01:09: Lactate 5.7 H 05/06/25 03:53: WBC 18.1 H, RBC 2.82 L, Hgb 8.6 L, Hct 25.2 L, MCV 89.4, MCH 30.5, MCHC 34.1, RDW 14.1, Plt Count 367, MPV 10.0, Neut % (Auto) 84.8 H, Lymph % (Auto) 5.1 L, [place] % (Auto) 9.1, Eos % (Auto) 0.0 L, Baso % (Auto) 0.2, Neut # (Auto) 15.4 H, Lymph # (Auto) 0.9, [place] # (Auto) 1.7 H, Eos # (Auto) 0.0, Baso # (Auto) 0.0, Total Counted 100, Neutrophils % (Manual) 87 H, Lymphocytes % (Manual) 2 L, Monocytes % (Manual) 11 H, Magnesium 1.7, Troponin I 1.09 H 05/06/25 11:13: Specimen Source Right brachial, O2 % 2 lpm, ABG pH 7.46 H, ABG pCO2 31.7 L, ABG pO2 60.1 L, ABG HCO3 22.2, ABG Total CO2 23.2, ABG O2 Saturation 89 L, ABG Base Excess -1.2, Rudy Test N/a 05/06/25 11:22: Chlamy pneumoniae PCR Not detected, Adenovirus (PCR) Not detected, B. pertussis DNA (PCR) Not detected, Coronavirus OC43 (PCR) Not detected, Coronavirus HKU1 (PCR) Not detected, Coronavirus 229E (PCR) Not detected, SARS-CoV-2 (PCR) Not detected, Coronavirus NL63 (PCR) Not detected, Human Metapneumovir PCR Not detected, Influenza A (H1) PCR Not detected, Influ A (H1N1/09) PCR Not detected, Influenza A (H3) PCR Not detected, Influenza Type A (PCR) Not detected, Influenza Type B (PCR) Not detected, M. pneumoniae (PCR) Not detected, Parainfluenza 1 (PCR) Not detected, Parainfluenza 2 (PCR) Not detected, Parainfluenza 3 (PCR) Not detected, Parainfluenza 4 (PCR) Not detected, RSV (PCR) Not detected, Entero/Rhino (PCR) Not detected I & O for Last 24 hours: Intake & Output 05/03/25 05/04/25 05/05/25 05/06/25 23:59 23:59 23:59 23:59 Intake Total 713.658 / 5547.817 2237.991 / 2919.991 Output Total 100 / 100 750 / 750 Balance 613.658 / 9012.978 7828.991 / 2169.991 Weight 49.442 kg 48.563 kg 48.716 kg Microbiology Reports for the Last 24 Hours: Microbiology 05/05/25 17:40 Blood Blood Culture - Preliminary NO GROWTH AFTER 24 HOURS 05/05/25 17:40 Blood Blood Culture - Preliminary NO GROWTH AFTER 24 HOURS Constitutional Constitutional: no acute distress *Routine HEENT Exam Head: Present normocephalic Eye: Present EOMI and PERRL ENT: Present mucous membranes moist *Routine Neck Exam Neck: Present supple; Absent lymphadenopathy *Routine Respiratory Exam Respiratory: Present CTA bilaterally *Routine Cardiovascular Exam Cardiovascular: Present RRR *Routine Abdominal Exam Abdominal: Present soft and normoactive bowel sounds; Absent tenderness *Routine Extremities Exam Extremities: Absent cyanosis, clubbing or edema *Routine Skin Exam Skin: Present warm; Absent rash *Routine Neurological Exam Neurological: Present alert and oriented X3 Results Data Completed and Pending Labs on day of discharge: Labs from last 24 hours 05/06/25 05/06/25 05/06/25 11:22 11:13 03:53 WBC 18.1 H RBC 2.82 L Hgb 8.6 L Hct 25.2 L MCV 89.4 MCH 30.5 MCHC 34.1 RDW 14.1 Plt Count 367 MPV 10.0 Neut % (Auto) 84.8 H Lymph % (Auto) 5.1 L [place] % (Auto) 9.1 Eos % (Auto) 0.0 L Baso % (Auto) 0.2 Neut # (Auto) 15.4 H Lymph # (Auto) 0.9 [place] # (Auto) 1.7 H Eos # (Auto) 0.0 Baso # (Auto) 0.0 Total Counted 100 Neutrophils % (Manual) 87 H Lymphocytes % (Manual) 2 L Monocytes % (Manual) 11 H PT INR Specimen Source Right brachial O2 % 2 lpm ABG pH 7.46 H ABG pCO2 31.7 L ABG pO2 60.1 L ABG HCO3 22.2 ABG Total CO2 23.2 ABG O2 Saturation 89 L ABG Base Excess -1.2 Rudy Test N/a Sodium Potassium Chloride Carbon Dioxide Anion Gap BUN Creatinine Estimated Creat Clear Estimated GFR Est GFR ( Amer) Glucose Lactate Calcium Magnesium 1.7 Troponin I 1.09 H NT-Pro-B Natriuret Pep Urine Color Urine Appearance Urine pH Ur Specific [place] Urine Protein Urine Glucose (UA) Urine Ketones Urine Blood Urine Nitrate Urine Bilirubin Urine Urobilinogen Ur Leukocyte Esterase Urine RBC Urine WBC Ur Squamous Epith Cells Urine Bacteria Hyaline Casts Urine Mucus Urine Sperm Chlamy pneumoniae PCR Not detected Adenovirus (PCR) Not detected B. pertussis DNA (PCR) Not detected Coronavirus OC43 (PCR) Not detected Coronavirus HKU1 (PCR) Not detected Coronavirus 229E (PCR) Not detected SARS-CoV-2 (PCR) Not detected Coronavirus NL63 (PCR) Not detected Human Metapneumovir PCR Not detected Influenza A (H1) PCR Not detected Influ A (H1N1/09) PCR Not detected Influenza A (H3) PCR Not detected Influenza Type A (PCR) Not detected Influenza Type B (PCR) Not detected M. pneumoniae (PCR) Not detected Parainfluenza 1 (PCR) Not detected Parainfluenza 2 (PCR) Not detected Parainfluenza 3 (PCR) Not detected Parainfluenza 4 (PCR) Not detected RSV (PCR) Not detected Entero/Rhino (PCR) Not detected 05/06/25 05/06/25 05/05/25 01:09 00:00 23:21 WBC RBC Hgb Hct MCV MCH MCHC RDW Plt Count MPV Neut % (Auto) Lymph % (Auto) [place] % (Auto) Eos % (Auto) Baso % (Auto) Neut # (Auto) Lymph # (Auto) [place] # (Auto) Eos # (Auto) Baso # (Auto) Total Counted Neutrophils % (Manual) Lymphocytes % (Manual) Monocytes % (Manual) PT INR Specimen Source O2 % ABG pH ABG pCO2 ABG pO2 ABG HCO3 ABG Total CO2 ABG O2 Saturation ABG Base Excess Rudy Test Sodium 130 L Potassium 4.8 Chloride 98 Carbon Dioxide 16 L Anion Gap 20.8 H BUN 21 H D Creatinine 1.00 D Estimated Creat Clear 50 Estimated GFR 75 Est GFR ( Amer) 90 D Glucose 111 H Lactate 5.7 H Calcium 9.1 Magnesium Troponin I 1.21 H NT-Pro-B Natriuret Pep Urine Color Urine Appearance Urine pH Ur Specific [place] Urine Protein Urine Glucose (UA) Urine Ketones Urine Blood Urine Nitrate Urine Bilirubin Urine Urobilinogen Ur Leukocyte Esterase Urine RBC Urine WBC Ur Squamous Epith Cells Urine Bacteria Hyaline Casts Urine Mucus Urine Sperm Chlamy pneumoniae PCR Adenovirus (PCR) B. pertussis DNA (PCR) Coronavirus OC43 (PCR) Coronavirus HKU1 (PCR) Coronavirus 229E (PCR) SARS-CoV-2 (PCR) Coronavirus NL63 (PCR) Human Metapneumovir PCR Influenza A (H1) PCR Influ A () PCR Influenza A (H3) PCR Influenza Type A (PCR) Influenza Type B (PCR) M. pneumoniae (PCR) Parainfluenza 1 (PCR) Parainfluenza 2 (PCR) Parainfluenza 3 (PCR) Parainfluenza 4 (PCR) RSV (PCR) Entero/Rhino (PCR) 05/05/25 05/05/25 05/05/25 22:30 17:40 16:03 WBC RBC Hgb Hct MCV MCH MCHC RDW Plt Count MPV Neut % (Auto) Lymph % (Auto) [place] % (Auto) Eos % (Auto) Baso % (Auto) Neut # (Auto) Lymph # (Auto) [place] # (Auto) Eos # (Auto) Baso # (Auto) Total Counted Neutrophils % (Manual) Lymphocytes % (Manual) Monocytes % (Manual) PT 11.9 INR 1.08 Specimen Source O2 % ABG pH ABG pCO2 ABG pO2 ABG HCO3 ABG Total CO2 ABG O2 Saturation ABG Base Excess Rudy Test Sodium Potassium Chloride Carbon Dioxide Anion Gap BUN Creatinine Estimated Creat Clear Estimated GFR Est GFR ( Amer) Glucose Lactate 6.3 H 5.0 H Calcium Magnesium Troponin I 0.01 NT-Pro-B Natriuret Pep 57.3 Urine Color Yellow Urine Appearance Clear Urine pH 6.0 Ur Specific [place] >= 1.030 Urine Protein 1+ A Urine Glucose (UA) Negative Urine Ketones 1+ Urine Blood Negative Urine Nitrate Negative Urine Bilirubin Negative Urine Urobilinogen 0.2 Ur Leukocyte Esterase Negative Urine RBC 3-5 Urine WBC 3-5 Ur Squamous Epith Cells 3-5 Urine Bacteria 1+ Hyaline Casts 5-10 Urine Mucus 1+ Urine Sperm 1+ Chlamy pneumoniae PCR Adenovirus (PCR) B. pertussis DNA (PCR) Coronavirus OC43 (PCR) Coronavirus HKU1 (PCR) Coronavirus 229E (PCR) SARS-CoV-2 (PCR) Coronavirus NL63 (PCR) Human Metapneumovir PCR Influenza A (H1) PCR Influ A () PCR Influenza A (H3) PCR Influenza Type A (PCR) Influenza Type B (PCR) M. pneumoniae (PCR) Parainfluenza 1 (PCR) Parainfluenza 2 (PCR) Parainfluenza 3 (PCR) Parainfluenza 4 (PCR) RSV (PCR) Entero/Rhino (PCR) Preliminary micro results at discharge 05/05/25 17:40 Blood Culture - Preliminary Blood NO GROWTH AFTER 24 HOURS 05/05/25 17:40 Blood Culture - Preliminary Blood NO GROWTH AFTER 24 HOURS DS: Diagnosis Discharge Diagnosis (1) Abnormal CT scan: Status: Acute Code(s): R93.89 - Abnormal findings on diagnostic imaging of other specified body structures Problem details: Fluid around spleen of uncertain etiology (hematoma, inflammatory, infectious, etc.) (2) Colonic volvulus: Status: Acute Code(s): K56.2 - Volvulus Problem details: Questionable torsion at splenic flexure per colonoscopy dated May 05, 2025 (3) Metastatic squamous cell carcinoma involving lung with unknown primary site: Status: Acute Code(s): C78.00 - Secondary malignant neoplasm of unspecified lung; C80.1 - Malignant (primary) neoplasm, unspecified Qualifiers: Laterality: left Qualified Code(s): C78.02 - Secondary malignant neoplasm of left lung; C80.1 - Malignant (primary) neoplasm, unspecified (4) Disseminated malignancy of unknown primary: Status: Acute Code(s): C80.0 - Disseminated malignant neoplasm, unspecified; C80.1 - Malignant ( primary) neoplasm, unspecified (5) Sepsis: Status: Acute Code(s): A41.9 - Sepsis, unspecified organism Qualifiers: Sepsis acute organ dysfunction status: unspecified Sepsis type: sepsis due to unspecified organism Qualified Code(s): A41.9 - Sepsis, unspecified organism (6) Pneumonia: Status: Acute Code(s): J18.9 - Pneumonia, unspecified organism Qualifiers: Aspiration pneumonia type: unspecified Laterality: unspecified laterality Lung location: unspecified part of lung (7) Shock: Status: Acute Code(s): R57.9 - Shock, unspecified (8) Elevated CEA: Status: Acute Code(s): R97.0 - Elevated carcinoembryonic antigen [CEA] Meds Home Medications and Allergies Home Medications ?Medication ?Instructions ?Recorded ?Confirmed ?Type atorvastatin 80 mg tablet 80 mg PO DAILY 07/14/2204/13 History albuterol sulfate 90 mcg/actuation 2 puff inhalation Q 4HP PRN 04/07/25 05/06/25 History aerosol inhaler Shortness Of Breath apixaban 5 mg tablet (Eliquis) 5 mg PO BID 04/07/25 History clopidogrel 75 mg tablet 75 mg PO DAILY 04/07/2504/13 History diltiazem HCl 180 mg 180 mg PO DAILY 04/07/25 History capsule,extended release 24 hr nicotine 14 mg/24 hr daily 1 patch transdermal DAILY # 28 ea 04/07/25 05/05/25 Rx transdermal patch diazepam 5 mg tablet 5 mg PO BIDP PRN Anxiety 08/0605/06/25 History tiotropium 2.5 mcg-olodaterol 2.5 2 puff inhalation DA GWEN 04/21/25 05/05/25 History mcg/actuation mist for inhalation (Stiolto Respimat) magnesium hydroxide 400 mg/5 mL 5 ml PO DAILY PRN Abdo maurisio 04/26/25 05/05/25 History oral suspension (Dulcolax Discomfort (magnesium hydroxide)) New Prescriptions to Start Prescriptions: Allergies Allergy/AdvReac Type Severity Reaction Status Date / Time No Known Allergies Allergy Verified 05/05/25 13:37 Discharge Plan Disposition Patient Disposition: [facility] Bed Condition: Critical Discharge Order Discharge Orders: Discharge Order (Routine); Ordered 05/06/25 Ordered By: Santino Barbosa Follow up Plan Prescriptions/Medication Reconciliation: Continued diltiazem HCl 180 mg capsule,extended release 24hr 180 mg PO DAILY Patient Comments: TAKE 1 CAPSULE BY MOUTH ONCE DAILY. clopidogrel 75 mg tablet 75 mg PO DAILY Patient Comments: TAKE 1 TABLET BY MOUTH ONCE DAILY. albuterol sulfate 90 mcg/actuation HFA aerosol inhaler 2 puff inhalation Q4HP PRN (Reason: Shortness Of Breath) Patient Comments: INHALE 2 PUFFS INTO THE LUNGS EVERY 4 HOURS NEEDED FOR COUGH OR SHORTNESS OF BREATH. Eliquis 5 mg tablet 5 mg PO BID nicotine 14 mg/24 hr patch 24 hour 1 patch transdermal DAILY Qty: 28 2RF magnesium hydroxide [Dulcolax (magnesium hydroxide)] 400 mg/5 mL suspension 5 ml PO DAILY PRN (Reason: Abdominal Discomfort) diazepam 5 mg tablet 5 mg PO BIDP PRN (Reason: Anxiety) Patient Comments: TAKE 1 TABLET BY MOUTH TWICE DAILY NEEDED. Stiolto Respimat 2.5-2.5 mcg/actuation mist 2 puff inhalation DAILY Patient Comments: INHALE 2 PUFFS INTO THE LUNGS ONCE DAILY. atorvastatin 80 mg Tablet 80 mg PO DAILY Problem Reconciliation Problems Reviewed?: Yes Patient Discharge Instructions ACTIVITY: Continue current activity DIET: continue same diet Patient Instructions: DI for Colonoscopy, DI for Moderate Sedation Print Language: Slovak Providers Primary Care Provider: Aliyah Lyles Admit Provider: Santino Barbosa Attending Provider: Santino Barbosa
--- NOTE | 2025-05-06 18:28 | PC.NURSE ---
called and relayed about possible transfer to [facility] or tomorrow. would let her know when bed was assigned.
--- NOTE | 2025-05-06 18:37 | PC.NURSE ---
attempted to call report to ccu at [facility]. they asked for us to call back in 30 mins
--- NOTE | 2025-05-06 20:24 | PC.NURSE ---
Called and gave an update to Norma REICH at [facility] in the CCU regarding new IV's, Norepi and and EMS ETA for pickup for 2129 from facility.
--- NOTE | 2025-05-06 21:35 | PC.NURSE ---
EMS here currently to transfer patient to [facility]. Report given and called gave update to Facility with ETA. Patient left on Norepi @ 8mcg or 15ml/hr and VSS upon leaving facility.
--- NOTE | 2025-05-06 21:36 | PC.NURSE ---
Pt discharged to [facility] @ 1840
[2025-05-07 04:03] LABS: MRSA DNA PCR Negative (Negative)
== END 2025-05-06 21:30 | disposition swing bed (61) | DRG 280 ==
LOC: ICU 05-06 05:32
PROVIDERS: Internal Medicine Adolescent Medicine; Internal Medicine Gastroenterology; Internal Medicine Pulmonary Disease; Admitting Provider Internal Medicine; PCP Nurse Practitioner Family; Visit Provider Internal Medicine
PROC: 0DJD8ZZ Inspection of Lower Intestinal Tract, Via Natural or Artificial Opening Endoscopic (ICD-10-PCS; CPT 45378; principal; 2025-05-05 15:00)
DX: I95.81 Postprocedural hypotension (principal); A41.9 Sepsis, unspecified organism; I21.A1 Myocardial infarction type 2; J18.9 Pneumonia, unspecified organism; K56.2 Volvulus; R47.81 Slurred speech; Z68.1 Body mass index [BMI] 19.9 or less, adult; C34.32 Malignant neoplasm of lower lobe, left bronchus or lung; C78.5 Secondary malignant neoplasm of large intestine and rectum; I73.9 Peripheral vascular disease, unspecified; R63.4 Abnormal weight loss; K63.5 Polyp of colon; K64.8 Other hemorrhoids; E78.5 Hyperlipidemia, unspecified; E86.1 Hypovolemia; I10 Essential (primary) hypertension; Z79.899 Other long term (current) drug therapy; Z79.02 Long term (current) use of antithrombotics/antiplatelets; Z79.01 Long term (current) use of anticoagulants; Z87.891 Personal history of nicotine dependence; Z89.611 Acquired absence of right leg above knee
CPT/HCPCS: 36415; 51702; 70470; 71045; 71275; 80048; 80053; 81001; 82550; 82803; 82962; 83605; 83735; 83880; 84484; 85007; 85025; 85610; 87040; 87081; 87633; 87641; 88305; 93005; 93306; 94640; 94761; 97163; J0696; J2003; J2405; J2543; J2704; J7120; Q9967